=== PATIENT | female | born 2000 | race Caucasian/White ===

== ENCOUNTER 2020-05-05 18:26 | Observation (INO) | payer OTHER, SELFPAY ==
[2020-05-05] VITALS (8 sets, daily range): BP systolic 124–136; BP diastolic 62–86; PULSE 55–112; RESP 16–20; TEMP 37.3–37.4; O2SAT 97–100; BMI 22.4
--- NOTE | ~2020-05-05 | XR_ITS ---
EXAMINATION: XR abdomen/kub 1V DATE: 05/05/2020 19:20 INDICATION: Chest and abdominal burning pain. Vomiting. TECHNIQUE: A supine view of the abdomen was obtained. COMPARISON: None. FINDINGS: There are no dilated loops of bowel. There is a small volume of stool in the colon. A 2 mm calcification in right pelvis may be a phlebolith. IMPRESSION: 1. Normal bowel gas pattern. Reviewed, dictated and finalized at location A.
--- NOTE | ~2020-05-05 | CT_ITS ---
EXAMINATION: CT abdomen pelvis w con DATE: 05/05/2020 19:45 INDICATION: Epigastric abdominal pain. Nausea and vomiting. TECHNIQUE: Computed tomography (CT) of the abdomen and pelvis was performed with 100 mL Omnipaque 350 intravenous contrast. Automated exposure control and iterative reconstruction technique were employe d. The dose-length product was 219.98 mGy-cm. COMPARISON: None. FINDINGS: The visualized portions of the lung bases are clear without pneumonia or pleural effusion. The heart size is normal. No pericardial effusion. The liver demonstrates focal steatosis adjacent to ligamentum teres. The gallbladder, spleen, pancreas, adrenal glands, and kidneys are normal. There a re no dilated loops of bowel. The appendix is normal. There are no pathologically enlarged lymph node s. There is no free intraperitoneal fluid. The bones are unremarkable. IMPRESSION: 1. No etiology for the patient's symptoms. Reviewed, dictated and finalized at location A.
--- NOTE | 2020-05-05 18:49 | ED.ABDPAIN ---
HPI - Abdominal Pain General Chief Complaint: Abdominal Pain <Jonh Cervantes PA-C - Last Filed: 05/05/20 20:43> Stated Complaint: abd pain, burning <Jonh Cervantes PA-C - Last Filed: 05/05/20 20:43> Time Seen by Provider: 05/05/20 18:31 <Jonh Cervantes PA-C - Last Filed: 05/05/20 20:43> Source: patient <Jonh Cervantes PA-C - Last Filed: 05/05/20 20:43> Mode of arrival: ambulatory <Jonh Cervantes PA-C - Last Filed: 05/05/20 20:43> Limitations: no limitations <Jonh Cervantes PA-C - Last Filed: 05/05/20 20:43> History of Present Illness HPI narrative: Patient is a 19-year-old female who presents from urgent care noting nausea vomiting and intermittent abdominal pain that is been going on for over a month noting that she gets bouts of emesis denies any hematemesis diarrhea rectal bleeding urinary symptoms or vaginal complaints has been seen for this complaint in the past is currently not taking anything for her symptoms and is followed by primary care on arrival denies any pain <Jonh Cervantes PA-C - Last Filed: 05/05/20 20:43> Related Data Home Medications: Home Medications Medication Instructions Recorded Confirmed paroxetine HCl mg PO 05/05/20 <Jonh Cervantes PA-C - Last Filed: 05/05/20 20:43> Allergies/Adverse Reactions: Allergies Allergy/AdvReac Type Severity Reaction Status Date / Time No Known Allergies Allergy Verified 05/05/20 18:59 <Jonh Cervantes PA-C - Last Filed: 05/05/20 20:43> Review of Systems Review of Systems: All systems reviewed & are unremarkable except as noted in HPI and below <Jonh Cervantes PA-C - Last Filed: 05/05/20 20:43> [facility] Past Medical History Medical History: Medical History No significant past medical history <Jonh Cervantes PA-C - Last Filed: 05/05/20 20:43> Surgical History Surgical History: Surgical History No significant past surgical history <Jonh Cervantes PA-C - Last Filed: 05/05/20 20:43> Social History Social History: Social History Smoking status: Unknown if ever smoked Gender identity (if verbalized by the patient): Female <Jonh Cervantes PA-C - Last Filed: 05/05/20 20:43> Exam Narrative: Exam Narrative: GENERAL: Well-appearing, well-nourished, and in no acute distress. HEAD: Normocephalic, atraumatic. EYES: PERRLA and EOMI. ENT: Nares clear, no rhinorrhea or epistaxis. Mucous membranes moist. CHEST: Clear to auscultation. No respiratory distress. No wheezes rales or rhonchi HEART: Regular rate and rhythm. No murmur heard. Normal peripheral pulses. ABDOMEN: Soft, nontender, nondistended EXTREMITIES: Normal range of motion. No edema. SKIN: Warm, dry, no rash. NEURO: No focal deficits. Alert and oriented x3. PSYCH: Normal mood and affect. <Jonh Cervantes PA-C - Last Filed: 05/05/20 20:43> Course Course Emergency Course: Patient in the room in no distress aware of case findings treatment plan and diagnosis will be kept in hospital <Jonh Cervantes PA-C - Last Filed: 05/05/20 20:43> DESTINATION IMAGINATION COORDINATOR/PA Physician Supervision For this patient encounter, I reviewed the DESTINATION IMAGINATION COORDINATOR or PA documentation, treatment plan, and medical decision making; and I had [id number] time with this patient. <Jennifer Connor MD - Last Filed: 05/05/20 19:52> Consultations Consultation #1: Discussed case with hospitalist who is agreed to accept the patient <Jonh Cervantes PA-C - Last Filed: 05/05/20 20:43> Date: 05/05/20 <JENNY Colón Last Filed: 05/05/20 20:43> Time: 20:36 <Jonh Cervantes PA-C - Last Filed: 05/05/20 20:43> Vital Signs Vital signs: Vital Signs Temperature 37.4 C 05/05/20 18:29 Pulse Rate 112 H 05/05/20 18:29 Respiratory Rat
[2020-05-05] MEDS: FAMOTIDINE 20 MG/2 ML VIAL IV PUSH (18:58)
[2020-05-05] MEDS: SODIUM CHLORIDE 0.9% IV 1,000 ML 999 ML IV CONT ×2 (18:59→19:59)
[2020-05-05 19:11] LABS: Basophils Absolute Auto 0.1 K/mm3 (0.0-0.1); Basophils Percent Auto 0.4 % (0.2-1.2); Eosinophils Percent Auto 0.1 % (0-4.4); Hematocrit 47.5 % (37.0-47.0); Hemoglobin 16.5 g/dL (12.0-15.0); Immature Granulocyte Absolute 0.05 K/mm3 (0.00-0.031); Immature Granulocyte Percent A 0.3 % (0-0.5); Lymphocytes Absolute Auto 2.41 K/mm3 (0.9-3.2); Lymphocytes Percent Auto 15.3 % (18.3-44.2); Mean Corpuscular HGB Conc 34.7 g/dl (32-36); Mean Corpuscular Hemoglobin 29.5 pg (26-34); Mean Corpuscular Volume 84.8 fl (80-100); Mean Platelet Volume 10.9 fl (7.4-10.4); Monocytes Absolute Auto 1.5 K/mm3 (0.1-0.6); Monocytes Percent Auto 9.6 % (2.6-8.5); Neutrophils Absolute Auto 11.7 K/mm3 (1.3-6.7); Neutrophils Percent Auto 74.3 % (45.5-73.1); Platelet Count Result 375 k/mm3 (150-375); Red Cell Distribution Width 13.2 % (11.5-14.5); White Blood Count 15.8 K/mm3 (4.5-10.0)
[2020-05-05 19:17] LABS: Add Urine Microscopic? YES; Appearance Urine Clear (Clear); Bacteria Urine Trace /hpf; Bilirubin Urine Negative (Negative); Blood Urine 2+ (Negative); Color Urine Yellow (Yellow); Glucose Urine UA Negative (Negative); Ketones Urine 2+ mg/dL (Negative); Leukocyte Esterase Ur Negative LEU/UL (Negative); Mucus Urine Few /lpf; Nitrate Urine Negative (Negative); Protein Urine 1+ mg/dL (Negative); RBC Urine 0-2 /hpf (0-2); Specific Grav Ur 1.025 (1.001-1.035); Squamous Epithelial Cell Urine Moderate /hpf (Few)
[2020-05-05 19:25] LABS: Alanine Aminotransferase 30 U/L (4-35); Albumin Level 5.3 g/dL (3.5-5.1); Alkaline Phosphatase 78 U/L (38-126); Aspartate Amino Transferase 35 U/L (14-36); Bilirubin,Total 0.8 mg/dL (0.2-1.3); Blood Urea Nitrogen 19 mg/dL (7-17); Calcium 10.2 mg/dL (8.4-10.2); Carbon Dioxide 31 mmol/L (22-30); Chloride 87 mmol/L (98-107); Estimated CRCL calculation 77 ml/min; Estimated Glomerular Filt Rate > 60; Glucose 115 mg/dL (65-105); Lipase 57 U/L (23-300); Potassium 2.5 mmol/L (3.4-5.0); Sodium 135 mmol/L (137-145)
--- NOTE | 2020-05-05 19:31 | ECG_ITS ---
Measurements Intervals [place] Rate: 99 P: 68 HI: 161 QRS: 64 QRSD: 85 T: 36 QT: 336 QTc: 432 Interpretive Statements SINUS RHYTHM NORMAL ECG Electronically Signed On 05-06-2020 7:04:10 CDT by Arnoldo Leos D.O.
--- NOTE | 2020-05-05 22:15 | ADMGEN ---
This patient, Luciana Lepe, was admitted to 2 Medical Room 250-01. Patient/family oriented to hospital policies and general routines including ID bracelet, bed and alarms, visiting hours, pain management, procedures, bathroom and other care routines, personal items, smoking policy, room service/diet, and visiting hours. Valuables list has been completed. Information on how to activate the Rapid Response Team has been discussed. Patient/Family are encouraged to report perceived risks to care and to ask questions if they do not understand what they are told or what they should do.
[2020-05-05] MEDS: POTASSIUM CHLORIDE 20 MEQ PACKET (FOR LIQUID) 40 MEQ PO (22:26)
--- NOTE | 2020-05-05 23:00 | PM.IMHP ---
H&P: HPI History of Present Illness Chief complaint: Vomiting, abdominal pain Narrative: Date and time of patient contact: 05/05/2020 at 11:00 p.m. Luciana Lepe is a 19 year old female with a past medical history of anxiety and GERD who presented to the ER with 1 week of periumbilical abdominal pain and heartburn associated with vomiting. The patient reports that she has had 5 similar episodes to this over the last 3 months. She received a short course of Protonix for 14 days in December and a short course of Pepcid in March. She stop taking the Pepcid as she thought it may have been making her symptoms worse. She reports that she has been having heartburn with intermittent emesis. She reports that when she has a heartburn symptoms that will use in the last couple of hours before resolving. The pain is usually worse right before she has emesis and right after. She denies any hematemesis or coffee-ground emesis. She also eats a lot of tomato based products and juice. She thinks that her weight was around 130 lb when she was last at her doctor's office several months ago. Her weight currently is around 115 lbs. She has had a generally poor appetite and has been smoking marijuana 2 to 3 times a week to try to help. In hindsight, the patient agrees that marijuana may have actually been making her more nauseated. She denies any hematochezia or melena. She only reports the shortness of breath associated with the heartburn 10 accompanies other stomach symptoms. She denies any fevers or chills. She has not had any cough or congestion. ER staff reported the patient was still having intractable nausea and vomiting. However the time of my evaluation the patient stated she had not had any vomiting since presentation but had had some nausea. She is currently drinking the oral potassium supplement that I had ordered. She states that she has a terrible problem with anxiety. She is reluctant to take medications as she is worried about side effects. She was started on Paxil about 2 weeks ago. Review of Systems Review of Systems: Narrative: 12 systems were reviewed with pertinent positives and negatives per HPI. Except as documented in the HPI, all other systems were reviewed and are negative. [facility] Past Medical History Medical History (Updated 05/06/20 @ 01:32 by Miley Tellez DO) Anxiety GERD (gastroesophageal reflux disease) Surgical History Surgical History No significant past surgical history Family History Family History (Updated 05/05/20 @ 22:37 by Kerrie Mckay RN) Other Breast cancer Grandparent Cancer of lung Social History Social History (Updated 05/06/20 @ 01:26 by Milye Tellez, ) Social History: Primary care provider: Jonna HENDERSON Smoking status: Never smoker Alcohol intake: current Alcohol use details: She drinks an alcoholic beverage once every couple of months. Substance use: current Substance use type: marijuana Other substance usage details: marijuana help with appetite 2-3 week Living arrangements: with family Additional living arrangements comments: She lives with her boyfriend and her 2 older sisters. Her younger brother and sister live with other family members. She reports that her sisters are the family members that watch out for her. Occupation/Education: occupation Additional occupation/education comments: She works at [employer]. She wants to start going to school and is interested in studying either nursing or law. Gender identity (if verbalized by the patient): Female Spiritual care concerns: No Meds Home Medications and Allergies Home Medications Medication Instructions Recorded Confirmed Type paroxetine HCl 10 mg PO DAILY 05/05/20 05/05/20 History Allergies Allergy/AdvReac Type Severity Reaction Status Date / Time No Known Allergies Allergy Verified
[2020-05-05] MEDS: PANTOPRAZOLE SODIUM IV 40 MG VIAL IV PUSH (23:57)
[2020-05-06] VITALS (7 sets, daily range): BP systolic 110–115; BP diastolic 63–71; PULSE 55–88; RESP 16–17; TEMP 36.5–37.2; O2SAT 99–100; BMI 22.4
[2020-05-06 05:48] LABS: Basophils Percent Auto 0.5 % (0.2-1.2); Eosinophils Absolute Auto 0.1 K/mm3 (0-0.3); Eosinophils Percent Auto 0.6 % (0-4.4); Hematocrit 37.7 % (37.0-47.0); Hemoglobin 12.7 g/dL (12.0-15.0); Immature Granulocyte Absolute 0.02 K/mm3 (0.00-0.031); Immature Granulocyte Percent A 0.2 % (0-0.5); Lymphocytes Absolute Auto 3.13 K/mm3 (0.9-3.2); Lymphocytes Percent Auto 38.6 % (18.3-44.2); Mean Corpuscular HGB Conc 33.7 g/dl (32-36); Mean Corpuscular Hemoglobin 29.2 pg (26-34); Mean Corpuscular Volume 86.7 fl (80-100); Mean Platelet Volume 10.4 fl (7.4-10.4); Monocytes Percent Auto 12.1 % (2.6-8.5); Neutrophils Absolute Auto 3.9 K/mm3 (1.3-6.7); Platelet Count Result 254 k/mm3 (150-375); Red Blood Count 4.35 M/mm3 (4.2-5.4); White Blood Count 8.1 K/mm3 (4.5-10.0)
[2020-05-06 06:52] LABS: Blood Urea Nitrogen 10 mg/dL (7-17); Calcium 8.9 mg/dL (8.4-10.2); Carbon Dioxide 30 mmol/L (22-30); Chloride 101 mmol/L (98-107); Estimated CRCL calculation 87 ml/min; Estimated Glomerular Filt Rate > 60; Glucose 91 mg/dL (65-105); Potassium 3.6 mmol/L (3.4-5.0); Sodium 135 mmol/L (137-145)
[2020-05-06] MEDS: PAROXETINE 10 MG TABLET PO (09:51)
[2020-05-06] MEDS: PANTOPRAZOLE SODIUM IV 40 MG VIAL IV PUSH (09:51)
--- NOTE | 2020-05-06 13:56 | PCCCNOTE ---
On 05/06/20, the student, Yoana Adkins, provided care and completed [facility] documentation on this patient. I have reviewed the student's documentation and agree with the findings.
--- NOTE | 2020-05-06 15:52 | PM.DS ---
DS: Admitting Diagnosis Admitting Diagnosis Admitting Diagnosis: Hypokalemia DS: Discharge Diagnosis Discharge Diagnosis (1) Nausea and vomiting: Code(s): R11.2 - Nausea with vomiting, unspecified Status: Acute Assessment and Plan: Patient presented with nausea and vomiting which she reports has been ongoing intermittently for over a month. There was no evidence of infectious etiology. CT a/p was benign. There may be a component of cyclic vomiting secondary to regular marijuana use. N/V subsided and she was able to advance to a regular diet. She has discussed being evaluated by a client account representative with her PCP and will follow up on this. (2) Acute hypokalemia: Code(s): E87.6 - Hypokalemia Status: Acute Assessment and Plan: She developed acute hypokalemia at presentation secondary to vomiting which was replaced and potassium levels stabilized. (3) Acute dehydration: Code(s): E86.0 - Dehydration Status: Acute Assessment and Plan: Secondary to persistent vomiting and poor oral intake. She was rehydrated with IV fluids. (4) GERD (gastroesophageal reflux disease): Code(s): K21.9 - Gastro-esophageal reflux disease without esophagitis Status: Acute Assessment and Plan: She was given IV protonix and educated on dietary and lifestyle changes. She may continue OTC antacids as an outpatient and follow up with PCP. DS: Summary Hospital Course Reason for hospitalization: Nausea and vomiting Hospital Course: Luciana Lepe is a 19 year old female with a history of anxiety and GERD who presented to the emergency department on 05/05/20 after being evaluated at urgent care for persistent nausea and vomiting. She complained of periumbilial abdominal pain, nausea, vomiting, and heartburn ongoing approximately 1 week, but these symptoms have been recurrent for over 3 months. She denied hematemesis or coffee-ground emesis. At presentation, vitals were stable, WBC 15.8, sodium 135, potassium 2.5, glucose 115, magnesium 2.0, lipase 57, abdominal x-ray with normal bowel gas pattern and CT a/p demonstrating normal gall bladder, pancreas, and no etiology for symptoms. She was admitted to the hospitalist service on 05/05/2020 and was treated with supportive therapy including IV fluids, antiemetics, and analgesics. She was able to advance her diet from clear liquids to regular diet. Her abdominal pain resolved as did her nausea and vomiting. She began feeling much better and requested discharge. Given her symptomatic improvement and stable labs, she was determined to no longer require inpatient care. We discussed advancing her diet slowly, lifestyle modifications for GERD, and worrisome signs and symptoms for which to return. All of her questions were answered. She was discharged home in hemodynamically stable condition on the afternoon of 05/06/2020. Status at Discharge Functional status at discharge: independent ambulation Overall status at discharge: patient is progressing back to baseline Time Spent with Patient Time attestation: Total time spent providing and/or coordinating discharge services:35 minutes Time spent: Greater than 30 minutes Exam Narrative: Exam Narrative: Ms. Lepe is examined alone today. She is a well nourished, well-appearing 19 year old female who is lying supine in bed. She appears comfortable and is in NARD. At time of discharge, HR 68, BP 110/67, RR 17, T 98.9, 99% on room air Neuro: awake, alert and oriented x4, speech clear, no focal neuro deficits noted HEENMT: normocephalic, atraumatic, EOMI, sclerae anicteric, moist oral mucosa, tongue midline Neck: supple, no lymphadenopathy Respiratory: clear to auscultation bilaterally, normal respiratory effort without accessory muscle use Cardio: regular rate, regular rhythm, normal S1 and S2 Abdomen: normal to inspection, nondistended, normoactive bowel sounds, soft, nontender to palpation, no rig
== END 2020-05-06 17:16 | disposition home or self-care (01) ==
LOC: ANHED 20:46 → ANH2MED 05-06 01:02
PROVIDERS: Emergency Medicine Emergency Medical Services; Admitting Provider Internal Medicine; Emergency Provider Emergency Medicine; PCP Physician Assistant; Visit Provider Physician Assistant
DX: E87.6 Hypokalemia (principal); E86.0 Dehydration; R11.2 Nausea with vomiting, unspecified; K21.9 Gastro-esophageal reflux disease without esophagitis; F41.9 Anxiety disorder, unspecified
CPT/HCPCS: 36415; 74018; 74177; 80048; 80053; 81001; 81025; 83690; 83735; 85025; 93005; 96365; 96374; 96375; 99285; A9270; C9113; G0378; G0379; J0131; J3480; J7030; Q9967

== ENCOUNTER 2020-08-19 15:44 | Emergency (ER) | payer OTHER, SELFPAY ==
[2020-08-19 15:57] VITALS: BP 110/59; PULSE 103; RESP 16; TEMP 37; O2SAT 100
--- NOTE | 2020-08-19 16:01 | ED.GENADULT ---
HPI - General Adult General Chief complaint: Skin/Abscess/Foreign Body Stated complaint: Hand laceration Time Seen by Provider: 08/19/20 16:01 Source: patient Mode of arrival: ambulatory Limitations: no limitations History of Present Illness HPI narrative: 19-year-old female patient presents to the [facility] with complaints of right hand laceration. 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 Patient states her last tetanus shot was 2016. Related Data Home Medications Medication Instructions Recorded Confirmed No Home Medications 08/19/20 08/19/20 Allergies Allergy/AdvReac Type Severity Reaction Status Date / Time No Known Allergies Allergy Verified 08/19/20 15:59 Review of Systems Review of Systems: Narrative: CONSTITUTIONAL: Denies fever, chills, or sweats. EYES: Denies visual changes, redness, or discharge. ENT: Denies rhinorrhea, congestion, sore throat, or otalgia. CARDIOVASCULAR: Denies chest pain, palpitations, or edema. RESPIRATORY: Denies cough or dyspnea. GASTROINTESTINAL: Denies abdominal pain, nausea, vomiting, or diarrhea. GENITOURINARY: Denies dysuria or hematuria. SKIN: Denies rash or itching. Positive laceration right hand MUSCULOSKELETAL: Denies back pain, joint pain, or myalgia. NEUROLOGIC: Denies headache, numbness, or weakness. PSYCHIATRIC: Denies anxiety or depression. [facility] Past Medical History Medical History Anxiety GERD (gastroesophageal reflux disease) Surgical History Surgical History No significant past surgical history Family History Family History Other Breast cancer Grandparent Cancer of lung Social History Social History Social History: Primary care provider: Jonna HENDERSON Smoking status: Never smoker Alcohol intake: current Substance use: current Substance use type: marijuana Other substance usage details: marijuana help with appetite 2-3 week Additional living arrangements comments: She lives with her boyfriend and her 2 older sisters. Her younger brother and sister live with other family members. She reports that her sisters are the family members that watch out for her. Additional occupation/education comments: She works at [employer]. She wants to start going to school and is interested in studying either nursing or law. Gender identity (if verbalized by the patient): Female Spiritual care concerns: No Comments At the time of my signature I agree with nursing past medical history, surgical, social, and family history. There is no relevant family history pertinent to the presenting complaint. Exam Narrative: Exam Narrative: GENERAL: Well-appearing, well-nourished, and in no acute distress. HEAD: Normocephalic, atraumatic. EYES: PERRLA and EOMI. ENT: Nares clear, no rhinorrhea or epistaxis. Mucous membranes moist. NECK: Supple. No lymphadenopathy CHEST: Clear to auscultation. No respiratory distress. HEART: Regular rate and rhythm. No murmur heard. Normal peripheral pulses. ABDOMEN: Soft, nontender, nondistended, normal active bowel sounds. EXTREMITIES: The R hand is without obvious asymmetry or deformity when compared to the L hand. No swelling, erythema, atrophy, or obvious deformity. Patient has approximately 4 cm linear laceration on the palm side of the right hand at the base of the right thumb. There is no gaping wound noted. It is very superficial. No nail avulsion, tissue avulsion, partial or complete amputation, subungual hematoma, bony deformity. Normal cascade of fingers. Normal flexion and extension of fingers. FDS and FDP intact aganist restistance. No focal fullness, thobbing pain, swelling of fingertip. No tenderness to palpation. Pulses and
== END 2020-08-19 16:24 | disposition home or self-care (01) ==
PROVIDERS: Emergency Provider Nurse Practitioner Family; PCP Physician Assistant
DX: S61.411A Laceration without foreign body of right hand, initial encounter (principal); W26.8XXA Contact with other sharp object(s), not elsewhere classified, initial encounter; K21.9 Gastro-esophageal reflux disease without esophagitis
CPT/HCPCS: 99212; G0463

== ENCOUNTER 2020-09-08 11:24 | Emergency (ER) | payer OTHER, SELFPAY ==
--- NOTE | ~2020-09-08 | US_ITS ---
EXAMINATION: US OB <=14 wk fetus w TV DATE: 09/08/2020 13:45 INDICATION: Nausea and vomiting. Abdominal pain. . TECHNIQUE: Real-time transabdominal and transvaginal pelvic ultrasound was performed. COMPARISON: None. FINDINGS: TRANSABDOMINAL ULTRASOUND: The uterus measures 8.3 x 3.4 x 4.7 cm. TRANSVAGINAL ULTRASOUND: There is an intrauterine gestational sac with mean diameter of 8 mm which co rrelates with an estimated gestational age of 5 weeks and 3 days +/- 3 days. A yolk sac is identified . No pole is identified. The right ovary measures 2.5 x 1.8 x 2.3 cm. The left ovary measures 1 .8 x 1.4 x 1.3 cm. There is no free fluid in the pelvis. IMPRESSION: 1. Single intrauterine gestation with estimated date of delivery of 05/08/2021. Reviewed, dictated and finalized at location A.
[2020-09-08 11:28] VITALS: BP 146/72; PULSE 72; RESP 20; TEMP 36.2; O2SAT 100
[2020-09-08 11:35] VITALS: BP 131/65; PULSE 90; RESP 18; O2SAT 100
[2020-09-08] MEDS: ONDANSETRON INJ 4 MG/2 ML VIAL IV PUSH (11:44)
[2020-09-08] MEDS: LACTATED RINGERS 1,000 ML 999 ML IV CONT (11:44)
[2020-09-08] MEDS: PANTOPRAZOLE SODIUM IV 40 MG VIAL IV PUSH (11:44)
[2020-09-08 11:52] LABS: Basophils Absolute Auto 0.1 K/mm3 (0.0-0.1); Basophils Percent Auto 0.5 % (0.2-1.2); Eosinophils Absolute Auto 0.1 K/mm3 (0-0.3); Eosinophils Percent Auto 0.4 % (0-4.4); Hematocrit 38.4 % (37.0-47.0); Hemoglobin 13.1 g/dL (12.0-15.0); Immature Granulocyte Absolute 0.06 K/mm3 (0.00-0.031); Immature Granulocyte Percent A 0.4 % (0-0.5); Lymphocytes Absolute Auto 2.21 K/mm3 (0.9-3.2); Lymphocytes Percent Auto 16.2 % (18.3-44.2); Mean Corpuscular HGB Conc 34.1 g/dl (32-36); Mean Corpuscular Hemoglobin 30.2 pg (26-34); Mean Corpuscular Volume 88.5 fl (80-100); Mean Platelet Volume 10.4 fl (7.4-10.4); Monocytes Absolute Auto 0.9 K/mm3 (0.1-0.6); Monocytes Percent Auto 6.3 % (2.6-8.5); Neutrophils Absolute Auto 10.4 K/mm3 (1.3-6.7); Neutrophils Percent Auto 76.2 % (45.5-73.1); Platelet Count Result 351 k/mm3 (150-375); Red Blood Count 4.34 M/mm3 (4.2-5.4); Red Cell Distribution Width 12.6 % (11.5-14.5); White Blood Count 13.7 K/mm3 (4.5-10.0)
--- NOTE | 2020-09-08 11:57 | ED.NAVMDI ---
HPI - Nausea/Vomiting/Diarrhea General Chief complaint: Nausea/Vomiting/Diarrhea Stated complaint: nausea, vomiting Time Seen by Provider: 09/08/20 11:26 Source: patient Mode of arrival: ambulatory Limitations: no limitations History of Present Illness HPI Narrative: THis patient is a 19 year old female who presents for evaluation of epigasric abdominal pain with nausea and vomiting. She reports this morning she developed nausea and vomiting . She describes her emesis as phlegm. She also reports epigastric burning pain. She denies associated diarrhea, fever, chills or urinary symptoms. Her last menstrual cycle was 07/27/20 but she reports she has history of irregular menstrual cycles . She reports these symptoms are similar to previous episodes of cyclic vomiting. MD elicited complaint: nausea and vomiting Related Data Home Medications Medication Instructions Recorded Confirmed paroxetine HCl mg PO 09/08/20 Allergies Allergy/AdvReac Type Severity Reaction Status Date / Time No Known Allergies Allergy Verified 09/08/20 11:27 Review of Systems Review of Systems: All systems reviewed & are unremarkable except as noted in HPI and below PMFSH Past Medical History Medical History (Updated 09/08/20 @ 14:40 by Kitty Boland MD) Anxiety GERD (gastroesophageal reflux disease) Surgical History Surgical History No significant past surgical history Family History Family History Other Breast cancer Grandparent Cancer of lung Social History Social History Social History: Primary care provider: Jonna HENDERSON Smoking status: Never smoker Alcohol intake: current Substance use: current Substance use type: marijuana Other substance usage details: marijuana help with appetite 2-3 week Additional living arrangements comments: She lives with her boyfriend and her 2 older sisters. Her younger brother and sister live with other family members. She reports that her sisters are the family members that watch out for her. Additional occupation/education comments: She works at [employer]. She wants to start going to school and is interested in studying either nursing or law. Gender identity (if verbalized by the patient): Female Spiritual care concerns: No Exam Const: General: no acute distress and alert Orientation/consciousness: patient oriented x3 HENMT: Head: normocephalic and atraumatic Ears: TM's normal bilaterally Face and sinus: face symmetric Mouth: Yes Normal oral and palatal mucosa present, Yes lip normal and Yes oropharynx normal Eyes: EOM: EOMs intact bilaterally Chest: Chest palpation & inspection: normal inspection of the chest Resp: Effort & Inspection: normal respiratory effort and no retractions Auscultation: clear to auscultation bilaterally Cardio: Rate: regular rate Rhythm: regular rhythm Heart sounds: no murmurs GI: GI Palp: Yes Soft to palpation, Yes Tenderness to palpation present (GI) (epigastric), No Guarding due to palpation present (GI), No Rigid due to palpation and No Hernia present Skin: General skin exam: normal color Rashes: no rashes Neuro: General: patient oriented x3 and moves all extremities Extrem: General: normal to inspection Course Reevaluation(s) Reevaluation #1: I have discussed with patient that she is 5 weeks . She reports she feels better in regards to her nausea, vomiting and abdominal pain. Date: 09/08/20 Time: 14:01 Reevaluation #2: Patient has been able to tolerate PO. She is ready for discharge home Date: 09/08/20 Time: 14:38 Vital Signs Vital signs: Vital Signs Temperature 97.1 F L 09/08/20 11:28 Pulse Rate 72 09/08/20 11:28 Respiratory Rate 20 09/08/20 11:28 Blood Pressure 146/72 H 09/08/20 11:28 Pulse Oximetry 100 1
[2020-09-08 12:07] LABS: Alanine Aminotransferase 16 U/L (4-35); Albumin Level 4.7 g/dL (3.5-5.1); Alkaline Phosphatase 73 U/L (38-126); Anion Gap 16 mmol/L (8-16); Aspartate Amino Transferase 21 U/L (14-36); Bilirubin,Total 0.6 mg/dL (0.2-1.3); Blood Urea Nitrogen 7 mg/dL (7-17); Calcium 9.8 mg/dL (8.4-10.2); Carbon Dioxide 15 mmol/L (22-30); Chloride 107 mmol/L (98-107); Estimated CRCL calculation 108 ml/min; Estimated Glomerular Filt Rate > 60; Glucose 192 mg/dL (65-105); Lipase 71 U/L (23-300); Sodium 138 mmol/L (137-145)
[2020-09-08 12:10] VITALS: BP 124/66; PULSE 80; RESP 18; O2SAT 100
[2020-09-08 12:22] LABS: Alveolar/Arterial O2 Gradient 15.8 mmHg; Base Excess ABG -9.2 mEq/l (+/-2.0); Carboxyhemoglobin 0.3 % THb (0-2.0); Fractional Inspired Oxygen 21 %; HCO3 ABG 13.1 mEq/l (22.0-26.0); Methemoglobin ABG 0.1 %THb (0-1.5); Oxygen Content ABG 17.1 %vol (16.0-22.0); Oxygen Saturation ABG 98.2 % (95.0-100.0); Oxyhemoglobin 97.1 % THb (90.0-100.0); PO2 ABG 109.3 mmHg (80.0-100.0); Reduced Hemoglobin 2.5 %THb (0-5.0); Total Hemoglobin 12.4 g/dL (12.0-18.0); pH ABG 7.422 (7.350-7.450)
[2020-09-08 12:24] LABS: Device ROOM AIR; PCO2 ABG 20.6 mmHg (35.0-45.0); Site Drawn RIGHT BRACHIAL
[2020-09-08 12:43] LABS: Lactic Acid Reflex 3.2 mmol/L (0.7-2.1)
[2020-09-08 12:53] LABS: Add Urine Microscopic? YES; Appearance Urine Cloudy (Clear); Bacteria Urine Trace /hpf; Bilirubin Urine Negative (Negative); Blood Urine Negative (Negative); Color Urine Yellow (Yellow); Glucose Urine UA 3+ mg/dL (Negative); Ketones Urine 2+ mg/dL (Negative); Leukocyte Esterase Ur 1+ LEU/UL (Negative); Mucus Urine Rare /lpf; Nitrate Urine Negative (Negative); Protein Urine Negative (Negative); RBC Urine 0-2 /hpf (0-2); Specific Grav Ur 1.012 (1.001-1.035); Squamous Epithelial Cell Urine Many /hpf (Few); Urobilinogen Urine Negative mg/dL (<2.0)
[2020-09-08] MEDS: DEXTROSE 5%/LACTATED RINGERS 1,000 ML 1000 ML IV CONT (13:41)
[2020-09-08 13:45] VITALS: BP 137/90; PULSE 75; RESP 18; O2SAT 100
[2020-09-08] MEDS: METOCLOPRAMIDE HCL INJ 10 MG/2 ML VIAL IV PUSH (13:45)
[2020-09-08 14:48] VITALS: BP 125/62; PULSE 92; RESP 18; O2SAT 98
[2020-09-08 15:28] LABS: Reflex Lactic Acid Yes or No Add Lactic
== END 2020-09-08 14:50 | disposition home or self-care (01) ==
PROVIDERS: Emergency Provider General Practice; PCP Physician Assistant
DX: O21.9 Vomiting of pregnancy, unspecified (principal); Z3A.01 Less than 8 weeks gestation of pregnancy; O99.341 Other mental disorders complicating pregnancy, first trimester; F41.9 Anxiety disorder, unspecified; O99.611 Diseases of the digestive system complicating pregnancy, first trimester; K21.9 Gastro-esophageal reflux disease without esophagitis
CPT/HCPCS: 36415; 36600; 76801; 76817; 80053; 81001; 81025; 82375; 82805; 83050; 83605; 83690; 84702; 85025; 85461; 96361; 96374; 96375; 99284; C9113; J2405; J2765; J7120; J7121

== ENCOUNTER 2020-10-06 19:12 | Emergency (ER) | payer OTHER, SELFPAY ==
[2020-10-06 19:14] VITALS: BP 116/52; PULSE 99; RESP 20; TEMP 36.6; O2SAT 100
[2020-10-06 19:28] LABS: Basophils Percent Auto 0.2 % (0.2-1.2); Hematocrit 37.1 % (37.0-47.0); Hemoglobin 12.7 g/dL (12.0-15.0); Immature Granulocyte Absolute 0.07 K/mm3 (0.00-0.031); Immature Granulocyte Percent A 0.4 % (0-0.5); Lymphocytes Absolute Auto 1.52 K/mm3 (0.9-3.2); Lymphocytes Percent Auto 8.7 % (18.3-44.2); Mean Corpuscular HGB Conc 34.2 g/dl (32-36); Mean Corpuscular Hemoglobin 30.3 pg (26-34); Mean Corpuscular Volume 88.5 fl (80-100); Monocytes Absolute Auto 0.7 K/mm3 (0.1-0.6); Monocytes Percent Auto 3.8 % (2.6-8.5); Neutrophils Absolute Auto 15.1 K/mm3 (1.3-6.7); Neutrophils Percent Auto 86.9 % (45.5-73.1); Platelet Count Result 316 k/mm3 (150-375); Red Blood Count 4.19 M/mm3 (4.2-5.4); Red Cell Distribution Width 13.5 % (11.5-14.5); White Blood Count 17.4 K/mm3 (4.5-10.0)
[2020-10-06 19:45] LABS: Alanine Aminotransferase 26 U/L (4-35); Albumin Level 4.4 g/dL (3.5-5.1); Alkaline Phosphatase 50 U/L (38-126); Anion Gap 11 mmol/L (8-16); Aspartate Amino Transferase 28 U/L (14-36); Bilirubin,Total 0.6 mg/dL (0.2-1.3); Blood Urea Nitrogen 9 mg/dL (7-17); Calcium 9.9 mg/dL (8.4-10.2); Carbon Dioxide 26 mmol/L (22-30); Chloride 99 mmol/L (98-107); Estimated CRCL calculation 107 ml/min; Estimated Glomerular Filt Rate > 60; Glucose 122 mg/dL (65-105); Lipase 35 U/L (23-300); Potassium 3.4 mmol/L (3.4-5.0); Sodium 136 mmol/L (137-145)
[2020-10-06 19:52] LABS: Add Urine Microscopic? YES; Appearance Urine Cloudy (Clear); Bacteria Urine Trace /hpf; Bilirubin Urine Negative (Negative); Blood Urine Negative (Negative); Color Urine Yellow (Yellow); Glucose Urine UA Negative (Negative); Ketones Urine Trace mg/dL (Negative); Leukocyte Esterase Ur Negative LEU/UL (Negative); Mucus Urine Few /lpf; Nitrate Urine Negative (Negative); Protein Urine 1+ mg/dL (Negative); RBC Urine 0-2 /hpf (0-2); Specific Grav Ur 1.016 (1.001-1.035); Squamous Epithelial Cell Urine Many /hpf (Few); Urobilinogen Urine Negative mg/dL (<2.0); WBC Urine 0-3 /hpf
[2020-10-06 21:15] VITALS: BP 108/54; PULSE 70; RESP 16; TEMP 36.7; O2SAT 100
--- NOTE | 2020-10-06 22:38 | ED.ABDPAIN ---
HPI - Abdominal Pain General Chief Complaint: Abdominal Pain Stated Complaint: acid reflux Time Seen by Provider: 10/06/20 22:24 History of Present Illness HPI narrative: Intermittent burning epigastric pain for the past few weeks. Associated with nausea and vomiting. Not able to tolerate any solid foods. She is currently 10 weeks preganant. She was seen here once earlier in the and was discharged with medications brandon helped to control her symtpoms but those have since run out. She does not have an appointment with her OB until next month. Related Data Home Medications Medication Instructions Recorded Confirmed paroxetine HCl mg PO 09/08/20 Allergies Allergy/AdvReac Type Severity Reaction Status Date / Time No Known Allergies Allergy Verified 10/06/20 19:19 Review of Systems Review of Systems: All systems reviewed & are unremarkable except as noted in HPI and below Constitutional: Constitutional: Denies chills and Denies fever(s) Cardiovascular: Cardiovascular: Denies chest pain Respiratory: Respiratory: Denies dyspnea Gastrointestinal: Gastrointestinal: Reports abdominal pain, Denies constipation, Denies diarrhea, Reports nausea and Reports vomiting Genitourinary: Genitourinary: Denies abnormal vaginal bleeding, Denies hematuria, Denies dysuria and Denies vaginal discharge Neurologic: Denies numbness and Denies weakness PMFSH Past Medical History Medical History (Updated 10/06/20 @ 23:36 by Hunter Mathis MD) Anxiety GERD (gastroesophageal reflux disease) Surgical History Surgical History No significant past surgical history Family History Family History Other Breast cancer Grandparent Cancer of lung Social History Social History Social History: Primary care provider: Jonna HENDERSON Smoking status: Never smoker Alcohol intake: current Substance use: current Substance use type: marijuana Other substance usage details: marijuana help with appetite 2-3 week Additional living arrangements comments: She lives with her boyfriend and her 2 older sisters. Her younger brother and sister live with other family members. She reports that her sisters are the family members that watch out for her. Additional occupation/education comments: She works at [employer]. She wants to start going to school and is interested in studying either nursing or law. Gender identity (if verbalized by the patient): Female Spiritual care concerns: No Exam Const: General: healthy appearing, no acute distress and alert Orientation/consciousness: patient oriented x3 HENMT: Head: normal to inspection Neck: Neck: normal visual inspection and no lymphadenopathy Chest: Chest palpation & inspection: no tenderness Resp: Effort & Inspection: normal respiratory effort Auscultation: clear to auscultation bilaterally, no rales, no rhonchi and no wheezes Cardio: Jugular venous distension: no JVD Rate: regular rate Rhythm: regular rhythm Heart sounds: no murmurs GI: Inspection: non-distended GI Palp: Yes Soft to palpation and Yes Tenderness to palpation present (GI) (mild, epigastric) Skin: General skin exam: normal color Neuro: General: patient oriented x3 and moves all extremities Speech: normal speech Extrem: General: no edema Psych: Appearance: well kempt Affect: normal affect Procedures Other Procedure Procedure 1: Other Procedure: Bedside US Fetus grossly normal for reported dates. Minimal movement FHR 157 Course Vital Signs Vital signs: Vital Signs Temperature 36.6 C 10/06/20 19:14 Pulse Rate 99 10/06/20 19:14 Respiratory Rate 20 10/06/20 19:14 Blood Pressure 116/52 L 10/06/20 19:14 Pulse Oximetry 100 10/06/20 19:14 Temperature 36.7 C 09/22
[2020-10-06] MEDS: PANTOPRAZOLE SODIUM IV 40 MG VIAL IV PUSH (23:30)
[2020-10-06] MEDS: METOCLOPRAMIDE HCL INJ 10 MG/2 ML VIAL IV PUSH (23:33)
[2020-10-06] MEDS: DEXTROSE 5%/0.45% SOD CHL 1,000 ML 1000 ML IV CONT (23:35)
[2020-10-07 01:11] VITALS: BP 118/64; PULSE 61; RESP 20; O2SAT 100
== END 2020-10-07 01:00 | disposition home or self-care (01) ==
LOC: ANHED 22:44
PROVIDERS: General Practice; Emergency Provider Emergency Medicine; PCP Physician Assistant
DX: O21.9 Vomiting of pregnancy, unspecified (principal); O99.611 Diseases of the digestive system complicating pregnancy, first trimester; K21.9 Gastro-esophageal reflux disease without esophagitis; O99.341 Other mental disorders complicating pregnancy, first trimester; F41.9 Anxiety disorder, unspecified; Z3A.10 10 weeks gestation of pregnancy
CPT/HCPCS: 36415; 80053; 81001; 81025; 83690; 85025; 96361; 96374; 96375; 99284; C9113; J2765

== ENCOUNTER 2020-11-19 10:37 | Outpatient (CLI) | payer OTHER, SELFPAY ==
--- NOTE | ~2020-11-19 | US_ITS ---
EXAMINATION: US OB >= 14 weeks Fetus DATE: 11/19/2020 11:26 INDICATION: Routine care, second trimester TECHNIQUE: Real-time ultrasound of the pelvis was performed. COMPARISON: None. FINDINGS: There is a single living fetus in breech presentation. The placenta is posterior. heart rate is 152 beats per minute (bpm). cardiac activity and movement are noted. The amniotic fluid index is subjectively normal. The following biometric data were obtained: Biparietal diameter (BPD): 3.3 cm; head circumference (HC): 10.9 cm; abdominal circumference (AC): 10 .1 cm; femur length (FL): 1.9 cm. Estimated weight is 136 g +/- 20 g, which correlates with the 49th percentile when 05/08/2021 is used as estimated date of delivery. As single measurements, these parameters are each equal to the following estimated gestational ages w ith ranges of +/- 2 standard deviations: BPD: 16 weeks 2 days +/- 1 weeks 1 days. HC: 15 weeks 2 days +/- 1 weeks 1 days. AC: 16 weeks 1 days +/- 1 weeks 5 days. FL: 15 weeks 4 days +/- 1 weeks 3 days. estimated gestational age based solely on measurements from this exam is 15 weeks 6 days +/- 1 weeks 1 days. IMPRESSION: 1. Single living fetus in breech presentation. 2. Estimated weight is 136 g +/- 20 g, which correlates with the 49th percentile when 05/08/2021 is used as estimated date of delivery. Reviewed, dictated and finalized at location A. RANCH MANAGER IMPRESSION: 1. Single living fetus in breech presentation. 2. Estimated weight is 136 g +/- 20 g, which correlates with the 49th per centile when 05/08/2021 is used as estimated date of delivery.
== END 2020-11-19 10:38 | disposition home or self-care (01) ==
PROVIDERS: PCP Physician Assistant; Visit Provider Physician Assistant
DX: Z34.90 Encounter for supervision of normal pregnancy, unspecified, unspecified trimester (principal); Z3A.00 Weeks of gestation of pregnancy not specified
CPT/HCPCS: 76805

== ENCOUNTER 2021-01-13 12:23 | Outpatient (CLI) | payer OTHER, SELFPAY ==
--- NOTE | ~2021-01-13 | US_ITS ---
EXAMINATION: US OB /maternal detail DATE: 01/13/2021 15:40 INDICATION: Routine care. Anatomy. TECHNIQUE: Real-time ultrasound of the pelvis was performed. COMPARISON: Ultrasound 11/19/2020, 09/08/2020 FINDINGS: There is a single living fetus in variable presentation. The placenta is posterior, 8.0 cm from the cervix. heart rate is 138 beats per minute (bpm). The amniotic fluid volume is subjectively nor mal. The following biometric data were obtained: Biparietal diameter (BPD): 5.3 cm; head circumference (HC): 20.2 cm; abdominal circumference (AC): 19 .1 cm; femur length (FL): 4.3 cm. These measurements are concordant. Estimated weight is 622 g +/- 93 g, which correlates with 49th percentile when 05/08/21 is used as estimated date of delivery. As single measurements, these parameters are each equal to the following estimated gestational ages: BPD: 22 weeks 0 days. HC: 22 weeks 3 days. AC: 23 weeks 6 days. FL: 24 weeks 1 days. estimated gestational age based solely on measurements from this exam is 23 weeks 1 days +/- 1 weeks 4 days. The cerebral ventricles, cerebellum, cisterna magna, nuchal fold, and visualized portions of the spin e are normal. The heart is normal. The diaphragm, stomach, kidneys, and bladder are normal. There are two umbilical arteries to yield a 3-vessel cord. The cord insertion is normal. IMPRESSION: 1. Single living fetus in variable presentation. 2. Estimated weight is 622 g +/- 93 g, which correlates with 49th percentile when 05/08/21 is u sed as estimated date of delivery. This date was set by ultrasound on 09/08/20. 3. Normal anatomic survey. Reviewed, dictated and finalized at location A. [employer] PLANNER IMPRESSION: 1. Single living fetus in variable presentation. 2. Estimated weight is 622 g +/- 93 g, which correlates with 49th percen tile when 05/08/21 is used as estimated date of delivery. This date was set by gabriella eklsey on 09/08/20. 3. Normal anatomic survey.
== END 2021-01-13 12:24 | disposition home or self-care (01) ==
PROVIDERS: PCP Physician Assistant; Visit Provider Physician Assistant
DX: Z34.90 Encounter for supervision of normal pregnancy, unspecified, unspecified trimester (principal)
CPT/HCPCS: 76805

== ENCOUNTER 2021-01-15 05:55 | Observation (INO) | payer OTHER, SELFPAY ==
--- NOTE | 2021-01-15 05:55 | OBADM ---
This patient, Luciana Lepe, admitted to the OB room [facility] Post [facility] for observation. Patient/family oriented to hospital policies and general routines including ID bracelet, bed and alarms, visiting hours, pain management, procedures, bathroom and other care routines, personal items, smoking policy, room service/diet, and visiting hours. Patient/Family are encouraged to report perceived risks to care and to ask questions if they do not understand what they are told or what they should do.
[2021-01-15 06:27] VITALS: BP 108/55; PULSE 69
[2021-01-15 06:30] VITALS: RESP 18; TEMP 36.4; BMI 25.4
[2021-01-15 06:31] VITALS: BP 113/61; PULSE 74
[2021-01-15 06:46] VITALS: BP 126/71; PULSE 99
[2021-01-15 07:01] VITALS: BP 121/72; PULSE 92
[2021-01-15 07:16] VITALS: BP 114/61; PULSE 71
[2021-01-15] MEDS: LACTATED RINGERS 1,000 ML 999 ML IV CONT (07:43)
[2021-01-15] MEDS: ONDANSETRON INJ 4 MG/2 ML VIAL IV PUSH (07:50)
[2021-01-15 08:02] LABS: Basophils Absolute Auto 0.1 K/mm3 (0.0-0.1); Basophils Percent Auto 0.3 % (0.2-1.2); Eosinophils Percent Auto 0.2 % (0-4.4); Hematocrit 31.2 % (37.0-47.0); Hemoglobin 10.5 g/dL (12.0-15.0); Immature Granulocyte Absolute 0.15 K/mm3 (0.00-0.031); Immature Granulocyte Percent A 0.8 % (0-0.5); Lymphocytes Absolute Auto 1.63 K/mm3 (0.9-3.2); Lymphocytes Percent Auto 8.2 % (18.3-44.2); Mean Corpuscular HGB Conc 33.7 g/dl (32-36); Mean Corpuscular Hemoglobin 31.3 pg (26-34); Mean Corpuscular Volume 93.1 fl (80-100); Mean Platelet Volume 10.4 fl (7.4-10.4); Monocytes Percent Auto 4.9 % (2.6-8.5); Neutrophils Absolute Auto 17.1 K/mm3 (1.3-6.7); Neutrophils Percent Auto 85.6 % (45.5-73.1); Platelet Count Result 261 k/mm3 (150-375); Red Blood Count 3.35 M/mm3 (4.2-5.4); White Blood Count 19.9 K/mm3 (4.5-10.0)
[2021-01-15 08:07] LABS: Add Urine Microscopic? YES; Appearance Urine Cloudy (Clear); Bacteria Urine Trace /hpf; Bilirubin Urine Negative (Negative); Blood Urine Negative (Negative); Color Urine Yellow (Yellow); Glucose Urine UA Negative (Negative); Ketones Urine Negative (Negative); Leukocyte Esterase Ur Trace LEU/UL (Negative); Mucus Urine Few /lpf; Nitrate Urine Negative (Negative); Protein Urine Negative (Negative); RBC Urine 0-2 /hpf (0-2); Specific Grav Ur 1.019 (1.001-1.035); Squamous Epithelial Cell Urine Many /hpf (Few); Urobilinogen Urine Negative mg/dL (<2.0)
[2021-01-15 08:14] LABS: Alanine Aminotransferase 42 U/L (4-35); Albumin Level 3.6 g/dL (3.5-5.1); Alkaline Phosphatase 61 U/L (38-126); Anion Gap 6 mmol/L (8-16); Aspartate Amino Transferase 28 U/L (14-36); Bilirubin,Total 0.3 mg/dL (0.2-1.3); Blood Urea Nitrogen 7 mg/dL (7-17); Calcium 9.1 mg/dL (8.4-10.2); Carbon Dioxide 24 mmol/L (22-30); Chloride 106 mmol/L (98-107); Estimated Glomerular Filt Rate > 60; Glucose 100 mg/dL (65-105); Potassium 3.5 mmol/L (3.4-5.0); Sodium 136 mmol/L (137-145)
--- NOTE | 2021-01-19 07:47 | P.PNOB_ITS ---
OB - Triage/Final Diagnosis Visit Information Comments/Additional reasons for admission: I have assessed the risk for this patient, Luciana Lepe, and determined that she would benefit from observation care. Evaluation Laboratory results: Laboratory Tests 01/15/21 01/15/21 01/15/21 07:41 07:41 07:41 WBC 19.9 H RBC 3.35 L Hgb 10.5 L Hct 31.2 L MCV 93.1 MCH 31.3 MCHC 33.7 RDW 13.0 Plt Count 261 MPV 10.4 Immature Gran % (Auto) 0.8 H Neut % (Auto) 85.6 H Lymph % (Auto) 8.2 L Bull[place] % (Auto) 4.9 Eos % (Auto) 0.2 Baso % (Auto) 0.3 Lymph # (Auto) 1.63 [place] # (Auto) 1.0 H Eos # (Auto) 0.0 Baso # (Auto) 0.1 Abs Immat Gran (auto) 0.15 H Absolute Neuts (auto) 17.1 H Absolute Nucleated RBC 0.0 Nucleated RBC % 0.0 Sodium 136 L Potassium 3.5 Chloride 106 Carbon Dioxide 24 Anion Gap 6 L BUN 7 Creatinine 0.40 L Estim Creat Clear Calc Not Reportable Estimated GFR > 60 Glucose 100 Calcium 9.1 Total Bilirubin 0.3 AST 28 ALT 42 H Alkaline Phosphatase 61 Total Protein 7.0 Albumin 3.6 Urine Color Yellow Urine Appearance Cloudy H Urine pH 6.0 Ur Specific [place] 1.019 Urine Protein Negative Urine Glucose (UA) Negative Urine Ketones Negative Ur Blood (Man) Negative Urine Nitrate Negative Urine Bilirubin Negative Urine Urobilinogen Negative Leukocyte Esterase Rfl Trace H Urine RBC 0-2 Urine WBC 4-6 H Ur Squamous Epith Cells Many H Urine Bacteria Trace Hyaline Casts 3-4 H Urine Mucus Few H Final Diagnosis (1) GERD (gastroesophageal reflux disease): Qualifiers: Esophagitis presence: esophagitis presence not specified Qualified Code(s): K21.9 - Gastro-esophageal reflux disease without esophagitis Code(s): K21.9 - Gastro-esophageal reflux disease without esophagitis Status: Acute (2) Nausea and vomiting: Code(s): R11.2 - Nausea with vomiting, unspecified Status: Acute (3) Acute hypokalemia: Code(s): E87.6 - Hypokalemia Status: Acute (4) Acute dehydration: Code(s): E86.0 - Dehydration Status: Acute
== END 2021-01-15 09:25 | disposition home or self-care (01) ==
PROVIDERS: Admitting Provider Obstetrics & Gynecology; PCP Physician Assistant; Visit Provider Obstetrics & Gynecology
DX: O21.2 Late vomiting of pregnancy (principal); O99.612 Diseases of the digestive system complicating pregnancy, second trimester; Z3A.23 23 weeks gestation of pregnancy; K21.9 Gastro-esophageal reflux disease without esophagitis; E86.0 Dehydration
CPT/HCPCS: 36415; 80053; 81001; 85025; 96361; 96374; G0378; G0379; J2405; J7120

== ENCOUNTER 2021-04-22 19:38 | Inpatient (IN) | payer OTHER, SELFPAY ==
[2021-04-22] VITALS (10 sets, daily range): BP systolic 133–160; BP diastolic 79–96; PULSE 72–107; TEMP 36.6
[2021-04-22] MEDS: LACTATED RINGERS 1,000 ML 125 ML IV CONT (20:29)
[2021-04-22] MEDS: AMPICILLIN 2 GM/NS 100 ML 2 GM/100 ML BAG IVPB (20:29)
[2021-04-22] MEDS: ONDANSETRON INJ 4 MG/2 ML VIAL IV PUSH (20:30)
[2021-04-22 20:33] LABS: Basophils Percent Auto 0.1 % (0.2-1.2); Hematocrit 35.8 % (37.0-47.0); Hemoglobin 11.9 g/dL (12.0-15.0); Immature Granulocyte Absolute 0.13 K/mm3 (0.00-0.031); Immature Granulocyte Percent A 0.6 % (0-0.5); Lymphocytes Absolute Auto 0.96 K/mm3 (0.9-3.2); Lymphocytes Percent Auto 4.1 % (18.3-44.2); Mean Corpuscular HGB Conc 33.2 g/dl (32-36); Mean Corpuscular Hemoglobin 29.6 pg (26-34); Mean Corpuscular Volume 89.1 fl (80-100); Mean Platelet Volume 11.1 fl (7.4-10.4); Monocytes Absolute Auto 0.4 K/mm3 (0.1-0.6); Monocytes Percent Auto 1.9 % (2.6-8.5); Neutrophils Absolute Auto 21.7 K/mm3 (1.3-6.7); Neutrophils Percent Auto 93.3 % (45.5-73.1); Platelet Count Result 267 k/mm3 (150-375); Red Blood Count 4.02 M/mm3 (4.2-5.4); Red Cell Distribution Width 13.1 % (11.5-14.5); White Blood Count 23.2 K/mm3 (4.5-10.0)
--- NOTE | 2021-04-22 21:07 | WPDOBADMIT ---
Obstetrics - Admit Note Admission Note: record reviewed. No pertinent additions to the history and/or any subsequent changes in the physical findings that are not consistent with the expected course of the were found. Additions to the history and/or subsequent changes in the physical findings follow. None. at 37.5 with SROM. on lexapro. GBS pos. Abx, pitocin if needed. FHT category 1, toco q 3-4
[2021-04-22 21:40] LABS: Amphetamine Screen Urine Negative (Negative); Barbiturate Screen Urine Negative (Negative); Benzodiazepines Screen Urine Negative (Negative); Cannabinoid Screen Urine Positive (Negative); Cocaine Screen Urine Negative (Negative); Methadone Screen Urine Negative (Negative); Opiate Screen Urine Negative (Negative); Phencyclidine Screen Urine Negative (Negative)
[2021-04-22] MEDS: OXYTOCIN 30 UNITS/NS 500 ML 30 UNITS/500 ML BAG IV CONT (23:35)
[2021-04-23] VITALS (110 sets, daily range): BP systolic 88–163; BP diastolic 36–97; PULSE 45–123; RESP 14–16; TEMP 36.2–37.1; O2SAT 98–100; BMI 29.4
[2021-04-23] MEDS: AMPICILLIN 1 GM/NS 50 ML 1 GM/50 ML BAG IVPB (00:28)
--- NOTE | 2021-04-23 00:57 | WPDANESEPPF ---
Anes - Initial Pre Proc Eval Procedure: labor epidural Date/Time: 04/23/21 00:57 Surgeon: Rocio Conroy MD Pre Op Diagnosis: labor pain Pre Op Diagnosis: SROM Patient Data Age: 20 Gender: F Height: Weight: Last Vital Signs Temp 36.6 C 04/22/21 19:50 Pulse 66 04/23/21 00:00 BP 163/81 H 04/23/21 00:00 Allergies Allergy/AdvReac Type Severity Reaction Status Date / Time No Known Allergies Allergy Verified 10/06/20 19:19 Home Medications Medication Instructions Recorded Confirmed Type escitalopram oxalate [Lexapro] 10 mg PO DAILY #0 01/15/21 04/23/21 History ondansetron HCl 8 mg PO Q8H PRN 01/15/21 04/23/21 History [id number] 1 tablet PO DAILY 01/15/21 04/23/21 History Laboratory Tests 04/22/21 04/22/21 04/22/21 20:24 20:24 20:24 WBC 23.2 K/mm3 H K/mm3 (4.5-10.0) RBC 4.02 M/mm3 L M/mm3 (4.2-5.4) Hgb 11.9 g/dL L g/dL (12.0-15.0) Hct 35.8 % L % (37.0-47.0) MCV 89.1 fl fl (80-100) MCH 29.6 pg pg (26-34) MCHC 33.2 g/dl g/dl (32-36) RDW 13.1 % % (11.5-14.5) Plt Count 267 k/mm3 k/mm3 (150-375) MPV 11.1 fl H fl (7.4-10.4) Immature Gran % (Auto) 0.6 % H % (0-0.5) Neut % (Auto) 93.3 % H % (45.5-73.1) Lymph % (Auto) 4.1 % L % (18.3-44.2) Hale % (Auto) 1.9 % L % (2.6-8.5) Eos % (Auto) 0.0 % % (0-4.4) Baso % (Auto) 0.1 % L % (0.2-1.2) Lymph # (Auto) 0.96 K/mm3 K/mm3 (0.9-3.2) Hale # (Auto) 0.4 K/mm3 K/mm3 (0.1-0.6) Eos # (Auto) 0.0 K/mm3 K/mm3 (0-0.3) Baso # (Auto) 0.0 K/mm3 K/mm3 (0.0-0.1) Abs Immat Gran (auto) 0.13 K/mm3 H K/mm3 (0.00-0.031) Absolute Neuts (auto) 21.7 K/mm3 H K/mm3 (1.3-6.7) Absolute Nucleated RBC 0.0 K/mm3 K/mm3 (0.0-0.012) Nucleated RBC % 0.0 % % (0.0-0.2) Urine Opiates Screen Urine Methadone Screen Ur Barbiturates Screen Ur Phencyclidine Scrn Ur Amphetamine Screen U Benzodiazepines Scrn Urine Cocaine Screen U Cannabinoids Screen RPR Pending Blood Type B Positive Antibody Screen Negative 04/22/21 21:10 WBC RBC Hgb Hct MCV MCH MCHC RDW Plt Count MPV Immature Gran % (Auto) Neut % (Auto) Lymph % (Auto) Hale % (Auto) Eos % (Auto) Baso % (Auto) Lymph # (Auto) Hale # (Auto) Eos # (Auto) Baso # (Auto) Abs Immat Gran (auto) Absolute Neuts (auto) Absolute Nucleated RBC Nucleated RBC % Urine Opiates Screen Negative (Negative) Urine Methadone Screen Negative (Negative) Ur Barbiturates Screen Negative (Negative) Ur Phencyclidine Scrn Negative (Negative) Ur Amphetamine Screen Negative (Negative) U Benzodiazepines Scrn Negative (Negative) Urine Cocaine Screen Negative (Negative) U Cannabinoids Screen Positive A (Negative) RPR Blood Type Antibody Screen Patient hx anesthesia problems: none Family hx anesthesia problems: none [facility] Past Medical History Medical History (Updated 10/08/20 @ 00:00 by Seven Torres) Anxiety GERD (gastroesophageal reflux disease) Surgical History Surgical History No significant past surgical history Family History Family History Other Breast cancer Grandparent Cancer of lung Social History Social History Social History: Primary care provider: Jonna HENDERSON Smoking status: Never smoker Alcohol
[2021-04-23] MEDS: LACTATED RINGERS 1,000 ML 125 ML IV CONT ×3 (01:04→03:42)
[2021-04-23] MEDS: PHENYLEPHRINE 1,000 MCG/10 ML SYRINGE 100 MCG IV PUSH (02:05)
--- NOTE | 2021-04-23 02:22 | LDADM ---
This patient, Luciana Lepe, was admitted to Labor/Delivery/Recovery 105 on 04/22/21 at 19:38. Plans for labor, pain management and were discussed with patient. Patient/family oriented to hospital policies and general routines including ID bracelet, bed and alarms, visiting hours, pain management, procedures, bathroom and other care routines, personal items, smoking policy, room service/diet and guest tray routines, infant security routines, and visiting hours. Patient/Family are encouraged to report perceived risks to care and to ask questions if they do not understand what they are told or what they should do. See OBIX for further documentation.
--- NOTE | 2021-04-23 05:15 | PM.OBPRVD ---
OB - Delivery Note Procedure Delivery date: 04/23/21 Procedure: Delivery augmentation: pitocin Delivery monitor: external FHT and external uterine Route of delivery: Laceration Description: Perineal - 1st Degree and Labial (right) Delivery repair: vicryl Specimen: No Quantitative Blood Loss (ml): 300 Anesthesia type: Epidural Disposition: floor Narrative: With adequate expulsive efforts by the mother, the baby's head was delivered OA. The baby's anterior shoulder was delivered under the pubic symphysis without difficulty. The posterior shoulder and the rest of the baby delivered without difficulty. The infant was placed on the mothers chest and suctioned and stimulated. The cord was clamped and cut after 30 seconds. Mother and baby both stable. [place] Baby Date of : 04/23/21 Time of : 04:58 Weeks of gestation at delivery: 37 Infant gender: Female Weight (pounds): 5 Weight (ounces): 9 presentation: vertex Placenta delivery description: Spontaneous cord vessel description: 3 Vessels and Delayed Cord Clamping score one minute: 4 score five minutes: 9
[2021-04-23] MEDS: OXYTOCIN 30 UNITS/NS 500 ML 30 UNITS/500 ML BAG 125 UNITS IV CONT (05:47)
[2021-04-23 07:00] LABS: Rapid Plasma Reagin Non-Reactive (NonReactive)
[2021-04-23] MEDS: IBUPROFEN 600 MG TABLET PO (07:58)
[2021-04-23] MEDS: MULTIVIT/MIN/PREN/FOL AC/IRON TABLET 1 TAB PO (07:58)
[2021-04-23] MEDS: DOCUSATE SODIUM 100 MG CAPSULE PO (07:58)
[2021-04-23] MEDS: ESCITALOPRAM OXALATE 10 MG TABLET PO (07:59)
--- NOTE | 2021-04-23 14:43 | PCCCNOTE ---
Care Coordination. Pt. referred to Care Coordination for mother having positive THC UDS. Met with pt. at bedside and significant other was sleeping. Mother holding baby. She reports this is her first baby. She plans to return home with significant other and her older sisters. She reports having good family support and is setup with WIC in [place]. She has all necessary baby care items, but did take center resource information as well. Pt. reports she uses marijuana to help with her anxiety and appetite. Talked with pt. about watching effects of extended use including nausea/vomiting. Spoke with pt. about her anxiety and keeping in touch with her doctor if signs or symptoms feel out of control especially with post hormones. Spoke with Huyen Golden at [facility] who took pt.'s situation as information only and will make S referral for pt. Intake ID #[id number]. RN reports baby seems to be doing ok and no withdrawals.
--- NOTE | 2021-04-23 16:32 | PC.NURSE ---
Pt has stated feeling nauseous intermittently throughout the day. She leaves the baby in the nursery and takes a wheelchair to go outside for fresh air . She is accompanied by her boyfriend when leaving the unit.
--- NOTE | 2021-04-23 20:10 | PC.NURSE ---
Pt and her boyfriend went outside to get fresh air. Left at the nurses station, upon returning they just went to the room and left the infant at the desk so they could sleep. Educated about smoking exposure to infant, they stated that they understood.
[2021-04-23] MEDS: ACETAMINOPHEN 325 MG TABLET 650 MG PO (23:30)
[2021-04-24 06:06] LABS: Hematocrit 31.9 % (37.0-47.0); Hemoglobin 10.4 g/dL (12.0-15.0)
[2021-04-24 07:20] VITALS: BP 147/74; PULSE 54; RESP 16; TEMP 36.9; O2SAT 100
--- NOTE | 2021-04-24 07:24 | WPDANLDPN2 ---
Anes-Prog Note L&D Date/Time: 04/24/21 07:24 Comfortable throughout: labor and delivery Neuraxial method: epidural Epidural/Spinal procedure site: clean & non-tender Neuro status: Neuro function grossly intact. Cardiovascular status: normal Respiratory status: normal Airway patency: baseline Mental status: baseline Post-Op hydration status: normal Vital Signs: Last Vital Signs Temp 36.5 C 04/23/21 20:00 Pulse 74 04/23/21 20:00 Resp 16 04/23/21 20:00 BP 128/81 04/23/21 20:00 Pulse Ox 98 04/23/21 20:00 Pain score (VAS): 12/01 Post-procedural complaints: none Patient feedback: Patient satisfied with anesthetic care.
--- NOTE | 2021-04-24 07:41 | PM.OBPNVD ---
OB - PN: Subj Subjective Date/time seen: 04/24/21 07:41 Patient comments: no complaints baby status: doing well OB - PN: Obj Data Labs CBC & Chem 7: 04/24/21 05:32 Labs: Laboratory Results - last 24 hr 04/24/21 05:32 Hgb 10.4 L Hct 31.9 L OB - PN A/P Plan day: 1 Plan: routine care Time Spent With Patient Time: Total time spent is greater than 50% in coordination of care (as documented) at patient's floor/unit and/or counseling patient: Time with patient: less than 15 minutes Review of Systems Review of Systems: All systems reviewed & are unremarkable except as noted in HPI and below Exam Narrative: Exam Narrative: Fundus firm and vaginal flow controlled. No lower ext redness, warmth, or edema. Negative homans. Const: General: comfortable Chest: Breast/axilla inspection: normal inspection of the breasts Resp: Effort & Inspection: normal respiratory effort Cardio: Rate: regular rate GI: GI Palp: Yes Soft to palpation Psych: Appearance: grossly normal Affect: normal affect Attitude: cooperative Thought content: Yes Normal thought content present Judgement: Good judgement present (Psych)
[2021-04-24] MEDS: DOCUSATE SODIUM 100 MG CAPSULE PO ×2 (08:47→13:06)
[2021-04-24] MEDS: ONDANSETRON HCL ODT 4 MG TABLET (08:47)
[2021-04-24 12:00] VITALS: BP 109/60; PULSE 62
--- NOTE | 2021-04-24 19:24 | PC.NURSE ---
1700 mother has seemed to feed very much better since a long nap this a.m; she is caring for baby, interacting with baby, and overall seems happier. nurse suggested to FOB that he feed at the next feed; he agreed.
[2021-04-24 20:15] VITALS: BP 108/65; PULSE 71; RESP 16; TEMP 36.9; O2SAT 96
[2021-04-25] MEDS: ESCITALOPRAM OXALATE 10 MG TABLET PO (00:44)
[2021-04-25] MEDS: IBUPROFEN 600 MG TABLET PO ×2 (00:45→10:16)
--- NOTE | 2021-04-25 07:44 | P.PNOB_ITS ---
OB - PN: Subj Subjective Date/time seen: 04/25/21 07:44 Patient comments: no complaints and pain well controlled baby status: doing well [place] feeding status: exclusively bottle feeding OB - PN: Obj Data Labs CBC & Chem 7: 04/24/21 05:32 OB - PN A/P Plan day: 2 Plan: routine care and discharge home Time Spent With Patient Time: Total time spent is greater than 50% in coordination of care (as documented) at patient's floor/unit and/or counseling patient: Time with patient: less than 15 minutes Exam Narrative: Exam Narrative: NAD abdomen soft, nontender, fundus firm below the umbilicus Extremities nontender, 1+ edema
--- NOTE | 2021-04-25 07:47 | PM.OBDSVD ---
DS: Admitting Diagnosis Admitting Diagnosis Admitting Diagnosis: term IUP DS: Discharge Diagnosis Discharge Diagnosis (1) , delivered: Code(s): O80 - Encounter for full-term uncomplicated delivery Status: Acute OB - DS: Summary OB Procedures : Ultrasound OB Procedures Intrapartum: Spontaneous Vag Delivery OB Procedures: : None Peripartum Data Delivery Method: Natural Vaginal Laceration Description: None complications: none Status at Discharge Functional status at discharge: independent ambulation Time Spent with Patient Time attestation: Total time spent providing and/or coordinating discharge services: Exam Narrative: Exam Narrative: NAD abdomen soft, appropriately tender Ext non tender, 1+ edema Discharge Plan Discharge Attending physician on discharge: Ivon Mcclain Discharging Clinician: Ivon Mcclain Anticipated Discharge Date/Time: 04/25/21 11:00 Patient Disposition: Home, Self-Care Activity: may shower and pelvic rest Diet: as tolerated Patient Instructions: Antibiotic Form Stand Alone Forms: General Discharge Information Follow-up/Referrals: Rocio Conroy MD [Physician] - (4 weeks) Discharge Medications: Continued mkjmehlv-fza-Qv-FA 1 mg Tablet 1 tablet PO DAILY RF: 0 escitalopram oxalate [Lexapro] 10 mg Tablet 10 mg PO DAILY Qty: 0 RF: 0 Discontinued ondansetron HCl 8 mg Tablet 8 mg PO Q8H PRN (Reason: Nausea And Vomiting) RF: 0 Date of admission: 04/22/21 19:38 Primary Care Provider: August,Sol Santana Admitting Provider: Rocio Conroy Attending physician on admission: Rocio Conroy Condition: Stable
[2021-04-25 08:05] VITALS: BP 110/65; PULSE 62; RESP 16; TEMP 37; O2SAT 98
[2021-04-25] MEDS: DOCUSATE SODIUM 100 MG CAPSULE PO (10:16)
--- NOTE | 2021-04-25 18:49 | PC.NURSE ---
Patient and FOB viewed the discharge video Mother & Baby Care, The First Two Weeks . Patient was given the opportunity and encouraged to ask questions. Patient verbalized understanding of information shared and has been given the mother/baby guide for home reference.
== END 2021-04-25 13:29 | disposition home or self-care (01) | DRG 560 ==
LOC: ANHLDR 20:48 → ANHOB2 04-25 07:47 → ANHLDR 04-28 11:10 → ANHOB2 04-28 11:10
PROVIDERS: Admitting Provider Obstetrics & Gynecology; PCP Physician Assistant; Visit Provider Obstetrics & Gynecology
DX: O99.824 Streptococcus B carrier state complicating childbirth (principal); O70.0 First degree perineal laceration during delivery; Z3A.37 37 weeks gestation of pregnancy; Z37.0 Single live birth
CPT/HCPCS: 36415; 80307; 85014; 85018; 85025; 86592; 86850; 86900; 86901; A9270; J0290; J2370; J2405; J2590; J2795; J7120

== ENCOUNTER 2022-06-17 14:35 | Emergency (ER) | payer OTHER, SELFPAY ==
[2022-06-17 14:50] VITALS: BP 115/88; PULSE 67; RESP 18; TEMP 36.5; O2SAT 100
[2022-06-17 14:59] LABS: Basophils Absolute Auto 0.1 K/mm3 (0.0-0.1); Basophils Percent Auto 0.3 % (0.2-1.2); Hematocrit 43.6 % (37.0-47.0); Hemoglobin 13.9 g/dL (12.0-15.0); Immature Granulocyte Absolute 0.07 K/mm3 (0.00-0.031); Immature Granulocyte Percent A 0.4 % (0-0.5); Lymphocytes Absolute Auto 0.55 K/mm3 (0.9-3.2); Lymphocytes Percent Auto 2.8 % (18.3-44.2); Mean Corpuscular HGB Conc 31.9 g/dl (32-36); Mean Platelet Volume 10.2 fl (7.4-10.4); Monocytes Absolute Auto 0.5 K/mm3 (0.1-0.6); Monocytes Percent Auto 2.6 % (2.6-8.5); Neutrophils Absolute Auto 18.7 K/mm3 (1.3-6.7); Neutrophils Percent Auto 93.9 % (45.5-73.1); Platelet Count Result 285 k/mm3 (150-375); Red Blood Count 4.79 M/mm3 (4.2-5.4); Red Cell Distribution Width 13.7 % (11.5-14.5); White Blood Count 19.9 K/mm3 (4.5-10.0)
[2022-06-17 15:10] LABS: Alanine Aminotransferase 22 U/L (6-35); Albumin Level 5.2 g/dL (3.5-5.1); Alkaline Phosphatase 60 U/L (38-126); Anion Gap 14 mmol/L (8-16); Aspartate Amino Transferase 24 U/L (14-36); Bilirubin,Total 0.6 mg/dL (0.2-1.3); Blood Urea Nitrogen 12 mg/dL (7-17); Calcium 10.2 mg/dL (8.4-10.2); Carbon Dioxide 23 mmol/L (22-30); Chloride 102 mmol/L (98-107); Estimated CRCL calculation 90 ml/min; Estimated Glomerular Filt Rate > 60; Glucose 163 mg/dL (65-110); Lipase 26 U/L (23-300); Potassium 4.2 mmol/L (3.4-5.0); Sodium 139 mmol/L (137-145)
--- NOTE | 2022-06-17 15:16 | ED.NAVMDI ---
HPI - Nausea/Vomiting/Diarrhea General Chief complaint: Nausea/Vomiting/Diarrhea Stated complaint: vomiting Time Seen by Provider: 06/17/22 14:43 Related Data Home Medications Medication Instructions Recorded Confirmed escitalopram oxalate 10 mg tablet 10 mg PO DAILY ##0 01/15/21 04/23/21 (Lexapro) [id number] 1 mg 1 tablet PO DAILY 01/15/21 04/23/21 tablet Allergies Allergy/AdvReac Type Severity Reaction Status Date / Time No Known Allergies Allergy Verified 06/17/22 14:53 [facility] Past Medical History Medical History (Updated 06/18/22 @ 00:00 by Seven Torres) Anxiety GERD (gastroesophageal reflux disease) Surgical History Surgical History No significant past surgical history Family History Family History Other Breast cancer Grandparent Cancer of lung Social History Social History Social History: Primary care provider: Jonna HENDERSON Smoking status: Never smoker Alcohol intake: current Alcohol use details: She drinks an alcoholic beverage once every couple of months. Substance use: current Substance use type: marijuana Other substance usage details: marijuana help with appetite 2-3 week Additional living arrangements comments: She lives with her boyfriend and her 2 older sisters. Her younger brother and sister live with other family members. She reports that her sisters are the family members that watch out for her. Additional occupation/education comments: She works at [employer]. She wants to start going to school and is interested in studying either nursing or law. Gender identity (if verbalized by the patient): Female Sexual Orientation (if Verbalized by the Patient): Straight or Heterosexual Spiritual care concerns: Yes Course Vital Signs Vital signs: Vital Signs Temperature 36.5 C 06/17/22 14:50 Pulse Rate 67 06/17/22 14:50 Respiratory Rate 18 06/17/22 14:50 Blood Pressure 115/88 06/17/22 14:50 Pulse Oximetry 100 06/17/22 14:50 Oxygen Delivery Room Air 06/17/22 14:50 Temperature 36.5 C 07/27/22 14:50 Pulse Rate 74 06/17/22 18:17 Respiratory Rate 20 06/17/22 18:17 Blood Pressure 132/74 06/17/22 18:17 Pulse Oximetry 100 06/17/22 18:17 Oxygen Delivery Room Air 06/17/22 14:50 MDM - Nausea/Vomiting/Diarrhea Lab Data Result diagrams: 06/17/22 14:55 06/17/22 14:55 Labs: Lab Results 06/17/22 06/17/22 06/17/22 Range/Units 14:55 14:55 16:06 WBC 19.9 H (4.5-10.0) K/mm3 RBC 4.79 (4.2-5.4) M/mm3 Hgb 13.9 D (12.0-15.0) g/dL Hct 43.6 (37.0-47.0) % MCV 91.0 (80-100) fl MCH 29.0 (26-34) pg MCHC 31.9 L (32-36) g/dl RDW 13.7 (11.5-14.5) % Plt Count 285 (150-375) k/mm3 MPV 10.2 (7.4-10.4) fl Immature Gran % (Auto) 0.4 (0-0.5) % Neut % (Auto) 93.9 H (45.5-73.1) % Lymph % (Auto) 2.8 L (18.3-44.2) % [place] % (Auto) 2.6 (2.6-8.5) % Eos % (Auto) 0.0 (0-4.4) % Baso % (Auto) 0.3 (0.2-1.2) % Lymph # (Auto) 0.55 L (0.9-3.2) K/mm3 [place] # (Auto) 0.5 (0.1-0.6) K/mm3 Eos # (Auto) 0.0 (0-0.3) K/mm3 Baso # (Auto) 0.1 (0.0-0.1) K/mm3 Abs Immat Gran (auto) 0.07 H (0.00-0.031) K/mm3 Absolute Neuts (auto) 18.7 H (1.3-6.7) K/mm3 Absolute Nucleated RBC 0.0 (0.0-0.012) K/mm3 Nucleated RBC % 0.0 (0.0-0.2) % Sodium 139 (137-145) mmol/L Potassium 4.2 (3.4-5.0) mmol/L Chloride 102 (98-107) mmol/L Carbon Dioxide 23 (22-30) mmol/L Anion Gap 14 (8-16) mmol/L BUN 12 D (7-17) mg/dL Creatinine 0.60 L (0.7-1.0) mg/dL Estim Creat Clear Calc 90 ml/min Estimated GFR > 60 (59 - ) Glucose 163 H (65-110) mg/dL Hemoglobin A1c 5.0 (<5.7) % Lactic Acid (0.7
[2022-06-17] MEDS: SODIUM CHLORIDE 0.9% IV 1,000 ML 999 ML IV CONT ×2 (15:35→17:10)
[2022-06-17] MEDS: PANTOPRAZOLE SODIUM IV 40 MG VIAL IV PUSH (15:35)
[2022-06-17] MEDS: DICYCLOMINE HCL INJ 20 MG/2 ML VIAL IM (15:35)
[2022-06-17] MEDS: ONDANSETRON INJ 4 MG/2 ML VIAL IV PUSH (15:35)
[2022-06-17] MEDS: diphenhydrAMINE HCl INJ 50 MG/ML VIAL 25 MG IV PUSH (16:41)
[2022-06-17] MEDS: METOCLOPRAMIDE HCL INJ 10 MG/2 ML VIAL IV PUSH (16:42)
[2022-06-17 16:51] LABS: Appearance Urine Clear (Clear); Bilirubin Urine 1+ (Negative); Color Urine Yellow (Yellow); Glucose Urine UA Negative (Negative); Ketones Urine 3+ mg/dL (Negative); Leukocyte Esterase Ur Trace LEU/UL (Negative); Nitrate Urine Negative (Negative); Protein Urine 2+ mg/dL (Negative); Specific Grav Ur 1.025 (1.001-1.035); Urobilinogen Urine 0.2 mg/dL (<2.0)
[2022-06-17 16:55] LABS: Add Urine Microscopic? YES; Blood Urine Trace-Intact (Negative)
[2022-06-17 16:56] LABS: Mucus Urine Heavy /lpf; Squamous Epithelial Cell Urine Few /hpf (Few)
[2022-06-17 18:17] VITALS: BP 132/74; PULSE 74; RESP 20; O2SAT 100
== END 2022-06-17 18:17 | disposition home or self-care (01) ==
PROVIDERS: Emergency Provider Nurse Practitioner Family; PCP Physician Assistant
DX: A05.9 Bacterial foodborne intoxication, unspecified (principal); N39.0 Urinary tract infection, site not specified; K21.9 Gastro-esophageal reflux disease without esophagitis; F41.9 Anxiety disorder, unspecified
CPT/HCPCS: 36415; 80053; 81001; 81025; 83036; 83605; 83690; 85025; 87086; 87088; 96361; 96372; 96374; 96375; 99284; C9113; J0500; J1200; J2405; J2765; J7030

== ENCOUNTER 2022-09-08 13:23 | Outpatient (CLI) | payer OTHER, SELFPAY ==
--- NOTE | ~2022-09-08 | US_ITS ---
US breast BI complete INDICATION: Palpable bilateral breast lumps TECHNIQUE: Dedicated complete bilateral breast ultrasound including all 4 quadrants in the subareolar locations COMPARISON: No prior studies for comparison. FINDINGS: The breasts are composed of normal heterogeneous echotexture without focal solid or cystic mass. IMPRESSION: 1: Normal bilateral breast ultrasound. BI-RADS CATEGORY 1 - NEGATIVE Reviewed, dictated and finalized at location A.
== END 2022-09-08 13:24 | disposition home or self-care (01) ==
LOC: ANHIMG 13:30
PROVIDERS: PCP Physician Assistant; Visit Provider Nurse Practitioner
DX: N63.0 Unspecified lump in unspecified breast (principal)
CPT/HCPCS: 76641

== ENCOUNTER 2023-09-28 18:59 | Emergency (ER) | payer OTHER, SELFPAY ==
[2023-09-28 19:01] VITALS: BP 133/90; PULSE 83; RESP 18; TEMP 36.4; O2SAT 97
[2023-09-28 19:51] LABS: Appearance Urine Cloudy (Clear); Bacteria Urine 3+ /hpf; Bilirubin Urine 2+ (Negative); Color Urine Dark Yellow (Yellow); Glucose Urine UA Negative (Negative); Ketones Urine Trace mg/dL (Negative); Leukocyte Esterase Ur Trace LEU/UL (Negative); Mucus Urine Present /lpf; Need Manual Microscopic Reviewed; Nitrate Urine Negative (Negative); Non Pathogenic Casts >20; Protein Urine 2+ mg/dL (Negative); Specific Grav Ur 1.027 (1.001-1.035); Squamous Epithelial Cell Urine Many /hpf (Few)
[2023-09-28 19:52] LABS: Add Urine Microscopic? YES
[2023-09-28 21:18] VITALS: BP 127/79; PULSE 62
[2023-09-28 21:18] LABS: Basophils Absolute Auto 0.1 K/mm3 (0.0-0.1); Basophils Percent Auto 0.3 % (0.2-1.2); Eosinophils Percent Auto 0.2 % (0-4.4); Hematocrit 51.9 % (37.0-47.0); Hemoglobin 17.4 g/dL (12.0-15.0); Immature Granulocyte Absolute 0.06 K/mm3 (0.00-0.031); Immature Granulocyte Percent A 0.3 % (0-0.5); Lymphocytes Absolute Auto 3.35 K/mm3 (0.9-3.2); Lymphocytes Percent Auto 17.8 % (18.3-44.2); Mean Corpuscular HGB Conc 33.5 g/dl (32-36); Mean Corpuscular Hemoglobin 29.8 pg (26-34); Mean Platelet Volume 9.7 fl (7.4-10.4); Monocytes Percent Auto 10.6 % (2.6-8.5); Neutrophils Absolute Auto 13.4 K/mm3 (1.3-6.7); Neutrophils Percent Auto 70.8 % (45.5-73.1); Platelet Count Result 376 k/mm3 (150-375); Red Blood Count 5.83 M/mm3 (4.2-5.4); White Blood Count 18.9 K/mm3 (4.5-10.0)
[2023-09-28 21:19] VITALS: BP 127/80; PULSE 87
[2023-09-28 21:20] VITALS: PULSE 75
--- NOTE | 2023-09-28 21:28 | ED.GENADULT ---
HPI - General Adult General Chief complaint: Nausea/Vomiting/Diarrhea Stated complaint: nausea, vomiting Time Seen by Provider: 09/28/23 21:14 History of Present Illness HPI narrative: This is a 22-year-old female presenting ED with chief complaint of nausea and vomiting. It has been ongoing for 4 days. Is improved with hot showers. She is a daily marijuana user. this last occurred about 5 months ago. Patient denies fever chills chest pain abdominal pain or urinary symptoms. Related Data Home Medications Medication Instructions Recorded Confirmed escitalopram oxalate 10 mg tablet 10 mg PO DAILY ##0 01/15/21 04/23/21 (Lexapro) [id number] 1 mg 1 tablet PO DAILY 01/15/21 04/23/21 tablet Allergies Allergy/AdvReac Type Severity Reaction Status Date / Time No Known Allergies Allergy Verified 09/28/23 19:00 [facility] Past Medical History Medical History (Updated 09/28/23 @ 22:16 by Nick Avery MD) Anxiety GERD (gastroesophageal reflux disease) Surgical History Surgical History No significant past surgical history Family History Family History Other Breast cancer Grandparent Cancer of lung Social History Social History Social History: Primary care provider: Jonna HENDERSON Smoking status: Never smoker Alcohol intake: current Alcohol use details: She drinks an alcoholic beverage once every couple of months. Substance use: current Substance use type: marijuana Other substance usage details: marijuana help with appetite 2-3 week Living arrangements: with family Additional living arrangements comments: She lives with her boyfriend and her 2 older sisters. Her younger brother and sister live with other family members. She reports that her sisters are the family members that watch out for her. Occupation/Education: occupation Additional occupation/education comments: She works at [employer]. She wants to start going to school and is interested in studying either nursing or law. Gender identity (if verbalized by the patient): Female Sexual Orientation (if Verbalized by the Patient): Straight or Heterosexual Spiritual care concerns: Yes Exam Narrative: APPEARANCE: No apparent distress. Head: atraumatic. EYES: EOMI, NOSE: Atraumatic NECK: Trachea midline RESPIRATORY: No increased rate of breathing, CTAB CARDIOVASCULAR: RRR, no peripheral edema ABDOMINAL: Non-distended, soft nontender no guarding or rebound, CVA tenderness MUSCULOSKELETAl: No obvious deformities NEURO: Alert. Moving 4/4 extremities SKIN:: Warm, dry. Normal color PSYCHIATRIC: Anxious Course Vital Signs Vital signs: Vital Signs Temperature 97.5 F L 09/28/23 19:01 Pulse Rate 83 09/28/23 19:01 Respiratory Rate 18 09/28/23 19:01 Blood Pressure 133/90 09/28/23 19:01 Pulse Oximetry 97 09/28/23 19:01 Oxygen Delivery Room Air 09/28/23 19:01 Temperature 97.5 F L 09/28/23 19:01 Pulse Rate 75 09/28/23 21:20 Respiratory Rate 18 09/28/23 19:01 Blood Pressure 127/80 09/28/23 21:19 Pulse Oximetry 97 09/28/23 19:01 Oxygen Delivery Room Air 09/28/23 19:01 Medical Decision Making [facility] Narrative Medical decision making narrative: -Course: 22-year-old female presenting with 4 days of nausea and vomiting. Patient has had symptoms like this in the past, still smoking marijuana and finds that her symptoms improved with hot showers. Given Haldol and IV fluids with improvement in her symptoms. The patient felt so much better that she did not want wait for the rest of her results to return and asked to be discharged. Patient discharged with instructions to quit smoking marijuana. -DDX includes but is not limited to: cannabinoid hyperemesis, gastroenteritis, viral syndrome, -
[2023-09-28] MEDS: SODIUM CHLORIDE 0.9% IV 2,000 ML 999 ML IV CONT (21:38)
[2023-09-28] MEDS: FAMOTIDINE 20 MG/2 ML VIAL IV PUSH (21:39)
[2023-09-28] MEDS: HALOPERIDOL LACTATE 5 MG/ML VIAL IM (21:39)
[2023-09-28 22:14] LABS: Amphetamine Screen Urine Negative (Negative); Barbiturate Screen Urine Negative (Negative); Benzodiazepines Screen Urine Negative (Negative); Cannabinoid Screen Urine Positive (Negative); Cocaine Screen Urine Negative (Negative); Methadone Screen Urine Negative (Negative); Opiate Screen Urine Negative (Negative); Phencyclidine Screen Urine Negative (Negative)
[2023-09-28 22:24] LABS: Alanine Aminotransferase 23 U/L (6-35); Alkaline Phosphatase 95 U/L (38-126); Anion Gap 13 mmol/L (8-16); Aspartate Amino Transferase 25 U/L (14-36); Bilirubin,Total 1.1 mg/dL (0.2-1.3); Blood Urea Nitrogen 18 mg/dL (7-17); Calcium 9.7 mg/dL (8.4-10.2); Carbon Dioxide 27 mmol/L (22-30); Chloride 93 mmol/L (98-107); Estimated CRCL calculation 81 ml/min; Estimated Glomerular Filt Rate > 60; Glucose 108 mg/dL (65-110); Lipase 29 U/L (23-300); Potassium 2.7 mmol/L (3.4-5.0); Sodium 133 mmol/L (137-145)
[2023-09-28] MEDS: POTASSIUM CHLORIDE 20 MEQ ER TABLET 40 MEQ PO (22:29)
[2023-09-28 22:35] VITALS: BP 101/88; PULSE 80; RESP 18; O2SAT 97
== END 2023-09-28 22:36 | disposition home or self-care (01) ==
LOC: ANHED 21:54
PROVIDERS: Emergency Provider Emergency Medicine; PCP Physician Assistant
DX: R11.10 Vomiting, unspecified (principal); F12.90 Cannabis use, unspecified, uncomplicated
CPT/HCPCS: 36415; 80053; 80307; 81001; 81025; 83690; 85025; 87086; 87088; 96361; 96372; 96374; 99284; A9270; J1630; J7030

== ENCOUNTER 2023-11-02 17:01 | Emergency (ER) | payer OTHER, SELFPAY ==
[2023-11-02 17:03] VITALS: BP 118/71; PULSE 88; RESP 20; TEMP 36.6; O2SAT 98
--- NOTE | 2023-11-02 17:57 | ED.NAVMDI ---
HPI - Nausea/Vomiting/Diarrhea General Chief complaint: Nausea/Vomiting/Diarrhea <JENNY Penny Last Filed: 11/03/23 09:27> Stated complaint: vomiting <JENNY Penny Last Filed: 11/03/23 09:27> Time Seen by Provider: 11/02/23 19:27 <JENNY Penny Last Filed: 11/03/23 09:27> Source: patient <JENNY Penny Last Filed: 11/03/23 09:27> Mode of arrival: ambulatory <JENNY Penny Last Filed: 11/03/23 09:27> Limitations: no limitations <JENNY Penny Filed: 11/03/23 09:27> History of Present Illness HPI Narrative: This is a 23 year old female that presents to the ER for nausea and vomiting. Reports she has not been able to keep much down which prompted her to be seen. Reports some diarrhea. Does report similar symptoms in family members. Denies fevers. <JENNY Penny Last Filed: 11/03/23 09:27> Related Data Home medications: Home Medications Medication Instructions Recorded Confirmed escitalopram oxalate 10 mg tablet 10 mg PO DAILY ##0 01/15/21 04/23/21 (Lexapro) [id number] 1 mg 1 tablet PO DAILY 01/15/21 04/23/21 tablet <JENNY Penny Last Filed: 11/03/23 09:27> Allergies/Adverse reactions: Allergies Allergy/AdvReac Type Severity Reaction Status Date / Time No Known Allergies Allergy Verified 09/28/23 19:00 <JENNY Penny Last Filed: 11/03/23 09:27> Review of Systems Review of Systems: CONSTITUTIONAL: Denies fever GASTROINTESTINAL: Reports abdominal pain, nausea, vomiting, and diarrhea. GENITOURINARY: Denies dysuria <JENNY Penny Last Filed: 11/03/23 09:27> All systems reviewed & are unremarkable except as noted in HPI and below <JENNY Penny Filed: 11/03/23 09:27> [facility] Past Medical History Medical History: Medical History (Updated 11/03/23 @ 00:00 by Seven Torres) Anxiety GERD (gastroesophageal reflux disease) <Priti Raya PA-C - Last Filed: 11/03/23 09:27> Surgical History Surgical History: Surgical History No significant past surgical history <Priti Raya PA-C - Last Filed: 11/03/23 09:27> Family History Family History: Family History Other Breast cancer Grandparent Cancer of lung <Priti Raya PA-C - Last Filed: 11/03/23 09:27> Social History Social History: Social History Social History: Primary care provider: Jonna HENDERSON Smoking status: Never smoker Alcohol intake: current Alcohol use details: She drinks an alcoholic beverage once every couple of months. Substance use: current Substance use type: marijuana Other substance usage details: marijuana help with appetite 2-3 week Living arrangements: with family Additional living arrangements comments: She lives with her boyfriend and her 2 older sisters. Her younger brother and sister live with other family members. She reports that her sisters are the family members that watch out for her. Occupation/Education: occupation Additional occupation/education comments: She works at [employer]. She wants to start going to school and is interested in studying either nursing or law. Gender identity (if verbalized by the patient): Female Sexual Orientation (if Verbalized by the Patient): Straight or Heterosexual Spiritual care concerns: Yes <Priti Raya PA-C - Last Filed: 11/03/23 09:27> Exam Narrative: GENERAL: Well-appearing, well-nourished, and in no acute distress. HEAD: Normocephalic, atraumatic. EYES: EOMI. CHEST: Clear to auscultation. No respiratory distress. No wheezes rales or rhonchi HEART: Regular rate and rhythm. No murmur heard. Normal peripheral pulses. ABDOMEN: Soft, nontender, nondisten
[2023-11-02 18:03] LABS: Appearance Urine Cloudy (Clear); Bacteria Urine 1+ /hpf; Bilirubin Urine Negative (Negative); Blood Urine 2+ (Negative); Color Urine Yellow (Yellow); Glucose Urine UA Negative (Negative); Ketones Urine 2+ mg/dL (Negative); Leukocyte Esterase Ur 1+ LEU/UL (Negative); Nitrate Urine Negative (Negative); Non Pathogenic Casts 0-2; Protein Urine Trace mg/dL (Negative); Specific Grav Ur 1.027 (1.001-1.035); Squamous Epithelial Cell Urine Moderate /hpf (Few); Urobilinogen Urine 0.2 mg/dL (<2.0); WBC Urine 21-50 /hpf
[2023-11-02 18:08] LABS: Add Urine Microscopic? YES
[2023-11-02] MEDS: ONDANSETRON INJ 4 MG/2 ML VIAL IV PUSH (18:08)
[2023-11-02] MEDS: FAMOTIDINE 20 MG/2 ML VIAL IV PUSH (18:08)
[2023-11-02 18:15] LABS: Basophils Percent Auto 0.2 % (0.2-1.2); Eosinophils Percent Auto 0.1 % (0-4.4); Hematocrit 47.3 % (37.0-47.0); Hemoglobin 15.6 g/dL (12.0-15.0); Immature Granulocyte Absolute 0.03 K/mm3 (0.00-0.031); Immature Granulocyte Percent A 0.3 % (0-0.5); Lymphocytes Absolute Auto 2.69 K/mm3 (0.9-3.2); Lymphocytes Percent Auto 25.7 % (18.3-44.2); Mean Corpuscular Hemoglobin 29.3 pg (26-34); Mean Corpuscular Volume 88.7 fl (80-100); Mean Platelet Volume 9.9 fl (7.4-10.4); Monocytes Absolute Auto 1.3 K/mm3 (0.1-0.6); Monocytes Percent Auto 11.9 % (2.6-8.5); Neutrophils Absolute Auto 6.5 K/mm3 (1.3-6.7); Neutrophils Percent Auto 61.8 % (45.5-73.1); Platelet Count Result 362 k/mm3 (150-375); Red Blood Count 5.33 M/mm3 (4.2-5.4); Red Cell Distribution Width 12.7 % (11.5-14.5); White Blood Count 10.5 K/mm3 (4.5-10.0)
[2023-11-02 18:25] LABS: Alanine Aminotransferase 28 U/L (6-35); Albumin Level 5.1 g/dL (3.5-5.1); Alkaline Phosphatase 78 U/L (38-126); Anion Gap 14 mmol/L (8-16); Aspartate Amino Transferase 34 U/L (14-36); Bilirubin,Total 0.7 mg/dL (0.2-1.3); Blood Urea Nitrogen 16 mg/dL (7-17); Carbon Dioxide 28 mmol/L (22-30); Chloride 94 mmol/L (98-107); Estimated CRCL calculation 91 ml/min; Estimated Glomerular Filt Rate > 60; Glucose 96 mg/dL (65-110); Lipase 35 U/L (23-300); Potassium 3.2 mmol/L (3.4-5.0); Sodium 136 mmol/L (137-145)
[2023-11-02 18:51] LABS: Influenza A QL RT-PCR Negative (Negative); Influenza B QL RT-PCR Negative (Negative); SARS-CoV-2 RNA PCR Positive (Negative)
[2023-11-02 19:20] LABS: Magnesium 2.4 mg/dL (1.6-2.3)
[2023-11-02] MEDS: POTASSIUM CHLORIDE 20 MEQ ER TABLET 40 MEQ PO (20:24)
[2023-11-02] MEDS: ONDANSETRON HCL ODT 4 MG TABLET PO (21:49)
== END 2023-11-02 21:50 | disposition home or self-care (01) ==
PROVIDERS: Physician Assistant; Emergency Provider Emergency Medicine; PCP Physician Assistant
DX: U07.1 COVID-19 (principal); E87.6 Hypokalemia; R11.2 Nausea with vomiting, unspecified; R19.7 Diarrhea, unspecified; F41.9 Anxiety disorder, unspecified; K21.9 Gastro-esophageal reflux disease without esophagitis
CPT/HCPCS: 36415; 80053; 81001; 81025; 83690; 83735; 85025; 87086; 87636; 96374; 96375; 99284; A9270; J2405

== ENCOUNTER 2023-12-25 12:20 | Emergency (ER) | payer OTHER, SELFPAY ==
[2023-12-25 12:22] VITALS: BP 172/96; PULSE 111; RESP 18; TEMP 36.3; O2SAT 98
--- NOTE | 2023-12-25 12:45 | ED.PSYCH ---
HPI - Psych General Chief Complaint: Psychiatric Symptoms Stated Complaint: mental evaluation Time Seen by Provider: 12/25/23 12:45 Source: patient and family Mode of arrival: ambulatory Limitations: no limitations History of Present Illness HPI Narrative: 23-year-old female a history of anxiety, GERD, schizophrenia has been off her medications and was recently restarted on Zyprexa and bupropion. Her sister brings her to the ER with -- agitation/anxiety /restlessness -- patient talks to herself possibly has auditory hallucinations -- patient denies suicidal or homicidal ideation Onset (ago): day(s) Duration: constant History of same: Yes Relieving factors: none Exacerbating factors: none Context: other ( patient uses marijuana) Associated psychiatric symptoms: auditory hallucinations Associated symptoms: denies other symptoms Treatments prior to arrival: other ( recently started on Zyprexa and bupropion) Related Data Home Medications Medication Instructions Recorded Confirmed bupropion HCl 150 mg 24 hr tablet, 150 mg PO DAILY 12/25/23 12/25/23 extended release bupropion HCl 300 mg 24 hr tablet, 300 mg PO DAILY 12/25/23 12/25/23 extended release buspirone 5 mg tablet 5 mg PO DAILY 12/25/23 12/25/23 olanzapine 5 mg tablet 5 mg PO HS 12/25/23 12/25/23 Allergies Allergy/AdvReac Type Severity Reaction Status Date / Time No Known Allergies Allergy Verified 12/25/23 12:41 Review of Systems Review of Systems: All systems reviewed & are unremarkable except as noted in HPI and below Constitutional: Constitutional: Reports as per HPI and Reports no additional constitutional complaints Eyes: Eyes: Reports as per HPI and Reports no additional eye complaints ENT: Reports system reviewed and no additional complaints, except as documented and Reports as per HPI Cardiovascular: Cardiovascular: Reports as per HPI and Reports no additional cardiovascular complaints Respiratory: Respiratory: Reports as per HPI and Reports no additional respiratory complaints Gastrointestinal: Gastrointestinal: Reports as per HPI and Reports no additional gastrointestinal complaints Genitourinary: Genitourinary: Reports no additional female genitourinary complaints Musculoskeletal: Musculoskeletal: Reports no additional musculoskeletal complaints and Reports as per HPI Integumentary/Breasts: Skin/Breast: Reports system reviewed and no additional complaints, except as docu and Reports as per HPI Neurologic: Reports system reviewed and no additional complaints, except as documented and Reports as per HPI Psychiatric: Psychiatric: Reports no additional psychiatric complaints and Reports as per HPI Endocrine: Endocrine: Reports no additional endocrine complaints and Reports as per HPI Hematologic/Lymphatic: Hematologic/Lymphatic: Reports no additional hematologic/lymphatic complaints and Reports as per HPI Allergic/Immunologic: Allergic/Immunologic: Reports no additional allergic/immunologic complaints and Reports as per HPI [facility] Past Medical History Medical History (Updated 12/25/23 @ 15:09 by Jabari Murdock MD) Anxiety GERD (gastroesophageal reflux disease) Surgical History Surgical History No significant past surgical history Family History Family History Other Breast cancer Grandparent Cancer of lung Social History Social History Social History: Primary care provider: Jonna HENDERSON Smoking status: Never smoker Alcohol intake: current Alcohol use details: She drinks an alcoholic beverage once every couple of months. Substance use: current Substance use type: marijuana Other substance usage details: marijuana help with appetite 2-3 week Living arrangements: with family Additional living arrangements comments: She lives with
--- NOTE | 2023-12-25 13:11 | PC.NURSE ---
Patient uncooperative with staff for EKG, ERP Is aware. will try later.
[2023-12-25 13:51] LABS: Basophils Absolute Auto 0.06 K/mm3 (0.00-0.10); Basophils Percent Auto 0.5 % (0.0-1.0); Hematocrit 42.8 % (35.0-49.0); Hemoglobin 13.8 g/dL (12.0-15.0); Immature Granulocyte Absolute 0.04 K/mm3 (0.00-0.00); Immature Granulocyte Percent A 0.3 % (0.0-0.0); Lymphocytes Absolute Auto 1.99 K/mm3 (1.10-4.50); Lymphocytes Percent Auto 16.3 % (18.0-42.0); Mean Corpuscular HGB Conc 32.2 g/dL (32.0-36.0); Mean Corpuscular Hemoglobin 29.6 pg (27.0-31.0); Mean Corpuscular Volume 91.8 fL (78.0-102.0); Mean Platelet Volume 9.9 fl (9.2-11.8); Monocytes Absolute Auto 0.59 K/mm3 (0.10-0.90); Monocytes Percent Auto 4.8 % (2.0-11.0); Neutrophils Absolute Auto 9.6 K/mm3 (1.7-7.2); Neutrophils Percent Auto 78.1 % (50.0-70.0); Platelet Count Result 312 K/mm3 (150-420); Red Blood Count 4.66 M/mm3 (4.20-5.40); White Blood Count 12.2 K/mm3 (4.8-10.8)
[2023-12-25] MEDS: HALOPERIDOL LACTATE 5 MG/ML VIAL IM (13:58)
[2023-12-25 14:10] LABS: SARS-CoV-2 RNA PCR Negative (Negative)
--- NOTE | 2023-12-25 14:10 | PC.NURSE ---
[facility] at beside. Patient still uncooperative with staff for EKG and urine sample. ERP is aware.
[2023-12-25 14:11] LABS: Influenza A QL RT-PCR Negative (Negative); Influenza B QL RT-PCR Negative (Negative); RSV RNA, RT-PCR Negative (Negative)
[2023-12-25 14:27] LABS: Alanine Aminotransferase 23 U/L (14-59); Albumin Level 4.7 g/dL (3.4-5.0); Alkaline Phosphatase 60 U/L (46-116); Anion Gap 18 mmol/L (8-16); Aspartate Amino Transferase 16 U/L (15-37); Bilirubin,Total 0.8 mg/dL (0.00-1.00); Blood Urea Nitrogen 8 mg/dL (7-18); Calcium 9.5 mg/dL (8.5-10.1); Carbon Dioxide 22 mmol/L (21-32); Chloride 100 mmol/L (98-108); Estimated Glomerular Filt Rate > 60; Glucose 108 mg/dL (70-99); Osmolality Calculated 289 mOsm/kg (285-295); Potassium 3.4 mmol/L (3.5-5.1); Salicylate 0.3 mg/dL (2.8-20.0); Sodium 140 mmol/L (136-145); Total Protein 8.1 g/dL (6.4-8.2)
[2023-12-25 14:28] LABS: Acetaminophen < 2 ug/mL (10-30); Ethanol < 3 mg/dL (0-6)
[2023-12-25 14:32] LABS: Thyroid Stimulating Hormone 0.46 uIU/mL (0.36-3.74)
--- NOTE | 2023-12-25 15:00 | PC.NURSE ---
[facility] staff is deflecting patient home, ERP notified. Patient still uncooperative with staff for EKG and UA. ERP notified and states we no longer need. patient will be discharged.
[2023-12-25 15:20] VITALS: BP 152/78; PULSE 98; RESP 17; TEMP 36.6; O2SAT 99
== END 2023-12-25 15:20 | disposition home or self-care (01) ==
PROVIDERS: Emergency Provider Internal Medicine Critical Care Medicine
DX: F29 Unspecified psychosis not due to a substance or known physiological condition (principal); F20.9 Schizophrenia, unspecified; Z79.899 Other long term (current) drug therapy; Z20.822 Contact with and (suspected) exposure to COVID-19
CPT/HCPCS: 36415; 80053; 80307; 84443; 85025; 87637; 96372; 99284; J1630

== ENCOUNTER 2024-04-21 20:18 | Emergency (ER) | payer OTHER, SELFPAY ==
[2024-04-21 20:49] VITALS: BP 111/66; PULSE 90; RESP 18; TEMP 36.9; O2SAT 98
--- NOTE | 2024-04-21 20:54 | ED.GENADULT ---
HPI - General Adult General Chief complaint: Nausea/Vomiting/Diarrhea Stated complaint: vomiting blood Time Seen by Provider: 04/21/24 20:31 Source: patient Mode of arrival: ambulatory Limitations: no limitations History of Present Illness HPI narrative: This is a 23-year-old female who presents to the ED with chief complaint of nausea, vomiting onset x2 days. Patient reports this is been an intermittent issue for several months. She states that sometimes spicy foods will trigger this. She also reports alcohol is triggered this in the past. She is concerned because she saw some dark brown in the vomit today and was concerned for possible bleeding. Denies abdominal pain, chest pain, shortness of breath, cough, hemoptysis, rectal bleeding, diarrhea, constipation. She is in the process of getting an appointment for GI evaluation for recurrent nausea and vomiting. Related Data Home Medications Medication Instructions Recorded Confirmed bupropion HCl 150 mg 24 hr tablet, 150 mg PO DAILY 12/25/23 12/25/23 extended release bupropion HCl 300 mg 24 hr tablet, 300 mg PO DAILY 12/25/23 12/25/23 extended release buspirone 5 mg tablet 5 mg PO DAILY 12/25/23 12/25/23 olanzapine 5 mg tablet 5 mg PO HS 12/25/23 12/25/23 Allergies Allergy/AdvReac Type Severity Reaction Status Date / Time No Known Allergies Allergy Verified 12/25/23 12:41 Review of Systems Review of Systems: All systems as dictated in [facility] Past Medical History Medical History (Updated 04/21/24 @ 23:15 by Koby Ramirez PA-C) Anxiety GERD (gastroesophageal reflux disease) Surgical History Surgical History No significant past surgical history Family History Family History Other Breast cancer Grandparent Cancer of lung Social History Social History Social History: Primary care provider: Jonna HENDERSON Smoking status: Never smoker Alcohol intake: current Alcohol use details: She drinks an alcoholic beverage once every couple of months. Substance use: current Substance use type: prescription drug Other substance usage details: marijuana help with appetite 2-3 week Living arrangements: with family Additional living arrangements comments: She lives with her boyfriend and her 2 older sisters. Her younger brother and sister live with other family members. She reports that her sisters are the family members that watch out for her. Occupation/Education: occupation Additional occupation/education comments: She works at [employer]. She wants to start going to school and is interested in studying either nursing or law. Gender identity (if verbalized by the patient): Female Sexual Orientation (if Verbalized by the Patient): Straight or Heterosexual Spiritual care concerns: Yes Exam Narrative: GENERAL: Well-appearing, well-nourished, and in no acute distress. HEAD: Normocephalic, atraumatic. EYES: PERRLA and EOMI. ENT: Nares clear, no rhinorrhea or epistaxis. Mucous membranes moist. Oropharynx without tonsillar hypertrophy exudate or other lesions. Oropharynx is clear of any active bleeding or dry blood. No lesions. NECK: Supple. No adenopathy or masses. CHEST: No respiratory distress. Clear to auscultation. No wheezes rales or rhonchi HEART: Regular rate and rhythm. No murmur heard. Normal peripheral pulses. ABDOMEN: Soft, nontender, nondistended, normal active bowel sounds. MSK: Normal range of motion. No edema. SKIN: Warm, dry, no rash. NEURO: Alert and oriented x3. No focal deficits. PSYCH: Normal mood and affect. Course Vital Signs Vital signs: Vital Signs Temperature 98.4 F 04/21/24 20:49 Pulse Rate 90 04/21/24 20:49 Respiratory Rate 18 04/21/24 20:49 Blood Pressure 111/66 04/21/24 20:49 Pulse Oximetry
[2024-04-21 21:12] LABS: Appearance Urine Cloudy (Clear); Bacteria Urine 2+ /hpf; Bilirubin Urine 2+ (Negative); Blood Urine Trace (Negative); Color Urine Dark Yellow (Yellow); Glucose Urine UA Negative (Negative); Ketones Urine 1+ mg/dL (Negative); Leukocyte Esterase Ur Trace LEU/UL (Negative); Nitrate Urine Negative (Negative); Protein Urine 1+ mg/dL (Negative); Squamous Epithelial Cell Urine Moderate /hpf (Few); WBC Urine 0-5 /hpf (0-3)
[2024-04-21] MEDS: SODIUM CHLORIDE 0.9% IV 1,000 ML 999 ML IV CONT (21:17)
[2024-04-21] MEDS: METOCLOPRAMIDE HCL INJ 10 MG/2 ML VIAL IV PUSH (21:17)
[2024-04-21 21:18] LABS: Basophils Percent Auto 0.3 % (0.2-1.2); Eosinophils Percent Auto 0.2 % (0-4.4); Hematocrit 39.6 % (37.0-47.0); Hemoglobin 13.3 g/dL (12.0-15.0); Immature Granulocyte Absolute 0.04 K/mm3 (0.00-0.031); Immature Granulocyte Percent A 0.3 % (0-0.5); Lymphocytes Absolute Auto 1.64 K/mm3 (0.9-3.2); Lymphocytes Percent Auto 13.6 % (18.3-44.2); Mean Corpuscular HGB Conc 33.6 g/dl (32-36); Mean Corpuscular Volume 89.2 fl (80-100); Mean Platelet Volume 9.6 fl (7.4-10.4); Monocytes Absolute Auto 1.3 K/mm3 (0.1-0.6); Monocytes Percent Auto 10.7 % (2.6-8.5); Neutrophils Percent Auto 74.9 % (45.5-73.1); Platelet Count Result 306 k/mm3 (150-375); Red Blood Count 4.44 M/mm3 (4.2-5.4); Red Cell Distribution Width 13.1 % (11.5-14.5); White Blood Count 12.1 K/mm3 (4.5-10.0)
[2024-04-21 21:19] LABS: Specific Grav Ur 1.034 (1.001-1.035)
[2024-04-21 21:20] LABS: Add Urine Microscopic? YES
[2024-04-21 21:31] LABS: Alanine Aminotransferase 21 U/L (6-35); Albumin Level 4.8 g/dL (3.5-5.1); Alkaline Phosphatase 63 U/L (38-126); Anion Gap 7 mmol/L (4-12); Aspartate Amino Transferase 29 U/L (14-36); Bilirubin,Total 0.6 mg/dL (0.2-1.3); Blood Urea Nitrogen 12 mg/dL (7-17); Calcium 9.9 mg/dL (8.4-10.2); Carbon Dioxide 31 mmol/L (22-30); Chloride 99 mmol/L (98-107); Estimated CRCL calculation 97 ml/min; Estimated Glomerular Filt Rate > 60; Glucose 113 mg/dL (65-110); Lipase 43 U/L (23-300); Potassium 3.2 mmol/L (3.4-5.0); Sodium 137 mmol/L (137-145)
[2024-04-21] MEDS: POTASSIUM CHLORIDE INJ 40 MEQ in SODIUM CHLORIDE 0.9% IV 500 ML 130 MEQ IVPB (21:42)
[2024-04-21 22:34] VITALS: PULSE 81; RESP 16; O2SAT 97
[2024-04-22 00:31] VITALS: PULSE 75; RESP 18; O2SAT 97
[2024-04-22 01:47] VITALS: BP 102/64; PULSE 67; RESP 14; O2SAT 100
== END 2024-04-22 01:49 | disposition home or self-care (01) ==
PROVIDERS: Emergency Provider Physician Assistant
DX: R11.2 Nausea with vomiting, unspecified (principal); K21.9 Gastro-esophageal reflux disease without esophagitis; F41.9 Anxiety disorder, unspecified
CPT/HCPCS: 36415; 80048; 80076; 81001; 81025; 83690; 85025; 96365; 96366; 96375; 99284; J2765; J3480; J7030; J7040

== ENCOUNTER 2024-06-13 01:45 | Day surgery (SDC) | payer OTHER, SELFPAY ==
[2024-06-05 08:38] VITALS: BMI 32.7
[2024-06-13 14:38] VITALS: BP 130/73; PULSE 91; RESP 18; TEMP 36.3; O2SAT 100; BMI 34.1
[2024-06-13] MEDS: LACTATED RINGERS 1,000 ML 150 ML IV CONT (15:04)
--- NOTE | 2024-06-13 15:39 | WPDANESEPPF ---
Anes - Initial Pre Proc Eval Procedure: Operation Date: 06/13/24 16:00 Proposed Procedures p Esophagogastroduodenoscopy - Johnathan Villa MD Date/Time: 06/13/24 15:39 Surgeon: Johnathan Villa MD Pre Op Diagnosis: N&V, Epigastric pain Patient Data Age: 23 Gender: F Height: 1.52 m Weight: 79.2 kg Last Vital Signs Temp 97.3 F L 06/13/24 14:38 Pulse 91 06/13/24 14:38 Resp 18 06/13/24 14:38 BP 130/73 06/13/24 14:38 Pulse Ox 100 06/13/24 14:38 O2 Del Method Room Air 06/13/24 14:38 Allergies Allergy/AdvReac Type Severity Reaction Status Date / Time No Known Allergies Allergy Verified 06/13/24 14:52 Home Medications Medication Instructions Recorded Confirmed Type bupropion HCl 300 mg 24 hr tablet, 300 mg PO DAILY 12/25/23 06/13/24 History extended release metoclopramide HCl 10 mg tablet 10 mg PO Q6H PRN nausea and 04/21/24 06/13/24 Rx (Reglan) vomiting #7 tabs buspirone 5 mg tablet 15 mg PO DAILY 05/12/24 06/13/24 History omeprazole 40 mg capsule,delayed 40 mg PO DAILY #30 caps 05/12/24 06/13/24 Rx release olanzapine 10 mg-samidorphan 10 mg 1 tablet PO DAILY 06/05/24 06/13/24 History tablet (Lybalvi) Patient hx anesthesia problems: none Family hx anesthesia problems: none Results Review: All pre-operative results and documents have been reviewed as part of the pre-operative evaluation. [facility] Past Medical History Medical History Anxiety GERD (gastroesophageal reflux disease) Surgical History Surgical History No significant past surgical history Family History Family History Other Breast cancer Grandparent Cancer of lung Social History Social History (Reviewed 06/13/24 @ 15:39 by DAVID Gregory Social History: Primary care provider: Jonna Welch [employer] Years smoked: 3 Smoking status: Current every day smoker Tobacco type: e-cigarettes/vaping Alcohol intake: never Alcohol use details: She drinks an alcoholic beverage once every couple of months. Substance use: current Substance use type: marijuana Other substance usage details: DAILY AT HS Living arrangements: with family Additional living arrangements comments: She lives with her boyfriend and her 2 older sisters. Her younger brother and sister live with other family members. She reports that her sisters are the family members that watch out for her. Occupation/Education: occupation Additional occupation/education comments: She works at [employer]. She wants to start going to school and is interested in studying either nursing or law. Gender identity (if verbalized by the patient): Female Sexual Orientation (if Verbalized by the Patient): Straight or Heterosexual Spiritual care concerns: No Anes - Eval Final PreProcedure Day of Procedure 06/13/24 15:39 Patient weight: obese Heart: regular rate and rhythm Lungs: clear to auscultation Airway: Mallampati scale class II and special considerations Neurological: alert and oriented Last oral intake: >/= 8 hours ASA classification: II Emergent: no Anesthetic plan: proceed Anesthesia type and monitoring: general GIVS and standard monitoring Results Review: All pre-operative results and documents have been reviewed as part of the pre-operative evaluation. Pt vapes daily, most of the day, marijuana use nightly. Pt reports that she smoked as small amt marijuana this am. Informed Consent: The patient's anesthetic plan and its attendant risks and benefits were discussed with the patient/family/POA. Questions were solicited and answers provided to the satisfaction of the patient/family/POA.
--- NOTE | 2024-06-13 15:46 | PM.HPGS ---
History of Present Illness History of Present Illness Consent: Risks, benefits, and alternatives have been discussed and questions answered. Patient agrees to proceed with procedure. Chief complaint: N&V, Epigastric pain Narrative: Luciana Lepe is a 23 year old female with gerd and intermittent nausea that will come 1-2 times a month, she also uses marijuana. Never had egd. Review of Systems Review of Systems: All systems reviewed & are unremarkable except as noted in HPI and below PMFSH Past Medical History Medical History Anxiety GERD (gastroesophageal reflux disease) Surgical History Surgical History No significant past surgical history Family History Family History Other Breast cancer Grandparent Cancer of lung Social History Social History Social History: Primary care provider: Jonna HENDERSON Years smoked: 3 Smoking status: Current every day smoker Tobacco type: e-cigarettes/vaping Alcohol intake: never Alcohol use details: She drinks an alcoholic beverage once every couple of months. Substance use: current Substance use type: marijuana Other substance usage details: DAILY AT Living arrangements: with family Additional living arrangements comments: She lives with her boyfriend and her 2 older sisters. Her younger brother and sister live with other family members. She reports that her sisters are the family members that watch out for her. Occupation/Education: occupation Additional occupation/education comments: She works at [employer]. She wants to start going to school and is interested in studying either nursing or law. Gender identity (if verbalized by the patient): Female Sexual Orientation (if Verbalized by the Patient): Straight or Heterosexual Spiritual care concerns: No Meds Home Medications and Allergies Home Medications Medication Instructions Recorded Confirmed Type bupropion HCl 300 mg 24 hr tablet, 300 mg PO DAILY 12/25/23 06/13/24 History extended release metoclopramide HCl 10 mg tablet 10 mg PO Q6H PRN nausea and 04/21/24 06/13/24 Rx (Reglan) vomiting #7 tabs buspirone 5 mg tablet 15 mg PO DAILY 05/12/24 06/13/24 History omeprazole 40 mg capsule,delayed 40 mg PO DAILY #30 caps 05/12/24 06/13/24 Rx release olanzapine 10 mg-samidorphan 10 mg 1 tablet PO DAILY 06/05/24 06/13/24 History tablet (Lybalvi) Allergies Allergy/AdvReac Type Severity Reaction Status Date / Time No Known Allergies Allergy Verified 06/13/24 14:52 Vital Signs Vital Signs - 24 hr 06/13/24 14:38 Temperature 97.3 F L Pulse Rate 91 Respiratory Rate 18 Blood Pressure 130/73 Pulse Oximetry 100 Oxygen Delivery Room Air Exam Const: General: comfortable and no acute distress HENMT: Face/Nose/Sinus: Normal nares present Eyes: General: appearance normal, both eyes and all related structures Neck: Neck: no JVD Resp: Auscultation: clear to auscultation bilaterally Cardio: Rate: regular rate Rhythm: regular rhythm GI: Inspection: non-distended GI Palp: Yes Soft to palpation Skin: General skin exam: normal color Neuro: General: gait normal Speech: normal speech Extrem: General: normal to inspection Psych: Mental Status: mental status grossly normal Assessment and Plan Assessment and plan (1) Nausea and vomiting: Qualifiers: Vomiting type: bilious vomiting Qualified Code(s): R11.14 - Bilious vomiting Code(s): R11.2 - Nausea with vomiting, unspecified Status: Acute Assessment and Plan: egd with bx probably exacerbated by use of cannabis (2) Cannabinoid hyperemesis syndrome: Code(s): R11.2 - Nausea with vomiting, unspecified; F12.90 - Ca
[2024-06-13 16:06] VITALS: BP 106/62; PULSE 73; RESP 22; O2SAT 97
[2024-06-13 16:16] VITALS: BP 117/71; PULSE 73; RESP 20; O2SAT 99
[2024-06-13 16:26] VITALS: BP 130/87; PULSE 80; RESP 20; O2SAT 99
== END 2024-06-13 16:33 | disposition home or self-care (01) ==
PROVIDERS: Referring Provider Nurse Practitioner Family; Visit Provider Internal Medicine Gastroenterology
PROC: 0DJ08ZZ Inspection of Upper Intestinal Tract, Via Natural or Artificial Opening Endoscopic (ICD-10-PCS; CPT 43235; principal; 2024-06-13 16:00)
DX: R11.14 Bilious vomiting (principal); R10.13 Epigastric pain; K21.9 Gastro-esophageal reflux disease without esophagitis; F12.90 Cannabis use, unspecified, uncomplicated; F41.9 Anxiety disorder, unspecified; F17.290 Nicotine dependence, other tobacco product, uncomplicated
CPT/HCPCS: 43239; 88305; J2704; J7120

== ENCOUNTER 2024-09-28 09:11 | Outpatient (CLI) | payer OTHER, SELFPAY ==
--- NOTE | ~2024-09-28 | NM_ITS ---
EXAMINATION: NM hepatobiliary wo pharm DATE: 09/28/2024 11:48 INDICATION: Epigastric abdominal pain. COMPARISON: CT abdomen and pelvis 05/05/2020 TECHNIQUE: 5.2 mCi Tc-99m mebrofenin (Choletec) was administered intravenously. Scintigraphic images of the abdomen were obtained for one hour. Then, the patient drank 8 oz Ensure, and imaging was cont inued for 60 minutes. FINDINGS: There is normal clearance of radiotracer from the blood pool. There is homogeneous tracer u ptake by the liver. Activity progresses to the bowel and gallbladder. Gallbladder ejection fraction (GBEF) was 58%. Note that with this technique, normal GBEF >= 33%. IMPRESSION: 1. Normal hepatobiliary scintigraphy. Reviewed, dictated and finalized at location A. NG [facility]ER
== END 2024-09-28 09:12 | disposition home or self-care (01) ==
PROVIDERS: Visit Provider Nurse Practitioner Family
DX: R10.13 Epigastric pain (principal); R11.2 Nausea with vomiting, unspecified
CPT/HCPCS: 78226; A9537

== ENCOUNTER 2025-03-06 11:38 | Emergency (ER) | payer OTHER, SELFPAY ==
[2025-03-06 11:41] VITALS: BP 134/77; PULSE 85; RESP 16; TEMP 36.6; O2SAT 100
[2025-03-06 12:03] LABS: BEDSIDEPREGUCG Negative (Negative)
[2025-03-06] MEDS: ONDANSETRON INJ 4 MG/2 ML VIAL IV PUSH (12:10)
[2025-03-06] MEDS: FAMOTIDINE 20 MG/2 ML VIAL IV PUSH (12:10)
[2025-03-06 12:17] LABS: Basophils Percent Auto 0.2 % (0.2-1.2); Hematocrit 45.8 % (37.0-47.0); Hemoglobin 14.7 g/dL (12.0-15.0); Immature Granulocyte Absolute 0.05 K/mm3 (0.00-0.031); Immature Granulocyte Percent A 0.3 % (0-0.5); Lymphocytes Absolute Auto 1.72 K/mm3 (0.9-3.2); Lymphocytes Percent Auto 11.1 % (18.3-44.2); Mean Corpuscular HGB Conc 32.1 g/dl (32-36); Mean Corpuscular Hemoglobin 28.7 pg (26-34); Mean Corpuscular Volume 89.5 fl (80-100); Mean Platelet Volume 9.8 fl (7.4-10.4); Monocytes Absolute Auto 1.4 K/mm3 (0.1-0.6); Monocytes Percent Auto 8.9 % (2.6-8.5); Neutrophils Absolute Auto 12.4 K/mm3 (1.3-6.7); Neutrophils Percent Auto 79.5 % (45.5-73.1); Platelet Count Result 396 k/mm3 (150-375); Red Blood Count 5.12 M/mm3 (4.2-5.4); Red Cell Distribution Width 13.9 % (11.5-14.5); White Blood Count 15.5 K/mm3 (4.5-10.0)
[2025-03-06 12:29] LABS: Alanine Aminotransferase 25 U/L (6-35); Albumin Level 5.3 g/dL (3.5-5.1); Alkaline Phosphatase 90 U/L (38-126); Anion Gap 14 mmol/L (4-12); Aspartate Amino Transferase 26 U/L (14-36); Bilirubin,Total 0.6 mg/dL (0.2-1.3); Blood Urea Nitrogen 11 mg/dL (7-17); Calcium 9.8 mg/dL (8.4-10.2); Carbon Dioxide 28 mmol/L (22-30); Chloride 96 mmol/L (98-107); Estimated CRCL calculation 87 ml/min; Estimated Glomerular Filt Rate > 60; Glucose 122 mg/dL (65-110); Lipase 98 U/L (23-300); Potassium 3.1 mmol/L (3.4-5.0); Sodium 138 mmol/L (137-145)
[2025-03-06 12:34] LABS: Add Urine Microscopic? YES; Appearance Urine Cloudy (Clear); Bacteria Urine Rare /hpf; Bilirubin Urine Negative (Negative); Blood Urine 1+ (Negative); Color Urine Dark Yellow (Yellow); Glucose Urine UA Negative (Negative); Hyaline Casts Urine Present /lpf; Ketones Urine 1+ mg/dL (Negative); Leukocyte Esterase Ur Negative LEU/UL (Negative); Need Manual Microscopic Reviewed; Nitrate Urine Negative (Negative); Non Pathogenic Casts >20; Protein Urine 2+ mg/dL (Negative); Specific Grav Ur 1.023 (1.001-1.035); Squamous Epithelial Cell Urine Moderate /hpf (Few); Urobilinogen Urine 0.2 mg/dL (<2.0)
--- OUTSIDE RECORDS SUMMARY | 2025-03-06 12:52 | XMS_ITS | Data Portability ---
Author Organization [facility] Address [address] [place] [address] Assessment Encounter Date Assessment Date Assessment LastModified by Organization Details LastModified Time 06/23/2022 06/23/2022 Annual gynecological exam performed. Patient will come back in a year unless there are new symptoms. [email or web address] Not available 06/23/2022 16:58:49 08/18/2022 08/18/2022 Annual gynecological exam performed. Patient will come back in a year unless there are new symptoms. [email or web address] Not available 08/18/2022 15:47:43 10/12/2023 10/12/2023 Annual gynecological exam performed. Patient will come back in a year unless there are new symptoms. [email or web address] Not available 10/12/2023 09:24:22 Plan of Treatment Reminders Order Date Submit Date Provider Last Modified By Organization Details Last Modified Time Details Appointments None recorded . Lab hbcab (hepatit is B core Ab) igm, serum 2022 023 [facility] (Lab), [address] [place], [address], 3 21:31:48 HBsAg (hepatit is B surface Ag), serum 2022 023 [facility] (Lab), [address] [place], [address], 3 21:31:46 hepatiti s C virus Ab, serum 2022 023 [facility] (Lab), [address], [place], [address], 3 21:31:47 unlisted lab - HIV 1/2 antigen/ antibody , reflex confirma tion 2022 023 [facility] (Lab), [address], [place], [address], 3 21:31:47 RPR (rapid plasma reagin), serum 2022 023 [facility] (Lab), [address], [place], [address], 3 21:31:48 pregnanc y test, urine 2021 bobby [facility], [address], [address], [place], [address], 17:36:43 Referral breast surgery referral - Birads 1. Patient would like a breast speciali st consult for a second opinion. Please contact this patient to schedule an appointm ent with a breast speciali st.Attac hed are the patients demograp hics, most recent office visit note and imaging results. If you have any question s, please contact me at [phone].Th ank Frankie bennett, Referral 's 2021 aleeamayaCherry MD ( Breast Sergon), [address] [place] [address]. [facility] [address], [place], [address], 3 13:20:[address] referral - Nausea and vomiting Please contact this patient to schedule an appointm entAttac hed are the patients demograp hics and most recent office visit notes.If you have any question s, please contact me at [phone].Ix ank Frankie bennett, Referral 's 2021 022 [facility], [address], [address], [place], [address], 3 05:01:28 psychiat rist referral - Mixed anxiety and depressi ve disorder This patient will be given your contact nik maza to call and schedule her own appointm ent.Eric noemi are the patients demograp hics and most recent office visit notes.If you have any question s, please contact me at [phone].Th héctor bennett,Frankie german, Referral 's 2021 022 [facility], [address] [place], [address], 3 05:01:28 Procedures None recorded . Surgeries None recorded . Imaging US, breast, bilatera l, w/ axilla 2021 022 [facility], [address], [place], [address], 2 14:52:13 Medication Orders None recorded . Patient TargetsNo targets recorded. Patient InstructionsNo instructions recorded. Reason for Referral Diagram Clerk Referral for Nausea and vomiting Nausea and vomiting Nausea and vomitingPlease contact this patient to schedule an appointmentAttached are the patients demographics and most recent office visit notes.If you have any questions, please contact me at [phone].Thank you,Sarah Referral's Referring Physician: Priya Barraza CONVEYOR FEEDER OFFBEARER, Encounter Date: 06/23/2022 Psychiatrist Referral for Mi xed anxiety and depressive disorder Mixed anxiety and depressive disorder Mixed anxiety and depressive disorderThis patient will be given your contact information to call and schedule her own appointment.Attached are the patients demographics and most recent office visit notes.If you have any questions, please contact me at [phone].Thank you,Sarah Referral's Referring Physician: Priya Barraza, CONVEYOR FEEDER OFFBEARER, Encounter Date: 06/23/2022 Breast Surgery Referral for Breast lump Birads 1. Patient would like a breast specialist consult for a second opinion. Birads 1. Patient would like a breast specialist consult for a second opinion.Please contact this patient to schedule an appointment with a breast specialist.Attached are the patients demographics, most recent office visit note and imaging results.If you have any questions, please contact me at [phone].Thank you,Emmy Smith's Referring Physician: Priya Barraza, CONVEYOR FEEDER OFFBEARER, Encounter Date: 10/14/2022 Results Created Date Observation Date Name Description Value Unit Range Abnormal Flag Note LastModifiedBy Organization Detail LastModifiedTime 06/23/20 22 06/23/2022 CT/GC AND TRICH OMONA S VAGIN SHANTELLE (RRNA ), URINE chlamydia trachomatis, PCR Positi ve negati ve abnormal Posit sherman: Prese nce of C. trach omati s (by GERMÁN) Chlam ydia trach omati s RNA detec della by PCR. Not Available [facility] [address] [place], [address], 06/24/2022 14:23:53 06/23/20 22 06/23/2022 CT/GC AND TRICH OMONA S VAGIN SHANTELLE (RRNA ), URINE neisseria gonorrhoeae, PCR Negati ve negati ve Not Available [facility] [address] [place], [address], 06/24/2022 14:23:53 06/23/20 22 06/23/2022 CT/GC AND TRICH OMONA S VAGIN SHANTELLE (RRNA ), URINE trichomonas vaginalis ribosomal RNA (rrna) Positi ve negati ve abnormal Prese nce of Trich omona s vagin shantelle (by GERMÁN) Not Available [facility] [address] [place], [address], 06/24/2022 14:23:53 06/23/20 22 06/23/2022 pregn dilan test, urine HCG negati ve Not Available [place] [address], [place], [address], 06/23/2022 17:31:29 07/28/20 22 07/28/2022 CT/GC AND TRICH OMONA S VAGIN SHANTELLE (RRNA ), URINE chlamydia trachomatis, PCR Negati ve negati ve Not Available [facility] [address] [place] [address], [address], 07/29/2022 12:01:23 07/28/20 22 07/28/2022 CT/GC AND TRICH OMONA S VAGIN SHANTELLE (RRNA ), URINE neisseria gonorrhoeae, PCR Negati ve negati ve Not Available [facility] [address] [place] [address], [address], 07/29/2022 12:01:23 07/28/20 22 07/28/2022 CT/GC AND TRICH OMONA S VAGIN SHANTELLE (RRNA ), URINE trichomonas vaginalis ribosomal RNA (rrna) Negati ve negati ve Not Available [facility] [address] [place] [address], [address], 07/29/2022 12:01:23 08/18/20 22 08/18/2022 CT/GC AND TRICH OMONA S VAGIN SHANTELLE (RRNA ), URINE chlamydia trachomatis, PCR Negati ve negati ve Not Available [facility] [address] [place] [address], [address], 08/19/2022 12:27:03 08/18/20 22 08/18/2022 CT/GC AND TRICH OMONA S VAGIN SHANTELLE (RRNA ), URINE neisseria gonorrhoeae, PCR Negati ve negati ve Not Available [facility] [address] [place] [address], [address], 08/19/2022 12:27:03 08/18/20 22 08/18/2022 CT/GC AND TRICH OMONA S VAGIN SHANTELLE (RRNA ), URINE trichomonas vaginalis ribosomal RNA (rrna) Negati ve negati ve Not Available [facility] [address], [place], [address], 08/19/2022 12:27:03 09/08/20 22 09/08/2022 US, breas t, bilat eral, w/ axill a No observ ation record ed. [address], [place], [address], 09/10/2022 15:01:23 09/09/20 22 09/08/2022 US, breas t, bilat eral, w/ axill a No observ ation record ed. [place] [address] [facility] [address], [place], [address], 09/10/2022 15:01:23 Result Notes None recorded. Problems Name Problem SNOMED Code Status Onset Date Resolution Date Notes Provider Name and Address Organization Details Recorded Time Bleeding 397519298 Completed 201802/03/2021 Abnormal uterine bleeding ;Recorde d Elsewher e: No Locat ion: [facility] S ource: EHR Rehab Nurse dunia: N Alireza ce ID: [id number] Wallace lable Time: 09:45:00 AM Mavisalvaro Basurto [facility] 16:19:02 Speciali d medical examinat ion Completed 201402/03/2021 ROUTINE INVESTMENT STRATEGIST EXAMINAT ION;Dudley rded Elsewher e: No Locat ion: [facility] S ource: EHR Rehab Nurse dunia: N Nicanorti ce ID: [id number] Wallace lable Time: 10:30:00 AM Mavisalvaro Basurto [facility] 16:19:07 Pregnanc y test negative [id number] Completed 201402/03/2021 Pregnanc y examinat ion or test, negative result;R ecorded Elsewher e: No Locat ion: [facility] S ource: EHR Rehab Nurse dunia: N Nicnaorti ce ID: [id number] Wallace lable Time: 10:30:00 AM Mavis Basurto null, [facility] 16:19:04 Pregnanc y 48121533 Completed 202005/01/2021 Sarah schmitt, [facility] 17:13:28 Anxiety 99295265 Completed Escitalo pram Sarah ochoa [facility], [facility] 17:13:25 Gastroes ophageal reflux disease 180022725 Completed Sarah ochoa [facility], [facility] 17:13:25 Blood coagulat ion disorder 12948487 Completed MTHFR - baby ASA/meth yl folate Sarahbimal ochoa [facility], [facility] 17:13:25 Gastroes ophageal reflux disease 077057197 Active 2020 Ivon Mcclain MD [address], [place], [address], [facility] 16:22:28 Problem Notes None recorded. Procedures Surgical History Date Name Laterality Status Provider Name and Address Organization Details Recorded Time 08/11/2021 Date of Last Pap Smear completed Katia Lebron [facility] 08/15/2021 09:06:47 Imaging Results Imaging Date Name Status LastModified by Organiz ation Details LastModified Time 09/08/2022 US, breast, bilateral, w/ axilla completed [place] [address] [facility] [address] [place] [address], [address], 09/10/2022 15:01:23 09/08/2022 US, breast, bilateral, w/ axilla completed [address] [facility] [address], [place], [address], 09/10/2022 15:01:23 Procedure Notes None recorded. Medical Equipment None Reported. Allergies No known drug allergies Medications Name Sig Start Date Stop Date Status Note LastModified by Organization Details LastModified Time buspirone 5 mg tablet TAKE 1 TABLET BY MOUTH TWICE A DAY DIRECTED FOR 90 DAYS active Not Available Not Available No t Available paroxetin e 10 mg tablet TAKE 1 TABLET BY MOUTH EVERY DAY IN THE MORNING active Not Available Not Available No t Available promethaz ine 12.5 mg tablet 07/25 completed Not Available Not Available Not Available naltrexon e 50 mg tablet TAKE 1 TABLET BY MOUTH IN THE MORNING FOR 30 DAYS active Not Available Not Available No t Available olanzapin e 5 mg tablet TAKE 1/2 TABLET DAILY BY MOUTH AT BEDTIME active Not Available Not Available No t Available olanzapin e 10 mg tablet TAKE 1 TABLET BY MOUTH EVERY DAY AT BEDTIME active Not Available Not Available No t Available topiramat e 25 mg tablet TAKE 1 TABLET BY MOUTH EVERY DAY AT BEDTIME active Not Available Not Available No t Available metronida zole 500 mg tablet Take 1 tablet twice a day by oral route for 7 days. 07/28 completed Not Available Not Available Not Available prochlorp erazine maleate 10 mg tablet TAKE 1 TABLET BY MOUTH TWICE A DAY NEEDED 10/12 completed Not Available Not Available Not Available omeprazol e 40 mg capsule,d elayed release TAKE 1 CAPSULE BY MOUTH DAILY active Not Available Not Available No t Available risperido ne 3 mg tablet TAKE 1 TABLET BY MOUTH AT BEDTIME REASONS: PSYCHOSI S active Not Available Not Available No t Available pantopraz ole 20 mg tablet,de layed release 07/25 completed Not Available Not Available Not Available Microgest in FE 12/11 (28) 1 mg-20 mcg (21)/75 mg (7) tablet take 1 tablet by oral route every day 03/07 completed Prescrib ed Elsewher e: No Locat ion: [facility] odify By: beti danielle DateTime : 01/30/20 15 10:30:00 AM Not Available Not Available Not Available famotidin e 20 mg tablet 07/25 completed Not Available Not Available Not Available metoclopr amide 5 mg tablet 07/25 completed Not Available Not Available Not Available pantopraz ole 40 mg tablet,de layed release TAKE 1 TABLET BY MOUTH ONCE DAILY INDICATI ONS: EXCESS STOMACH SECRETIO NS active Not Available Not Available No t Available buspirone 10 mg tablet TAKE 1 TABLET TWICE A DAY BY ORAL ROUTE DIRECTED FOR 30 DAYS, FOR FOR ANXIETY. active Not Available Not Available No t Available ibuprofen 400 mg tablet take 1 tablet by oral route every 4 - 6 hours as needed 03/07 completed Prescrib ed Elsewher e: Yes Loca tion: [facility] M odify By: beti danielle DateTime : 01/30/20 10:30:00 AM Not Available Not Available Not Available progester one micronize d 200 mg capsule 07/25 completed Not Available Not Available Not Available ceftriaxo ne 500 mg solution for injection Take 500 mg by injectio n route for 1 day. 12/29 completed Not Available Not Available Not Available mirtazapi ne 15 mg tablet TAKE 1 TABLET BY MOUTH AT BEDTIME INDICATI ONS: MOOD DISORDER 10/12 completed Not Available Not Available Not Available Prozac 10 mg capsule Take 1 capsule every day by oral route. 08/11 completed Not Available Not Available Not Available hydroxyzi ne HCl 10 mg tablet TAKE 1 TABLET BY MOUTH EVERY 6 HOURS NEEDED FOR ITCHING, ALLERGIE S, OR ANXIETY FOR UP TO 20 DOSES 10/12 completed Not Available Not Available Not Available ondansetr on 4 mg disintegr ating tablet PLACE 1 TABLET EVERY 8 HOURS BY TRANSLIN GUAL ROUTE NEEDED FOR 30 DAYS. active Not Available Not Available No t Available doxycycli ne hyclate 100 mg tablet Take 1 tablet twice a day by oral route for 7 days. 07/28 completed Not Available Not Available Not Available dicyclomi ne 10 mg capsule TAKE 1 CAPSULE BY ORAL ROUTE 3 TIMES PER DAY NEEDED active Not Available Not Available No t Available risperido ne 0.5 mg tablet TAKE 1 TABLET BY MOUTH EVERY DAY AT BEDTIME FOR 7 DAYS 10/12 completed Not Available Not Available Not Available metoclopr amide 10 mg tablet 10 MG ORALLY EVERY 6 HOURS NEEDED FOR NAUSEA AND VOMITING active Not Available Not Available No t Available buspirone 15 mg tablet TAKE 1 TABLET BY MOUTH TWICE A DAY DIRECTED FOR 90 DAYS active Not Available Not Available No t Available escitalop zacarias 10 mg tablet Take 1 tablet every day by oral route. 08/11 completed Not Available Not Available Not Available Lexapro 20 mg tablet Take 1 tablet every day by oral route. 10/12 completed Not Available Not Available Not Available bupropion HCl XL 300 mg 24 hr tablet, extended release TAKE 1 TABLET BY MOUTH EVERY DAY IN THE MORNING active Not Available Not Available No t Available bupropion HCl XL 150 mg 24 hr tablet, extended release TAKE 1 TABLET BY MOUTH EVERY DAY IN THE MORNING 10/12 completed Not Available Not Available Not Available nitrofura ntoin monohydra te/macroc rystals 100 mg capsule TAKE 1 CAPSULE BY MOUTH EVERY 12 HOURS FOR 5 DAYS. TAKING WITH MEAL/ZABRINA D 06/23 completed Not Available Not Available Not Available folic acid 05/28 completed Not Available Not Available Not Available 05/28 completed Not Available Not Available Not Available ondansetr on 05/28 completed Not Available Not Available Not Available bupropion HCl XL 450 mg 24 hr tablet, extended release TAKE 1 TABLET BY MOUTH EVERY DAY IN THE MORNING active Not Available Not Available No t Available Lybalvi 10 mg-10 mg tablet TAKE 1 TABLET BY MOUTH EVERYDAY AT BEDTIME active Not Available Not Available No t Available Vitals Date Recorded Body height Body mass index (BMI) Body weight Systolic blood pressure Diastolic blood pressure Provider Name and Address Organization Details Last Updated DateTime 06/23/2022 165.1 cm 18.9 kg/m2 63981.37 g 122 mm[Hg] 69 mm[Hg] [facility] 2 17:01:08 Date Recorded Body height Body mass index (BMI) Body weight Systolic blood pressure Diastolic blood pressure Provider Name and Address Organization Details Last Updated DateTime 07/28/2022 165.1 cm 18.9 kg/m2 24316.37 g 135 mm[Hg] 85 mm[Hg] [facility] 2 14:20:41 Date Recorded Body height Body mass index (BMI) Body weight Systolic blood pressure Diastolic blood pressure Provider Name and Address Organization Details Last Updated DateTime 08/18/2022 165.1 cm 18.5 kg/m2 20684.47 g 110 mm[Hg] 65 mm[Hg] [facility] 15:48:03 Date Recorded Body height Systolic blood pressure Diastolic blood pressure Provider Name and Address Organization Details Last Updated DateTime 10/14/2022 165.1 cm 127 mm[Hg] 71 mm[Hg] Khalida Holdenneal [facility] 10/14/2022 15:19:55 Date Recorded Body height Body mass index (BMI) Body weight Systolic blood pressure Diastolic blood pressure Provider Name and Address Organization Details Last Updated DateTime 10/12/2023 165.1 cm 25.4 kg/m2 04928.55 g 125 mm[Hg] 76 mm[Hg] Jeanette Trey [facility] 3 15:55:02 Social History Question Answer Notes LastModified by Organizat ion Details LastModified Time Tobacco Smoking Status Never Smoker [email or web address] 02/03/2021 16:21:19 Are You Blind Or Do You Have Difficulty Seeing? No [email or web address] Information n ot available 07/25/2021 What Is Your Level Of Caffeine Consumption? Occasional [email or web address] Information not available 07/25/2021 In The 14 Days Before Symptom Onset, Have You Had Close Contact With A Laboratory-confirm ed COVID-19 While That Case Was Ill? No [email or web address] Information n ot available 07/25/2021 In The 14 Days Before Symptom Onset, Have You Had Close Contact With A Person Who Is Under Investigation For COVID-19 While That Person Was Ill? No Information not available 07/25/2021 Have You Been To An Area Known To Be High Risk For COVID-19? No [email or web address] Information not available 07/25/2021 Are You Deaf Or Do You Have Serious Difficulty Hearing? No [email or web address] Information not available 07/25/2021 What Type Of Diet Are You Following? REGULAR [email or web address] Information n ot available 07/25/2021 Which Illicit Or Recreational Drugs Have You Used? Marijuana Information not available 02/03/2021 Do You Use Your Seat Belt Or Car Seat Routinely? Yes [email or web address] Information not available 07/25/2021 Do You Have Smoke And Carbon Monoxide Detectors In Your Home? Yes [email or web address] Information not available 07/25/2021 Do You Feel Stressed (tense, Restless, Nervous, Or Anxious, Or Unable To Sleep At Night)? [id number] Information not available 07/25/2021 Do You Use Any Illicit Or Recreational Drugs? Yes Information not available 02/03/2021 Do You Use Sunscreen Routinely? Yes [email or web address] Information not available 07/25/2021 Have You Used IV Drugs? No [email or web address] Information not available 07/25/2021 Do You Or Have You Ever Used Any Other Forms Of Tobacco Or Nicotine? No [email or web address] Information not available 05/28/2021 Sex: Unknown Functional Status Question Answer Note LastModified by Organizat ion Details LastModified Time Do you have difficulty walking or climbing stairs? No [email or web address] Information not available 12/29/2021 Are you able to walk? YESWOREST [email or web address] Information not available 07/25/2021 Are you able to care for yourself? Yes [email or web address] Information not available 12/29/2021 Do you have difficulty dressing or bathing? No [email or web address] Information not available 12/29/2021 What is your exercise level? Occasional [email or web address] Information not available 07/25/2021 Mental Status None recorded. Family History Relationship Description Onset Age of this Age Resolved Age Notes LastModified by Organization Details LastModified Time Mother Anemia Not available 02/03/2021 16:50:22 Mother Malignant tumor of cervix Not available 2020 16:50:53 Mother Hypertensive disorder Not available 2020 16:51:35 Mother Malignant tumor of ovary Not available 2020 16:51:50 Mother Cyst of ovary Not available 2020 16:52:06 Sister Anemia Not available 02/03/2021 16:50:22 Sister Malignant tumor of cervix Not available 2020 16:50:53 Sister Hypertensive disorder Not available 2020 16:51:35 Sister Malignant tumor of ovary Not available 2020 16:51:50 Sister Cyst of ovary Not available 2020 16:52:06 Unspecified Relation Asthma Not available 021 18:58:26 Unspecified Relation Malignant tumor of breast Not available 2020 18:58:55 Medical History Condition Response Allergies (Food, seasonal, environmental ) N Other N Breast Cancer N Drug/Latex Allergies/Reactions N Blood Transfusion N Dermatologic Disorders N Lung Disease N Defects or Inherited Disease N Breast Problem N Gestational Diabetes N Hematologic disorders N Anesthesia Complications N History of STI Y Deep Vein Thrombosis N Polycystic ovary syndrome N Anxiety Disorder Y Autoimmune disease N Arthritis N Infertility N Polyps N Acid Reflux (GERD) Y History of abnormal pap N Cancer N Stroke N Varicosities N Neurologic/Epilepsy N Endometriosis N High Cholesterol N Headaches N Fibromyalgia N Kidney Disease N Heart Problems N Kidney or Bladder Problems N Thyroid Problems N GI Problems N Eating Disorder N Anemia N Art (IVF or FET) N Psychiatric Illness N Ovarian Cancer N Diabetes N Pulmonary (TB, Asthma) N Hepatitis/Liver Disease N No Past Medical History N Eczema N Urinary Tract Infection N Abuse/Domestic Violence N Asthma N Trauma/Violence N Depression/ depression Y Heart Disease N Pre-Eclampsia N Hypertension N Osteoporosis N Thrombophilias N Gynecological History Statement/Question Response Abnormal Pap N Flow Moderate Date of LMP 10/04/2023 On BCP's at Conception? N STIs/STDs Yes HPV Vaccine N Duration of Flow (days) 3 Current Control Method None Sexually Active? Y Age of first menstrual cycle 11 Date of Last Pap Smear 08/11/2021 Sexual Problems? N Desired Control Method None LMP Approximate Obstetrics History GPAL:G 3 P 1 0 2 1 Type Value Full Term 1 Spontaneous 2 Living 1 Total 3 Past Encounters Encounter ID Performer Location Encounter Start Date Encounter Closed Date Diagnosis/Indication Diagnosis SNOMED-CT Code Diagnosis ICD10 Code Diagnosis Note [id number] Keagan Conroy MD [facility] [address] [address] 02/03/2021 15:57:46 02/03/2021 17:07:09 Gastroesophageal reflux disease 587010559 K21.9 Anxiety 31453710 F41.9 Routine an tenatal care 537615296 Z34.92 [id number] [facility] [address],[place] [address] 02/26/2021 12:30:48 02/26/2021 13:06:45 Routine care 426441452 Z34.93 [id number] Ivon Mcclain MD [facility] [address] [address] 03/11/2021 10:37:21 03/11/2021 12:01:05 Routine care 223224272 Z34.03 Gastroesop hageal reflux disease 562625003 K21.9 [id number] [facility] [address] [address] 03/25/2021 15:52:41 03/26/2021 00:08:07 Routine care 231004335 Z34.93 [id number] [facility] [address] [address] 03/25/2021 16:29:38 03/25/2021 17:02:31 Reduced movement 521931927 O36.8199 [id number] Ivon Mcclain MD [facility] [address] [address] 04/16/2021 16:13:11 04/16/2021 16:58:33 Routine care 554359100 Z34.03 [id number] Ivon Mcclain MD [facility] [address] [address] 05/28/2021 15:46:59 05/28/2021 16:30:58 Anxiety 80682673 F41.9 depression 58 250755 F53.0 Mixed anxi ety and depressive disorder 226057698 F41.8 state 6192847 1 Z39.2 [id number] [facility] [address] [address] 07/25/2021 13:44:23 07/25/2021 14:35:56 Mixed anxiety and depressive disorder 146627516 F41.8 [id number] Ivon Mcclain MD [facility] [address] [address] 08/11/2021 15:44:46 08/11/2021 17:10:03 Gynecologic examination 72430179 Z01.419 depression 58 993060 F53.0 [id number] Pastora Vega [facility] [address],[place] [address] 08/18/2021 15:22:43 08/20/2021 16:44:33 Venereal disease screening [id number] Z11.3 Sexually t ransmitted infectious disease 5090433 A64 Mixed anxi ety and depressive disorder 330144086 F41.8 Switch to am dosing. RTC in 2 weeks.Pt wants to return to work. [id number] Pastora Vega [facility] [address],[place] [address] 09/04/2021 15:26:09 09/09/2021 19:58:20 Mixed anxiety and depressive disorder 324076231 F41.8 Does feel dose time change has helped. She feels that overall is doing better and would like to continue on current dose for now. Will return in 1 month for follow up. No thoughts of harming herself or others. If any worsening of symptoms she will notify us right away. [id number] Ivon Mcclain MD [facility] [address],[place] [address] 09/12/2021 15:27:45 09/15/2021 15:15:20 Gonococcal cervicitis 413201539 A54.03 Venereal d isease screening 641814320 Z11.3 Sexually t ransmitted infectious disease 1527952 A64 [id number] Ivon Mcclain MD [facility] [address],[place] [address] 09/16/2021 16:43:34 09/17/2021 18:24:02 Gonorrhea 31547406 A54.9 [id number] Pastora Vega [facility] [address],[place] [address] 09/24/2021 11:08:14 09/24/2021 13:08:06 Mixed anxiety and depressive disorder 276943150 F41.8 Discussed importance of evaluation . Pt agreed and is going to [facility] today. Info sheet given. Pt feels she needs to be taken off of work again until the new year. I would like consult note to consider this. [id number] Nita Reyna [facility] [address],[place] [address] 12/29/2021 12:00:53 12/30/2021 17:45:07 Mixed anxiety and depressive disorder 344041218 F41.8 [id number] ELAINE Mccarty [facility] [address],[place] [address] 06/23/2022 16:44:20 06/23/2022 18:03:39 Mixed anxiety and depressive disorder 460062622 F41.8 She declines any medication treatment for anxiety or depression at this timeEncour aged counseling , also referred patient to psychiatri st.ED precaution s given, to call 911 with any suicidal thoughtsTo call the office if she would like medication management RACHEL urine sent for (+) trich and gonorrhea on 09/11/2022 Condom use encouraged To call and schedule appointmen t with PCP for episodes of N/V, GI referral also sent for evaluation /managemen t. ED precaution s given (extreme abdominal pains, persistant N/V, unable to keep fluids down, etc). To avoid trigger foods, stick to bland diet, ensure adequate hydration. Urine hcg (-) todayRTC in 1 month for WWE when this is due (on or after 08/11/2022) Time spent in visit is a total of 30 mins with at least 50% of visit consisting of counseling and review of plan of care. Nausea and vomiting 1693 2000 R11.2 Venereal d isease screening 038833010 Z11.3 History of sexually transmitted disease 068687155 Z86.19 Irregular periods 020466 07 N92.6 [id number] ELAINE Mccarty [facility] [address],[place] [address] 07/28/2022 14:08:25 07/30/2022 16:21:54 Chlamydial infection 166952493 A74.9 RACHEL urine collectedC ondom use encouraged No vaginal symptomsRT C for WWEDepress ion/anxiet y symptoms have improved. Feeling better. No suicidal thoughts or thoughts of harming others. She is trying to get into counseling . Declines medication at this time.ED precaution s discussed Time spent in visit is a total of 15 mins with at least 50% of visit consisting of counseling and review of plan of care. Infection by Trichomonas 68411587 A59.9 Mixed anxi ety and depressive disorder 334176802 F41.8 [id number] ELAINE Mccarty [facility] [address],[place] [address] 08/18/2022 15:31:45 08/18/2022 16:15:34 Breast lump 62306046 N63.0 Gynecologi c examination 81596732 Z01.419 Take Calcium with Vitamin D 1200mg daily if not receiving in daily diet. It is strongly advised to have an annual flu shot and up can obtain at most pharmacies . If you have not had a TDap shot in the last 10 years you should obtain one as well. Discussed with patient & provided with informatio n regarding Gardisil vaccine to prevent the 4 strains for HPV that cause cervical cancer if under age 26. Encourage safe sexual practices, to use condoms and limit partners if not already in a monogamous relationsh ip. Do monthly self breast exams. Have mammogram yearly or every other year depending on family history. BRCA testing is now available for patients with strong genetic history of female cancer. If interested contact the office. Engage in daily exercise of low impact aerobic exercise 45-60 minutes 4-5 times weekly. Avoid tobacco and illicit drugs as well as using moderation with alcohol intake less than 1-2 8 oz beverages daily. This lifestyle behavior pattern will lead to less health conditions and longer life span. If BMI greater than 25 weight watchers or dietary consult advised. Patient received above instructio ns, and questions have been answered. If you have any questions please call or respond to this email. Patient was made aware of the patient portal and may obtain a paper copy of today's plan if desired. WWEBC - condoms. All BC methods discussed. She will consider, handouts on IUD, nexplanon, and patches given to patient.Sh e denies hx of DVT/PE, HTN, stroke/IA, cancer, liver disease, or migraine with auraNo hx of abnormal papsLast pap 08/11/2021 NILMNo pap needed today per ASCCP guidelines , next due 07/2024Urin e STI testing sentBilate ral breast lumps felt throughout , left breast with most significan t, at 12 o'clock, about 2cm in size. We agreed to bilateral breast u/s for further evaluation .Genetic testing discussed, states her sister may have had ovarian cancer at age 18. Encouraged her to find out more informatio n about this and notify us with the informatio n.RTC in 1 year or sooner if needed [facility] ion care management [id number] Z30.9 [id number] ELAINE Mccarty [place] [address],[place] [address] 10/14/2022 15:12:16 10/14/2022 17:53:34 Breast lump 51718414 N63.0 Bilateral fibrocysti c breast changesWe discussed normal fibrocysti c breast changes in young womenLeft breast with prominent lumps felt in the upper outer quadrant. Right breast with lump felt at 12 o'clock. Unable to determine fibrocysti c changes vs mass. We discussed this finding and her recent normal u/s, no cyst or masses seen - discussed option to be seen by a breast specialist - patient would like breast specialist consult for a second opinion. Referral sent, encouraged patient to schedule this appointmen t.RTC for WWE or sooner if needed Time spent in visit is a total of 15 mins with at least 50% of visit consisting of counseling and review of plan of care. [id number] ELAINE Mccarty [facility] [address],[place] [address] 10/12/2023 15:47:09 10/13/2023 09:33:35 Gynecologic examination 89470494 Z01.419 Z11.3 Z11.8 WWEBC - condomspap updatedgc/ ct/trich testing added to papblood STI panel orderedenc ouraged to attend f/u with breast specialist RTC in 1 yr or sooner if needed Take Calcium with Vitamin D daily if not receiving in daily diet.It is strongly advised to have an annual flu shot and up can obtain at most pharmacies . If you have not had a TDap shot in the last 10 years you should obtain one as well. Discussed with patient & provided with informatio n regarding Gardisil vaccine to prevent the 4 strains for HPV that cause cervical cancer if under age 26.Encoura ge safe sexual practices, to use condoms and limit partners if not already in a monogamous relationsh ip.Do monthly self breast exams.Enga ge in daily exercise of low impact aerobic exercise 45-60 minutes 4-5 times weekly. Avoid tobacco and illicit drugs as well as using moderation with alcohol intake less than 1-2 8 oz beverages daily. This lifestyle behavior pattern will lead to less health conditions and longer life span. If BMI greater than 25 dietary consult advised.Jackson sanchez received above instructio ns, and questions have been answered. If you have any questions please call or respond to this email.Chely mann was made aware of the patient portal and may obtain a paper copy of today's plan if desired. Venereal d isease screening 247332186 Z11.3 Sexually t ransmitted infectious disease 2665879 A64 Health Concerns Section Related Observation LastModified by Organization Detai ls LastModified Time None Recorded Concern Status LastModified by Organization Details LastModified Time None Recorded Advance Directives Directive None Recorded Payers Encounter Date Sequence Insurance Name Policy Number Policy Gaitan Covered Member ID Gaitan Member ID Guarantor Name 06/23/2022 1 [facility] - DOS ON OR AFTER 21 (MEDICAID REPLACEMENT - HMO) Luciana Lepe [id number] Luciana Sherley 07/28/2022 1 [facility] - DOS ON OR AFTER 21 (MEDICAID REPLACEMENT - HMO) Luciana Lepe [id number] Luciana Sherley 08/18/2022 1 [facility] - DOS ON OR AFTER 21 (MEDICAID REPLACEMENT - HMO) Luciana Lepe [id number] Luciana Sherley 10/14/2022 1 [facility] - DOS ON OR AFTER 21 (MEDICAID REPLACEMENT - HMO) Luciana Lepe [id number] Luciana Lepe 10/12/2023 1 [facility] - DOS ON OR AFTER 21 (MEDICAID REPLACEMENT - HMO) Luciana Lepe [id number] Luciana Lepe Notes Date Note Type Note Provider Name and Address Organization Details Recorded Time 2 text/html Patient here for med check for lexapro, started for anxiety and depression. She has not been taking it x 2 months. Feels like her anxiety and depression is improving some, she does not want to take medication. No suicidal thoughts or thoughts of harming others.Feels like she is worried often and does still get anxious, states she has been finding ways to cope with anxiety and she feels better off of the medication than on it.Not in any counselingCondoms for control, needs RACHEL as she never had it done for (+) trich and gonorrhea on 09/12/2021No vaginal symptomsHas been having episodes of N/V, currently feeling okay but went to [place] [facility] over the weekend. States they gave her IV fluids. States she is triggered by spicy foods and fried foods. Not currently having any N/V.Denies any fever, chills, flu-like symptomsShe is not ELAINE Mccarty [address], [place], [address], [facility] 06/23/2022 17:52:11 2 text/html Patient presents for RACHEL from recent (+) chlamydia and trichomonas infectionCompleted medication courseNotified her partner, no longer togetherNo vaginal symptoms ELAINE Mccarty [address], [place], [address], [facility] 07/28/2022 14:34:08 2 text/html Annual GYNReported bypatient.Menstrual cycle:Normal menses Urinary symptoms:No hematuria; No incontinence Vulva:No genital lesion Vagina:Normal vaginal discharge Breast:No breast pain; No breast lump; No nipple discharge Current Contraception:Condoms Sexual complaints:No sexual complaints; No pain during intercourse; Normal libido Menopausal Symptoms:No menopausal symptoms; Normal vaginal lubrication Psychological symptoms:No depression; No anxiety; No PMDD Preventive measures:Encourage self breast examination; Encourage regular exercise; Encourage no tobacco use; Encourage regular mammograms starting age 40 ELAINE Mccarty [address], [place], [address], [facility] 08/18/2022 16:04:16 2 text/html 22yo Presents for breast examLeft breast [facility]22 : bi-rads 1She still feels the lumps ELAINE Mccarty [address], [place], [address], [facility] 10/14/2022 17:00:10 3 text/html Annual GYNReported bypatient.Menstrual cycle:Normal menses Urinary symptoms:No hematuria; No incontinence Vulva:No genital lesion Vagina:Normal vaginal discharge Breast:No breast pain; No breast lump; No nipple discharge Current Contraception:Satisfied with current contraception; Condoms Sexual complaints:No sexual complaints; No pain during intercourse; Normal libido Menopausal Symptoms:No menopausal symptoms; Normal vaginal lubrication Psychological symptoms:No depression; No anxiety; No PMDD Preventive measures:Encourage self breast examination; Encourage regular exercise; Encourage no tobacco use; Encourage regular mammograms starting age 40Notes:no hx of abnormal papslast pap aw breast specialist for left breast lump 11/2022 - had normal imaging per pt. Has f/u 11/2023 ELAINE Mccarty [address], [place], [address], [facility] 10/13/2023 09:22:44 OBGyn Episode Ob Episode Information Episode Created Date Number of Fetuses Patient Bloodtype Patient rh Status Prepregnancy Weight lbs Domestic Partner Domestic Partner Phone Father Name Cake Froster Status 02/04/20 21 1 CLOSED Fetus Data First Name Last Name Admitted to NICU Weight (g) Sex Living Outcome Pediatric Complications Fetus ID Race Codes Race Delivery Type , Spontane ous 8478 Daniel Calculation Initial Daniel Date Initial Exam Date Initial Exam Provider Initial Ultrasound Date Last Menstrual Period Date Ultra Sound Weeks Gestation 0 Eighteen To Twenty Week Daniel Update Ultra Sound Date Fundal Height At Umbil Quickening Date Ultra Sound Latest Weeks Gestation Final Daniel Confirmed By Final Daniel Confirmed Date Final Daniel Date Ultra Sound Latest Days Gestation 0 0 Menstrual History Last Menstrual Date Menses Monthly On Bcp Conception Prior Menses Frequency Hcg Plus Date Menarche Onset Age Delivery Information Delivery Date Delivery Type Labor Anesthesia Weeks Gestation Incision Type Labor Labor Length Hrs Delivered By Post Complications Tubal Sterilization Discharge Date Comments 8 Discharge Information Feeding Method Contraceptive Method Maternal HG B and HCT Levels Ob Episode Information Episode Created Date Number of Fetuses Patient Bloodtype Patient rh Status Prepregnancy Weight lbs Domestic Partner Domestic Partner Phone Father Name Cake Froster Status 02/04/20 21 1 B Positive 124 Tirso CLOSED Fetus Data First Name Last Name Admitted to NICU Weight (g) Sex Living Outcome Pediatric Complications Fetus ID Race Codes Race Delivery Type 2523.10 55 F true Full Term 8480 Vaginal Delivery Problems Problem Notes records reviewed - need hep c. Had gc/ch/trich with us already. Problem Name Start Date End Date Resolution Snomed Code Not e Blood coagulation disorder [id number] MTHFR - baby ASA/methyl folate Anxiety 04933177 Escitalopr am Gastroesophageal reflux disease 016582409 Daniel Calculation Initial Daniel Date Initial Exam Date Initial Exam Provider Initial Ultrasound Date Last Menstrual Period Date Ultra Sound Weeks Gestation 05/13/2021 02/03/2021 09/08/2020 08/06/2020 5 Eighteen To Twenty Week Daniel Update Ultra Sound Date Fundal Height At Umbil Quickening Date Ultra Sound Latest Weeks Gestation Final Daniel Confirmed By Final Daniel Confirmed Date Final Daniel Date Ultra Sound Latest Days Gestation 0 [email or web address] 02/03/2021 05/08/20 21 0 Pre-donna Flowsheet Flowsheet Date 02/03/2021 Lobato Score Blood Edema Fundus Height Fundus Units Glucose Ketones Leukocytes Nitrite Labor Signs Protein Cervic Dilation Cervic Effacement Cervic Station 26 Type Weight in lbs Pre/Post Dialysis Refused Weight 138.018150658866 BP Diastolic BP Location Tested BP Systolic BP Type 67 R arm 112 sitting Fetus Heart Rate Present A 145 Fetus Movement Comments this patient is a 20-year-ol d 3 para 0020 at about 26 weeks gestation with good dating, she presents for transfer of care. She is known to have the MTHFR gene mutation. She is taking a baby aspirin. She is asked to start methyl folate. She was getting B12 shots at her previous provider. We will begin routine care Flowsheet Date 02/26/2021 Lobato Score Blood Edema Fundus Height Fundus Units Glucose Ketones Leukocytes Nitrite Labor Signs Protein Cervic Dilation Cervic Effacement Cervic Station none 29 trace Type Weight in lbs Pre/Post Dialysis Refused Weight 146.371485820815 BP Diastolic BP Location Tested BP Systolic BP Type 70 114 Fetus Heart Rate Present A 140 Fetus Movement A Yes Comments Doing well. 28 week labs tod ay. Encouraged tdap. Pt asked about water . Informed that [facility] does not offer water . Discussed alternatives. Pt verbalized understanding. Having a girl Nova ! Flowsheet Date 03/11/2021 Lobato Score Blood Edema Fundus Height Fundus Units Glucose Ketones Leukocytes Nitrite Labor Signs Protein Cervic Dilation Cervic Effacement Cervic Station neg trace 30 trace Type Weight in lbs Pre/Post Dialysis Refused Weight 145.0321116272 BP Diastolic BP Location Tested BP Systolic BP Type 67 109 Fetus Heart Rate Present A 145 Fetus Movement A Yes Comments Doing ok except GERD bad and having some N/V again because of it. Will get pepcid or zantac OTC. Good FM. Taking iron for anemia. Flowsheet Date 03/25/2021 Lobato Score Blood Edema Fundus Height Fundus Units Glucose Ketones Leukocytes Nitrite Labor Signs Protein Cervic Dilation Cervic Effacement Cervic Station none 34 Type Weight in lbs Pre/Post Dialysis Refused Weight 150.231108686798 BP Diastolic BP Location Tested BP Systolic BP Type 74 112 Fetus Heart Rate Present A 140 Fetus Movement A Yes Comments Doing well. Has noticed a li ttle decrease in movement. NST today. Discussed kick counts and importance of regular movement. Pt will let us know if she has less than 10 kicks per hour. Pt discontinued depression/anxiety meds 4 months ago. Increase in anxiety/depression. Discussed medication options and pt is interested in starting zoloft. We discussed risks and benefits in detail and pt wants to proceed. Counseling encouraged. No thoughts of harming herself or others. If any worsening of symptoms she will let us know right away. Pt feeling a little stressed because they are moving to be in a better environment. Planning move to [place]. Plans to continue care with us. Flowsheet Date 03/25/2021 Lobato Score Blood Edema Fundus Height Fundus Units Glucose Ketones Leukocytes Nitrite Labor Signs Protein Cervic Dilation Cervic Effacement Cervic Station Type Weight in lbs Pre/Post Dialysis Refused BP Diastolic BP Location Tested BP Systolic BP Type Fetus Heart Rate Present Fetus Movement Comments Flowsheet Date 04/16/2021 Lobato Score Blood Edema Fundus Height Fundus Units Glucose Ketones Leukocytes Nitrite Labor Signs Protein Cervic Dilation Cervic Effacement Cervic Station neg trace 35 trace 2cm 50% Type Weight in lbs Pre/Post Dialysis Refused Weight 154.360437380064 BP Diastolic BP Location Tested BP Systolic BP Type 82 134 Fetus Heart Rate Present A 150 Fetus Movement A Yes Comments Doing well. Getting uncomfor table. GERD is better. Only took zoloft for 2 days, but mood not good, anxious, going to try to restart. GBS done and discussed. Precautions given. Menstrual History Last Menstrual Date Menses Monthly On Bcp Conception Prior Menses Frequency Hcg Plus Date Menarche Onset Age 0908/06/2020 Genetic Screening And Infection History Question Response Note Mental Retardation/Autism false Patient's Age Will Be 35 Years Or Older At Estim ated Date of Delivery false Thalassemia (Prydeinig, Occitan, Mediterranean, Or Background): MCV < 80 false Neural Tube Defect (Meningomyelocele, Spina Bifi da, Or Anencephaly) false Congenital Heart Defect false Down Syndrome false Milton-Sachs (eg, Anabaptism, Cajun, Panamanian-R[place]) f alse Frank Disease false Sickle Cell Disease Or Trait () false Hemophilia Or Other Blood Disorders false Muscular Dystrophy false Cystic Fibrosis false Nobles's Chorea false Intellectual Disability/Autism false If Yes, Was Person Tested For Fragile X? false Other Inherited Genetic Or Chromosomal Disorder false Maternal Metabolic Disorder (eg, Type 1 Diabetes , PKU) false Patient Or Baby's Father Had A Child With Defects Not Listed Above false Recurrent Loss, Or A Stillbirth false Medications (including Suppl ements, Vitamins, Herbs, OTC Drugs), Illicit/Recreational Drugs, Alcohol false If Yes, Agent(s) And Strength/Dosage false Any Other Genetic History false Live With Someone With TB Or Exposed To TB false Patient Or Partner Has History Of Genital Herpes false Rash Or Viral Illness Since Last Menstrual Perio d false History Of STD, Gonorrhea, Chlamydia, HPV, Syphi lis false Other Infection History false History of HIV false History of Hepatitis false Prior GBS-infected child false Hemoglobinopathy Or Carrier false Other Structural Defect false Recent Travel History Outside of Country false Delivery Information Delivery Date Delivery Type Labor Anesthesia Weeks Gestation Incision Type Labor Labor Length Hrs Delivered By Post Complications Tubal Sterilization Discharge Date Comments 1 Jarod hull [facility] Health[facility] id[facility] 37.6 false Ivon Mcclain MD Gbs+ Discharge Information Feeding Method Contraceptive Method Maternal HG B and HCT Levels Ob Episode Information Episode Created Date Number of Fetuses Patient Bloodtype Patient rh Status Prepregnancy Weight lbs Domestic Partner Domestic Partner Phone Father Name Cake Froster Status 02/04/20 21 1 CLOSED Fetus Data First Name Last Name Admitted to NICU Weight (g) Sex Living Outcome Pediatric Complications Fetus ID Race Codes Race Delivery Type , Spontane ous 8479 Daniel Calculation Initial Daniel Date Initial Exam Date Initial Exam Provider Initial Ultrasound Date Last Menstrual Period Date Ultra Sound Weeks Gestation 0 Eighteen To Twenty Week Daniel Update Ultra Sound Date Fundal Height At Umbil Quickening Date Ultra Sound Latest Weeks Gestation Final Daniel Confirmed By Final Daniel Confirmed Date Final Daniel Date Ultra Sound Latest Days Gestation 0 0 Menstrual History Last Menstrual Date Menses Monthly On Bcp Conception Prior Menses Frequency Hcg Plus Date Menarche Onset Age Delivery Information Delivery Date Delivery Type Labor Anesthesia Weeks Gestation Incision Type Labor Labor Length Hrs Delivered By Post Complications Tubal Sterilization Discharge Date Comments 7 Discharge Information Feeding Method Contraceptive Method Maternal HG B and HCT Levels
--- OUTSIDE RECORDS SUMMARY | 2025-03-06 12:52 | XMS_ITS | Clinical Summary ---
Author Organization [facility] Address [address] [place] [address] Care Team Providers Care Upper Shaper Name Role Phone Sol Koch PA-C Primary Care Provider + Source Comments [facility],non-owned Affiliates and Associated Physician Practices is amultiple site organization consisting of ambulatory clinics and hospital sitesin [place], [place], [place] and [place]. This disclosure is being madepursuant to the Care Everywhere program and may not contain all information available regarding this patient. Last updated 18.[facility] Allergies No known active allergies Medications * This document contains information received from the source organization and may not represent a complete record from that organization. * Be aware that medications may not be up to date on this document. Alwaysverify current medications with the patient. mirtazapine (Remeron) 15 MG tabletIndications: Mood Disorder Take 1 (one) tablet by mouth at bedtime Reasons: Mood Disorder 30 tablet 1 01/27/20 23 Active Additional Information Patient not taking.Reported on 02/10/2024 risperiDONE (RisperDAL) 3 MG tabletIndications: Psychosis Take 1 (one) tablet by mouth at bedtime Reasons: Psychosis 30 tablet 1 01/27/20 23 Active Additional Information Patient not taking.Reported on 02/10/2024 pantoprazole EC (Protonix) 40 MG tabletIndications: Gastric Hypersecretory Conditions Take 1 (one) tablet by mouth once daily Reasons: Excess Stomach Secretions 30 tablet 1 01/28/20 23 Active Additional Information Patient not taking.Reported on 02/10/2024 buPROPion XL 24hr (Wellbutrin-XL) 300 MG tablet Take 1 (one) tablet by mouth every morning 12/22/19 Active busPIRone (Buspar) 10 MG tablet TAKE 1 TABLET BY MOUTH TWICE A DAY DIRECTED 01/24/20 24 Active Active Problems Problem Noted Date Diagnosed Date Depressive disorder 01/26/2023 Cannabis use disorder, moderate, dependence 12/2022 Psychotic disorder 01/20/2023 Social History Tobacco Use Types Packs/Day Years Used Date Smoking Tobacco: Former Cigarettes Smokeless Tobacco: Never Tobacco Cessation:Counseling Given: Not Answered Alcohol Use Standard Drinks/Week Comments Never 0 (1 standard drink = 0.6 oz pur e alcohol) AUDIT-C Answer Date Recorded Q1: How often do you have a drink containing alc ohol? 2-4 times a month 01/20/2023 Q2: How many drinks containi ng alcohol do you have on a typical day when you are drinking? 3 or 4 01/20/2023 Q3: How often do you have si x or more drinks on one occasion? Weekly 01/20/2023 Comments Unknown Sex and Gender Information Value Date Recorded Sex Assigned at Female 12/15/2022 1:14 PM LOSS PREVENTION AGENT Legal Sex Female 11:48 AM LOSS PREVENTION AGENT Gender Identity Female 12/15/2022 1:14 PM LOSS PREVENTION AGENT Sexual Orientation Straight 12/15/2022 1: 14 PM LOSS PREVENTION AGENT Last Filed Vital Signs Vital Sign Reading Time Taken Comments Blood Pressure 104/60 02/10/2024 2:20 PM CDT Pulse 73 02/10/2024 2:20 PM CDT Temperature 36.7 C (98.1 F) 01/26/2023 8:01 AM LOSS PREVENTION AGENT Respiratory Rate 18 01/26/2023 8:01 AM LOSS PREVENTION AGENT Oxygen Saturation 98% 02/10/2024 2:20 PM CDT Inhaled Oxygen Concentration - - Weight 46.2 kg (101 lb 12.8 oz) 01/21/2023 1:04 PM LOSS PREVENTION AGENT Height 157.5 cm (5' 2 ) 01/20/2023 3:20 PM LOSS PREVENTION AGENT Body Mass Index 18.62 01/20/2023 3:20 PM LOSS PREVENTION AGENT Plan of Treatment Health Maintenance Due Date Last Done Comments PAP SMEAR 1999 HPV VACCINE (1 - 3-dose series) 2014 HEPATITIS C SCREENING 09/25/2017 DTAP/TDAP/TD VACCINES (1 - Tdap) 2018 HEPATITIS B VACCINE (1 of 3 - 19+ 3-dose series) 2018 COVID-19 VACCINE (1 - 2023-2 5 season) 2024 CHLAMYDIA/GONORRHEA SCREENING 10/12/2024, 10/12/2023, 08/18/2022 DEPRESSION SCREENING 11/22/2024 INFLUENZA VACCINE (Season Ended) 2025 09/27/2020 ZOSTER VACCINE (1 of 2) 2049 HIV SCREENING Completed 02/26/2021 HIB VACCINE Aged Out No longer eligi ble based on patient's age to complete this topic MENINGOCOCCAL (Group B) VACCINE SHARED DECISION-MAKING Aged Out No longer eligible based on patient's age to complete this topic MENINGOCOCCAL GROUPS A/C/Y/W VACCINE Aged Out No longer eligible b ased on patient's age to complete this topic PNEUMOCOCCAL VACCINE Aged Out No long er eligible based on patient's age to complete this topic Insurance * Guarantor: SHERLEYAURELIO Account Type Relation to Patient Date of Phone Billing Address Personal/Family [address] [place] [address] [facility] SELF PAY NO INSURANCE Member Subscriber Plan / Payer (Ef fective for All Dates) Name:Aurelio Lepe Member ID:Not on file Relation to Subscriber:Not on file Name:AURELIO LEPE Subscriber ID:Not on file Address: [address] [place] [phone] Payer ID:Not on file Group ID:Not on file Type:Self Pay Address: [place], [place] * Guarantor: YAIMA LEPENEY Account Type Relation to Patient Date of Phone Billing Address Personal/Family [address] [place] [phone] [facility] SELF PAY NO INSURANCE Member Subscriber Plan / Payer (Ef fective for All Dates) Name:Aurelio Lepe Member ID:Not on file Relation to Subscriber:Not on file Name:AURELIO LEPE Subscriber ID:Not on file Address: [address] [place] [phone] Payer ID:Not on file Group ID:Not on file Type:Self Pay Address: [place], [place] * Guarantor: AURELIO LEPE Account Type Relation to Patient Date of Phone Billing Address Personal/Family [address] [place] [phone] [facility] SELF PAY NO INSURANCE Member Subscriber Plan / Payer (Ef fective for All Dates) Name:Aurelio Lepe Member ID:Not on file Relation to Subscriber:Not on file Name:AURELIO LEPE Subscriber ID:Not on file Address: [address] [place] [phone] Payer ID:Not on file Group ID:Not on file Type:Self Pay Address: [place], [place] [employer] [facility] Advance Directives * Full Code (Latest Code Status on File) Date Activated Date Inactivated Comments 01/20/2023 5:02 PM 01/26/2023 3:17 PM Care Teams Upper Shaper Relationship Specialty Start Date End Date Sol Koch PA-C [address] [place] [phone] PCP - General Physician Cremator 12/15/22
--- OUTSIDE RECORDS SUMMARY | 2025-03-06 12:52 | XMS_ITS | Patient Health Record ---
Author Organization [facility] Address [address] [place] [address] Care Team Providers Care Apparel Fashion Designer Name Role Phone Ginette Canonica Primary Care Provider [phone] Allergies No Known Allergies Reason For Referral No Information Medications Medication SIG (Take, Route, Frequency, Duration) Notes Start Date End Date Status Mirtazapine 30 MG 1 tablet at bedtime Orally Once a day for 30 days Active Pantoprazole Sodium 40 MG 1 tablet Orall y Once a day for 30 days Active risperiDONE 3 MG TAKE 1 TABLET BY ALLEGRA TH EVERY DAY for 30 Active Omeprazole 20 MG 1 capsule 30 minutes before morning meal Orally Once a day for 30 day(s) Not-Taking Dicyclomine HCl 10 MG 1 tablet as needed Orally Three times a day Not-Taking Ivabradine HCl 5 MG 2 tablet as needed Orally Twice a day Not-Taking Ondansetron 4 MG 1 tablet on the tong ue and allow to dissolve Orally every 4 hours as needed Not-Taking PARoxetine HCl 10 MG 1 tablet in the mor judy Orally Once a day for 30 day(s) Not-Taking Social History Sex Assigned At : Social History Observation Description Sex Assigned At Female Problems Problem Type SNOMED Code ICD Code Onset Dates Problem Status W/U Status Risk Notes Problem Bipolar 1 disorder (314507990) Bipolar 1 disorder (F31.9) Active confirmed Plan Of Treatment No Information Insurance Providers Payer Name Payer Address Payer Phone Subscriber Number Group Number Insured Name Patient Relationship to Insured Coverage Start Date Coverage End Date [facility] Attn Claims Department [address] [place] [address] [phone] [facility] [id number] Luciana Lepe Self - patient is the insured 3 Medical (General) History Surgical History Surgery Date(Month/Year) Hospitalization History Reason Date(Month/Year) - [facility] 01/2023
--- OUTSIDE RECORDS SUMMARY | 2025-03-06 12:52 | XMS_ITS | Referral Summary ---
Author Organization [facility] Address [address] [place] [address] Care Team Providers Care Medical Coder Name Role Phone Sol Koch Primary Care Provider Allergies No known active allergies Medications dicyclomine (BENTYL) 10 mg capsuleIndications :Abdominal Pain with Cramps,Irritable Bowel Syndrome Take 1 capsule (10 mg total) by mouth 4 (four) times a day before meals and nightly for 20 doses 20 capsule 2 Active prochlorperazine (COMPAZINE) 10 mg tablet Take 1 tablet (10 mg total) by mouth 2 (two) times a day as needed for nausea or vomiting 10 tablet 2 Active ondansetron ODT (ZOFRAN-ODT) 4 mg disintegrating tablet Take 1 tablet (4 mg total) by mouth every 8 (eight) hours as needed for nausea or vomiting 20 tablet 2 Active hydrOXYzine (ATARAX) 10 mg tabletIndications: anxiety,Pruritus of Skin,Urticaria Take 1 tablet (10 mg total) by mouth every 6 (six) hours as needed for itching, allergies or anxiety for up to 20 doses 20 tablet 2 Active Social History Tobacco Use Types Packs/Day Years Used Date Smoking Tobacco: Never Assessed Personal Safety Answer Date Recorded Getting School Help Needed Not on file 11/21 Comments Unknown Sex and Gender Information Value Date Recorded Sex Assigned at Not on file Legal Sex Female 11:59 AM CDT Gender Identity Not on file Sexual Orientation Not on file Last Filed Vital Signs Vital Sign Reading Time Taken Comments Blood Pressure 123/78 11/08/2022 9:35 PM DOWN FILLER Pulse 52 11/08/2022 9:35 PM DOWN FILLER Temperature 36.7 C (98 F) 11/08/2022 3:39 PM DOWN FILLER Respiratory Rate 14 11/08/2022 9:35 PM DOWN FILLER Oxygen Saturation 98% 11/08/2022 9:35 PM DOWN FILLER Inhaled Oxygen Concentration - - Weight 54.4 kg (120 lb) 11/08/2022 3:39 PM DOWN FILLER Height 152.4 cm (5') 11/08/2022 3:39 PM DOWN FILLER Body Mass Index 23.44 11/08/2022 3:39 PM DOWN FILLER Plan of Treatment Not on file Insurance [facility] Care Teams Medical Coder Relationship Specialty Start Date End Date Sol Koch PA [address] [place] [address] PCP - General Physician Rn Acls 11/08/22
--- OUTSIDE RECORDS SUMMARY | 2025-03-06 12:52 | XMS_ITS | Clinical Summary ---
Author Organization [facility] Address [address] [place] [address] Care Team Providers Care Boat Assembler Name Role Phone Sol Koch Primary Care Provider [phone] Allergies No known active allergies Medications dicyclomine [...] Comments Blood Pressure 123/78 11/08/2022 9:35 PM MUSKRAT TRAPPER Pulse 52 11/08/2022 9:35 PM MUSKRAT TRAPPER Temperature 36.7 C (98 F) 11/08/2022 3:39 PM MUSKRAT TRAPPER Respiratory Rate 14 11/08/2022 9:35 PM MUSKRAT TRAPPER Oxygen Saturation 98% 11/08/2022 9:35 PM MUSKRAT TRAPPER Inhaled Oxygen Concentration - - Weight 54.4 kg (120 lb) 11/08/2022 3:39 PM MUSKRAT TRAPPER Height 152.4 cm (5') 11/08/2022 3:39 PM MUSKRAT TRAPPER Body Mass Index 23.44 11/08/2022 3:39 PM MUSKRAT TRAPPER Plan of Treatment Health Maintenance Due Date Last Done Comments Cervical Cancer Screening 1999 Depression Screening 1999 Hepatitis C Screening 1999 HPV Vaccines (1 - 3-dose series) 2014 Regular Well Visit/Exam 18-64 2017 DTaP/Tdap/Td Vaccine (7 - Td or Tdap) 08/10/2023 08/10/2013, 05/28/2005, 07/19/2001, Additional history exists Influenza Vaccine (#1) 2024 09/27/2020 Pneumococcal vaccine <65 Completed 04/07/2001, 10/23 Hepatitis B Screening Completed 10/11/2001 , 04/07/2001, 02/23/2001 Varicella Vaccines Completed 08/10/2013, 11/10/2000 Insurance [facility] Care Teams Boat Assembler Relationship Specialty Start Date End Date Sol Kohc PA [address] [place] [address] PCP - General Physician Inspector Paper Products 11/08/22
--- NOTE | 2025-03-06 13:11 | ED.NAVMDI ---
HPI - Nausea/Vomiting/Diarrhea General Chief complaint: Nausea/Vomiting/Diarrhea Stated complaint: Nausea, vomiting- stomach on fire Time Seen by Provider: 03/06/25 12:05 History of Present Illness HPI Narrative: Patient for last few days has had nausea, vomiting, burning epigastric pain, this has been going on and off for months seems to be worse after certain spicy foods she does also smoke marijuana. Hot showers help her feel better Related Data Home Medications ?Medication ?Instructions ?Recorded ?Confirmed ?Last Taken ?Type bupropion HCl 300 mg 24 hr tablet, 300 mg PO DAILY 12/25/23 09/12/24 06/13/24 10:00 History extended release buspirone 5 mg tablet 15 mg PO DAILY 05/12/24 09/12/24 06/13/24 10:00 History olanzapine 10 mg-samidorphan 10 mg 1 tablet PO DAILY 06/05/24 09/12/24 Unknown History tablet (Lybalvi) Allergies Allergy/AdvReac Type Severity Reaction Status Date / Time No Known Allergies Allergy Verified 03/06/25 11:39 Review of Systems Review of Systems: All systems reviewed & are unremarkable except as noted in HPI and below PMFSH Past Medical History Medical History (Updated 03/06/25 @ 14:03 by Gracie Mehta MD) GERD (gastroesophageal reflux disease) Anxiety Surgical History Surgical History No significant past surgical history Family History Family History Other Breast cancer Grandparent Cancer of lung Social History Social History Social History: Primary care provider: Jonna HENDERSON Years smoked: 3 Smoking status: Never smoker Tobacco type: e-cigarettes/vaping Alcohol intake: current Alcohol use details: She drinks an alcoholic beverage once every couple of months. Substance use: current Substance use type: prescription drug Other substance usage details: marijuana help with appetite 2-3 week Living arrangements: with family Additional living arrangements comments: She lives with her boyfriend and her 2 older sisters. Her younger brother and sister live with other family members. She reports that her sisters are the family members that watch out for her. Occupation/Education: occupation Additional occupation/education comments: She works at [employer]. She wants to start going to school and is interested in studying either nursing or law. Gender identity (if verbalized by the patient): Female Sexual Orientation (if Verbalized by the Patient): Straight or Heterosexual Spiritual care concerns: Yes Exam Narrative: EXAMINATION OF ORGAN SYSTEMS/BODY AREAS: Constitutional: Vital signs per nursing GENERAL: Appears uncomfortable in nauseous HEAD: Normal with no signs of head trauma. EYES: EOMI, conjunctiva normal ENT: Hearing grossly intact LUNGS: Nonlabored breathing. HEART: [Regular rate and rhythm] ABD: [Soft], [nontender to palpation] EXT: Normal range of motion SKIN: [No rashes or lesions.] NEURO: [Alert and oriented x 3. No gross focal sensory or strength deficits.] PSYCH: Normal affect Course Vital Signs Vital signs: Vital Signs Temperature 97.8 F 03/06/25 11:41 Pulse Rate 85 03/06/25 11:41 Respiratory Rate 16 03/06/25 11:41 Blood Pressure 134/77 03/06/25 11:41 Pulse Oximetry 100 03/06/25 11:41 Oxygen Delivery Room Air 03/06/25 11:41 Temperature 97.8 F 03/06/25 11:41 Pulse Rate 71 03/06/25 14:12 Respiratory Rate 16 03/06/25 14:12 Blood Pressure 121/69 03/06/25 14:12 Pulse Oximetry 98 03/06/25 14:12 Oxygen Delivery Room Air 03/06/25 11:41 MDM - Nausea/Vomiting/Diarrhea MDM Narrative Medical decision making narrative: Patient presenting with nausea vomiting epigastric pain, chronic marijuana exam, symptoms worse with spicy foods, I suspect are the GERD/PUD versus cannabinoid hyperemesis, labs obtained showing leukocytosis likely from her throwing up, low potassium which is repleted, possible UTI given ceftriaxone, she is treated with several rounds of medications including Zofran, Pepcid, then Haldol, Protonix, Maalox, and on re-evaluation she feels much better, symptoms completely resolved, she is ready to go home. Repeat abdomen normal and no further emesis. Return precautions discussed, dietary restrictions as well as cessation of marijuana discussed. Patient agreeable to this plan, she already has follow-up with GI coming up. Scripts for symptomatic management and UTI sent to pharmacy Lab Data 03/06/25 12:04 03/06/25 12:04 Labs: Lab Results 03/06/25 03/06/25 Range/Units 12:02 12:04 WBC 15.5 H (4.5-10.0) K/mm3 RBC 5.12 (4.2-5.4) M/mm3 Hgb 14.7 (12.0-15.0) g/dL Hct 45.8 (37.0-47.0) % MCV 89.5 (80-100) fl MCH 28.7 (26-34) pg MCHC 32.1 (32-36) g/dl RDW 13.9 (11.5-14.5) % Plt Count 396 H (150-375) k/mm3 MPV 9.8 (7.4-10.4) fl Immature Gran % (Auto) 0.3 (0-0.5) % Neut % (Auto) 79.5 H (45.5-73.1) % Lymph % (Auto) 11.1 L (18.3-44.2) % [place] % (Auto) 8.9 H (2.6-8.5) % Eos % (Auto) 0.0 (0-4.4) % Baso % (Auto) 0.2 (0.2-1.2) % Lymph # (Auto) 1.72 (0.9-3.2) K/mm3 [place] # (Auto) 1.4 H (0.1-0.6) K/mm3 Eos # (Auto) 0.0 (0-0.3) K/mm3 Baso # (Auto) 0.0 (0.0-0.1) K/mm3 Abs Immat Gran (auto) 0.05 H (0.00-0.031) K/mm3 Absolute Neuts (auto) 12.4 H (1.3-6.7) K/mm3 Absolute Nucleated RBC 0.000 (0.0-0.012) K/mm3 Nucleated RBC % 0.0 (0.0-0.2) % Sodium 138 (137-145) mmol/L Potassium 3.1 L (3.4-5.0) mmol/L Chloride 96 L (98-107) mmol/L Carbon Dioxide 28 (22-30) mmol/L Anion Gap 14 H (4-12) mmol/L BUN 11 (7-17) mg/dL Creatinine 0.83 (0.7-1.0) mg/dL Estim Creat Clear Calc 87 ml/min Estimated GFR > 60 (59 - ) Glucose 122 H (65-110) mg/dL Calcium 9.8 (8.4-10.2) mg/dL Total Bilirubin 0.6 (0.2-1.3) mg/dL AST 26 (14-36) U/L ALT 25 (6-35) U/L Alkaline Phosphatase 90 (38-126) U/L Total Protein 9.0 H (6.3-8.2) g/dL Albumin 5.3 H (3.5-5.1) g/dL Lipase 98 (23-300) U/L Urine Color Dark yellow (Yellow) Urine Appearance Cloudy H (Clear) Urine pH 6.0 (5.0-9.0) Ur Specific [place] 1.023 (1.001-1.035) Urine Protein 2+ H (Negative) mg/dL Urine Glucose (UA) Negative (Negative) mg/dL Urine Ketones 1+ H (Negative) mg/dL Ur Blood (Man) 1+ H (Negative) Urine Nitrate Negative (Negative) Urine Bilirubin Negative (Negative) Urine Urobilinogen 0.2 (<2.0) mg/dL Add Ur Microanalysis Reviewed Leukocyte Esterase Rfl Negative (Negative) JIGAR/UL Urine RBC 11-20 H (0-2) /hpf Urine WBC 11-20 H (0-3) /hpf Ur Squamous Epith Cells Moderate (Few) /hpf Urine Bacteria Rare /hpf Urine Casts >20 Hyaline Casts Present (None) /lpf POC Urine HCG, Qual Negative (Negative) Discharge Plan Discharge Clinical Impression: Nausea and vomiting Qualifiers: Vomiting type: bilious vomiting Qualified Code(s): R11.14 - Bilious vomiting Patient Disposition: Home Condition: Stable Instructions: Antibiotic Form, Diet for Stomach Ulcers and Gastritis (ED), Acute Nausea and Vomiting (ED) Additional Instructions: Please follow up with your GI doctor as scheduled; avoid marijuana or any spicy/fried foods, alcohol, or caffeine; and take the meds as prescribed. You can always return if you feel worrse. Patient Language: Citizen Of [place] Prescriptions: New famotidine 20 mg tablet 20 mg PO DAILY Qty: 30 0RF alum-mag hydroxide-simeth [Maalox Advanced] 200-200-20 mg/5 mL suspension 10 ml PO QID PRN (Reason: dyspepsia) Qty: 200 0RF Rx Instructions: administer between meals and at bedtime ondansetron 4 mg tablet,disintegrating 4 mg PO Q8H PRN (Reason: nausea and vomiting) Qty: 14 0RF nitrofurantoin monohyd/m-cryst [Macrobid] 100 mg capsule 100 mg PO Q12H 5 Days Qty: 10 0RF Rx Instructions: must administer with a meal/food No Action bupropion HCl 300 mg tablet extended release 24 hr 300 mg PO DAILY buspirone 5 mg tablet 15 mg PO DAILY omeprazole 40 mg capsule,delayed release(DR/EC) 40 mg PO DAILY Qty: 30 4RF Lybalvi 10-10 mg tablet 1 tablet PO DAILY Follow-up/Referrals: UNKNOWN,DOCTOR [Primary Care Provider] -
--- OUTSIDE RECORDS SUMMARY | 2025-03-06 13:13 | XMS_ITS | Clinical Summary ---
Author Organization [email or web address] Address [address] [facility] [place] [address] Care Team Providers Care Supervisor Shuttle Fitting Name Role Phone Sol Koch PA-C Primary Care Provider + Source Comments [email or web address],non-owned Affiliates and Associated Physician Practices is amultiple site organization consisting of ambulatory clinics and hospital sitesin [place], [place], [place] and [place]. This disclosure is being madepursuant to the Care Everywhere program and may not contain all information available regarding this patient. Last updated 18.[email or web address] Allergies No known active allergies Medications * [...] Sex Assigned at Female 12/15/2022 1:14 PM MANAGER PLANNING Legal Sex Female 11:48 AM MANAGER PLANNING Gender Identity Female 12/15/2022 1:14 PM MANAGER PLANNING Sexual Orientation Straight 12/15/2022 1: 14 PM MANAGER PLANNING Last Filed Vital Signs Vital Sign Reading Time Taken Comments Blood Pressure 104/60 02/10/2024 2:20 PM CDT Pulse 73 02/10/2024 2:20 PM CDT Temperature 36.7 C (98.1 F) 01/26/2023 8:01 AM MANAGER PLANNING Respiratory Rate 18 01/26/2023 8:01 AM MANAGER PLANNING Oxygen Saturation 98% 02/10/2024 2:20 PM CDT Inhaled Oxygen Concentration - - Weight 46.2 kg (101 lb 12.8 oz) 01/21/2023 1:04 PM MANAGER PLANNING Height 157.5 cm (5' 2 ) 01/20/2023 3:20 PM MANAGER PLANNING Body Mass Index 18.62 01/20/2023 3:20 PM MANAGER PLANNING Plan of Treatment Health Maintenance Due Date [...] Phone Billing Address Personal/Family [address] [place] [address] [facility] SELF PAY NO INSURANCE Member Subscriber Plan / Payer (Ef fective for All Dates) Name:Aurelio Lepe Member ID:Not on file Relation to Subscriber:Not on file Name:AURELIO LEPE Subscriber ID:Not on file Address: [address] [place] [phone] Payer ID:Not on file Group ID:Not on file Type:Self Pay Address: [place], [place] * Guarantor: YAIMA LEPENEY Account Type Relation to Patient Date of Phone Billing Address Personal/Family [address] [place] [phone] [facility] SELF PAY NO INSURANCE Member Subscriber Plan / Payer (Ef fective for All Dates) Name:Aurelio Lepe Member ID:Not on file Relation to Subscriber:Not on file Name:AURELIO LEPE Subscriber ID:Not on file Address: [address] [place] [phone] Payer ID:Not on file Group ID:Not on file Type:Self Pay Address: [place], [place] * Guarantor: AURELIO LEPE Account Type Relation to Patient Date of Phone Billing Address Personal/Family [address] [place] [phone] [facility] SELF PAY NO INSURANCE Member Subscriber Plan / Payer (Ef fective for All Dates) Name:Aurelio Lepe Member ID:Not on file Relation to Subscriber:Not on file Name:AURELIO LEPE Subscriber ID:Not on file Address: [address] [place] [phone] Payer ID:Not on file Group ID:Not on file Type:Self Pay Address: [place], [place] [employer] [facility] Advance Directives * Full Code (Latest Code Status on File) Date Activated Date Inactivated Comments 01/20/2023 5:02 PM 01/26/2023 3:17 PM Care Teams Supervisor Shuttle Fitting Relationship Specialty Start Date End Date Sol Koch PA-C [address] [place] [phone] PCP - General Physician Metal Fabricator Apprentice 12/15/22
--- OUTSIDE RECORDS SUMMARY | 2025-03-06 13:14 | XMS_ITS | Referral Summary ---
Author Organization [facility] Address [address] [place] [address] Care Team Providers Care Watch Inspector Name Role Phone Sol Koch Primary Care Provider [phone] Allergies No known active allergies Medications dicyclomine [...] Comments Blood Pressure 123/78 11/08/2022 9:35 PM APPLICATION SYSTEMS ENGINEER Pulse 52 11/08/2022 9:35 PM APPLICATION SYSTEMS ENGINEER Temperature 36.7 C (98 F) 11/08/2022 3:39 PM APPLICATION SYSTEMS ENGINEER Respiratory Rate 14 11/08/2022 9:35 PM APPLICATION SYSTEMS ENGINEER Oxygen Saturation 98% 11/08/2022 9:35 PM APPLICATION SYSTEMS ENGINEER Inhaled Oxygen Concentration - - Weight 54.4 kg (120 lb) 11/08/2022 3:39 PM APPLICATION SYSTEMS ENGINEER Height 152.4 cm (5') 11/08/2022 3:39 PM APPLICATION SYSTEMS ENGINEER Body Mass Index 23.44 11/08/2022 3:39 PM APPLICATION SYSTEMS ENGINEER Plan of Treatment Not on file Insurance [facility] Care Teams Watch Inspector Relationship Specialty Start Date End Date Sol Koch PA [address] [place] [address] PCP - General Physician Bio Medical Technician 11/08/22
--- OUTSIDE RECORDS SUMMARY | 2025-03-06 13:14 | XMS_ITS | Clinical Summary ---
Author Organization [facility] Address [address] [place] [address] Care Team Providers Care Business Editor Name Role Phone Sol Koch Primary Care Provider [phone] Allergies No known active allergies Medications dicyclomine [...] Comments Blood Pressure 123/78 11/08/2022 9:35 PM SALES ESTIMATOR Pulse 52 11/08/2022 9:35 PM SALES ESTIMATOR Temperature 36.7 C (98 F) 11/08/2022 3:39 PM SALES ESTIMATOR Respiratory Rate 14 11/08/2022 9:35 PM SALES ESTIMATOR Oxygen Saturation 98% 11/08/2022 9:35 PM SALES ESTIMATOR Inhaled Oxygen Concentration - - Weight 54.4 kg (120 lb) 11/08/2022 3:39 PM SALES ESTIMATOR Height 152.4 cm (5') 11/08/2022 3:39 PM SALES ESTIMATOR Body Mass Index 23.44 11/08/2022 3:39 PM SALES ESTIMATOR Plan of Treatment Health Maintenance Due Date Last Done Comments Cervical Cancer Screening 1999 Depression Screening 1999 Hepatitis C Screening 1999 HPV Vaccines (1 - 3-dose series) 2014 Regular Well Visit/Exam 18-64 2017 DTaP/Tdap/Td Vaccine (7 - Td or Tdap) 08/10/2023 08/10/2013, 05/28/2005, 07/19/2001, Additional history exists Influenza Vaccine (Season Ended) 2025 09/27/20 Pneumococcal vaccine <65 Completed 04/07/2001, 10/23 Hepatitis B Screening Completed 10/11/2001 , 04/07/2001, 02/23/2001 Varicella Vaccines Completed 08/10/2013, 11/10/2000 Insurance [facility] Care Teams Business Editor Relationship Specialty Start Date End Date Sol Koch PA [address] [place] [address] PCP - General Physician Threader Operator 11/08/22
[2025-03-06] MEDS: HALOPERIDOL LACTATE 5 MG/ML VIAL 2.5 MG IV PUSH (13:29)
[2025-03-06] MEDS: MAG HYDROX/AL HYDROX/SIMETH 30 ML UDC PO (13:30)
[2025-03-06] MEDS: POTASSIUM CHLORIDE 20 MEQ ER TABLET 40 MEQ PO (13:31)
[2025-03-06] MEDS: PANTOPRAZOLE SODIUM IV 40 MG VIAL IV PUSH (13:32)
[2025-03-06 14:12] VITALS: BP 121/69; PULSE 71; RESP 16; O2SAT 98
== END 2025-03-06 14:12 | disposition home or self-care (01) ==
PROVIDERS: Emergency Medicine; Emergency Provider Emergency Medicine
DX: R11.14 Bilious vomiting (principal); K21.9 Gastro-esophageal reflux disease without esophagitis; F41.9 Anxiety disorder, unspecified; Z79.899 Other long term (current) drug therapy
CPT/HCPCS: 36415; 80053; 81001; 81025; 83690; 85025; 96365; 96375; 99284; A9270; J0696; J1630; J2405; J2470

== ENCOUNTER 2025-08-18 14:24 | Emergency (ER) | payer OTHER, SELFPAY ==
[2025-08-18] VITALS (8 sets, daily range): BP systolic 121–142; BP diastolic 73–86; PULSE 74–100; RESP 13–25; TEMP 36.4; O2SAT 99–100
--- OUTSIDE RECORDS SUMMARY | 2025-08-18 14:27 | XMS_ITS | Clinical Summary ---
Author Organization [facility] Address [address] [place] [address] Care Team Providers Care Product Tester Name Role Phone Sol Koch Primary Care Provider [phone] Allergies No known active allergies Medications dicyclomine [...] Comments Blood Pressure 123/78 11/08/2022 9:35 PM ELECTRICAL PROSPECTING OBSERVER Pulse 52 11/08/2022 9:35 PM ELECTRICAL PROSPECTING OBSERVER Temperature 36.7 C (98 F) 11/08/2022 3:39 PM ELECTRICAL PROSPECTING OBSERVER Respiratory Rate 14 11/08/2022 9:35 PM ELECTRICAL PROSPECTING OBSERVER Oxygen Saturation 98% 11/08/2022 9:35 PM ELECTRICAL PROSPECTING OBSERVER Inhaled Oxygen Concentration - - Weight 54.4 kg (120 lb) 11/08/2022 3:39 PM ELECTRICAL PROSPECTING OBSERVER Height 152.4 cm (5') 11/08/2022 3:39 PM ELECTRICAL PROSPECTING OBSERVER Body Mass Index 23.44 11/08/2022 3:39 PM ELECTRICAL PROSPECTING OBSERVER Plan of Treatment Health Maintenance Due Date Last Done Comments Cervical Cancer Screening 1999 Depression Screening 1999 Hepatitis C Screening 1999 HPV Vaccines (1 - 3-dose series) 2014 Regular Well Visit/Exam 18-64 2017 DTaP/Tdap/Td Vaccine (7 - Td or Tdap) 08/10/2023 08/10/2013, 05/28/2005, 07/19/2001, Additional history exists Influenza Vaccine (#1) 2025 09/27/2020 Pneumococcal vaccine <65 Completed 04/07/2001, 10/23 Hepatitis B Screening Completed 10/11/2001 , 04/07/2001, 02/23/2001 Varicella Vaccines Completed 08/10/2013, 11/10/[address] [facility] Care Teams Product Tester Relationship Specialty Start Date End Date Sol Koch PA [address] [place] [address] PCP - General Physician Corral Boss 11/08/22
--- OUTSIDE RECORDS SUMMARY | 2025-08-18 14:27 | XMS_ITS | Patient Health Record ---
Author Organization [facility] Address [address] [place] [address] Care Team Providers Care Psychiatric Aide Name Role Phone Poppy Cano Primary Care Provider [phone] Allergies No Known Allergies Reason For Referral No Information Medications Medication SIG (Take, Route, Frequency, Duration) Notes Start Date End Date Status Mirtazapine 30 MG 1 tablet at bedtime Orally Once a day; Duration: 30 days Active Pantoprazole Sodium 40 MG 1 tablet Orall y Once a day; Duration: 30 days Active risperiDONE 3 MG TAKE 1 TABLET BY ALLEGRA TH EVERY DAY; Duration: 30 Active Omeprazole 20 MG 1 capsule 30 minutes before morning meal Orally Once a day; Duration: 30 day(s) Not-Taking Dicyclomine HCl 10 MG 1 tablet as needed Orally Three times a day Not-Taking Ivabradine HCl 5 MG 2 tablet as needed Orally Twice a day Not-Taking Ondansetron 4 MG 1 tablet on the tong ue and allow to dissolve Orally every 4 hours as needed Not-Taking PARoxetine HCl 10 MG 1 tablet in the mor judy Orally Once a day; Duration: 30 day(s) Not-Taking Social History Sex Assigned At : Social History Observation Description Sex Assigned At Female Problems Problem Type SNOMED Code ICD Code Onset Dates Problem Status W/U Status Risk Notes Problem Bipolar 1 disorder (843428043) Bipolar 1 disorder (F31.9) Active confirmed Plan Of Treatment No Information Insurance Providers Payer Name Payer Address Payer Phone Subscriber Number Group Number Insured Name Patient Relationship to Insured Coverage Start Date Coverage End Date [facility] Att Claims Department [address] [facility] [place] [address] [phone] [id number] Luciana Lepe Self - patient is the insured 3 Medical (General) History Surgical History Surgery Date(Month/Year) Hospitalization History Reason Date(Month/Year) - [facility] 01/2023
--- OUTSIDE RECORDS SUMMARY | 2025-08-18 14:27 | XMS_ITS | Clinical Summary ---
Author Organization [facility] Address [address] [place] [address] Care Team Providers Care Folding Machine Tender Name Role Phone Sol Koch PA-C Primary Care Provider + Source Comments [facility],non-owned Affiliates and Associated Physician Practices is amultiple site organization consisting of ambulatory clinics and hospital sitesin [place], [place], [place] and [place]. This disclosure is being madepursuant to the Care Everywhere program and may not contain all information available regarding this patient. Last updated 18.[facility] Allergies No known active allergies Medications * [...] Sex Assigned at Female 12/15/2022 1:14 PM PACKAGE LINER Legal Sex Female 11:48 AM PACKAGE LINER Gender Identity Female 12/15/2022 1:14 PM PACKAGE LINER Sexual Orientation Straight 12/15/2022 1: 14 PM PACKAGE LINER Last Filed Vital Signs Vital Sign Reading Time Taken Comments Blood Pressure 104/60 02/10/2024 2:20 PM CDT Pulse 73 02/10/2024 2:20 PM CDT Temperature 36.7 C (98.1 F) 01/26/2023 8:01 AM PACKAGE LINER Respiratory Rate 18 01/26/2023 8:01 AM PACKAGE LINER Oxygen Saturation 98% 02/10/2024 2:20 PM CDT Inhaled Oxygen Concentration - - Weight 46.2 kg (101 lb 12.8 oz) 01/21/2023 1:04 PM PACKAGE LINER Height 157.5 cm (5' 2) 01/20/2023 3:20 PM PACKAGE LINER Body Mass Index 18.62 01/20/2023 3:20 PM PACKAGE LINER Plan of Treatment Health Maintenance Due Date Last Done Comments HPV VACCINE (1 - 3-dose series) 2014 HEPATITIS C SCREENING 09/25/2017 DTAP/TDAP/TD VACCINES (1 - Tdap) 2018 HEPATITIS B VACCINE (1 of 3 - 19+ 3-dose series) 2018 CHLAMYDIA/GONORRHEA SCREENING 10/12/2024, 08/18/2022 DEPRESSION SCREENING 11/22/2024 COVID-19 VACCINE (1 - 2023-2 5 season) 2025 INFLUENZA VACCINE (#1) 2025 09/27/2020 PAP SMEAR 10/12/2026 10/12/2023 ZOSTER VACCINE (1 of 2) 2049 HIV [...] Phone Billing Address Personal/Family [address] [place] [address] [facility] SELF PAY NO INSURANCE Member Subscriber Plan / Payer (Ef fective for All Dates) Name:Aurelio Lepe Member ID:Not on file Relation to Subscriber:Not on file Name:AURELIO LEPE Subscriber ID:Not on file Address: [address] [place] [phone] Payer ID:Not on file Group ID:Not on file Type:Self Pay Address: [place], [place] * Guarantor: YAIMA LEPENEY Account Type Relation to Patient Date of Phone Billing Address Personal/Family [address] [place] [phone] [facility] SELF PAY NO INSURANCE Member Subscriber Plan / Payer (Ef fective for All Dates) Name:Aurelio Lepe Member ID:Not on file Relation to Subscriber:Not on file Name:AURELIO LEPE Subscriber ID:Not on file Address: [address] [place] [phone] Payer ID:Not on file Group ID:Not on file Type:Self Pay Address: [place], [place] * Guarantor: AURELIO LEPE Account Type Relation to Patient Date of Phone Billing Address Personal/Family [address] [place] [phone] [facility] SELF PAY NO INSURANCE Member Subscriber Plan / Payer (Ef fective for All Dates) Name:Aurelio Lepe Member ID:Not on file Relation to Subscriber:Not on file Name:AURELIO LEPE Subscriber ID:Not on file Address: [address] [place] [phone] Payer ID:Not on file Group ID:Not on file Type:Self Pay Address: [place], [place] [employer] [facility] Advance Directives * Full Code (Latest Code Status on File) Date Activated Date Inactivated Comments 01/20/2023 5:02 PM 01/26/2023 3:17 PM Care Teams Folding Machine Tender Relationship Specialty Start Date End Date Sol Koch PA-C [address] [place] [phone] PCP - General Physician Electrical Superintendent 12/15/22
--- NOTE | 2025-08-18 15:37 | PC.NURSE ---
patient states she hasn't been able to eat or drink in at least a week. patient states that she has to get into shower after she eats to keep anything down. c/o constipation for last week. last BM yesterday, states she is not having flatulence. denies abdominal surgeries.
--- NOTE | 2025-08-18 16:18 | ED.NAVMDI ---
HPI - Nausea/Vomiting/Diarrhea General Chief complaint: Nausea/Vomiting/Diarrhea Stated complaint: N/V Time Seen by Provider: 08/18/25 15:36 History of Present Illness HPI Narrative: Patient is a 24-year-old female who presents to the ER with complaints of vomiting for the past week and a half. She also endorses burning to her belly below her sternum. Patient reports her last bowel movement was yesterday and it was small. She reports her last menstrual period was July 23, 2025. Patient denies any urinary symptoms, back pain, or recent fevers. She endorses a history of anxiety, psychosis, depression, and bipolar disorder. Patient denies any recent alcohol use, and endorses intermittent marijuana use. Related Data Home Medications ?Medication ?Instructions ?Recorded ?Confirmed ?Last Taken ?Type bupropion HCl 300 mg 24 hr tablet, 300 mg PO DAILY 12/25/23 07/17/25 06/13/24 10:00 History extended release buspirone 5 mg tablet 15 mg PO DAILY 05/12/24 07/17/25 06/13/24 10:00 History cariprazine 1.5 mg capsule 1.5 mg PO DAILY 07/17/25 07/17/25 Unknown History (Vraylar) Allergies Allergy/AdvReac Type Severity Reaction Status Date / Time No Known Allergies Allergy Verified 07/17/25 14:06 Review of Systems Review of Systems: All systems reviewed & are unremarkable except as noted in HPI and below PMFSH Past Medical History Medical History (Updated 08/18/25 @ 18:36 by Alma Bravo APRN) GERD (gastroesophageal reflux disease) Anxiety Surgical History Surgical History No significant past surgical history Family History Family History Other Breast cancer Grandparent Cancer of lung Social History Social History Social History: Primary care provider: Jonna HENDERSON Years smoked: 3 Smoking status: Never smoker Tobacco type: e-cigarettes/vaping Alcohol intake: current Alcohol use details: She drinks an alcoholic beverage once every couple of months. Substance use: current Substance use type: prescription drug Other substance usage details: marijuana help with appetite 2-3 week Living arrangements: with family Additional living arrangements comments: She lives with her boyfriend and her 2 older sisters. Her younger brother and sister live with other family members. She reports that her sisters are the family members that watch out for her. Occupation/Education: occupation Additional occupation/education comments: She works at [employer]. She wants to start going to school and is interested in studying either nursing or law. Gender identity (if verbalized by the patient): Female Sexual Orientation (if Verbalized by the Patient): Straight or Heterosexual Spiritual care concerns: Yes Exam Narrative: GENERAL: Well appearing, well-nourished, non-toxic, in no acute distress. HEAD: Normocephalic, atraumatic. NECK: Supple. No adenopathy, no masses. RESPIRATORY: Airway patent, respirations nonlabored. Clear to auscultation bilaterally, no rales, rhonchi, wheezing. CARDIOVASCULAR: Mild tachycardia without murmurs, rubs, or gallops. Peripheral pulses 2+ and equal bilaterally. ABDOMINAL: Soft, nontender, nondistended, no hepatosplenomegaly. Normoactive BS. MUSCULOSKELETAL: Moves all extremities. Strength/ROM intact without gross deformities. SKIN: Warm, dry, pallor. No rashes. NEURO: A&O X3. Speech clear. Cranial nerves II-XII intact. No ataxic movements. PSYCHIATRIC: Anxious Course Vital Signs Vital signs: Vital Signs Temperature 36.4 C L 08/18/25 14: Pulse Rate 89 08/18/25 14: Respiratory Rate 18 08/18/25 14:27 Blood Pressure 136/77 08/18/25 14:27 Pulse Oximetry 99 08/18/25 14:27 Temperature 36.4 C L 08/18/25 14: Pulse Rate 82 08/18/25 17:24 Respiratory Rate 16 08/18/25 17:24 Blood Pressure 122/79 08/18/25 17:24 Pulse Oximetry 100 08/18/25 17:24 MDM - Nausea/Vomiting/Diarrhea MDM Narrative Medical decision making narrative: Patient is a 24-year-old female who presents to the ER with complaints of vomiting for the past week and a half. She also endorses burning to her belly below her sternum. Patient reports her last bowel movement was yesterday and it was small. She reports her last menstrual period was July 23, 2025. Patient denies any urinary symptoms, back pain, or recent fevers. She endorses a history of anxiety, psychosis, depression, and bipolar disorder. Patient denies any recent alcohol use, and endorses intermittent marijuana use. Labs Ordered: CBC, CMP, lipase, UA, UDS Imaging Ordered: None necessary Medications Ordered: 1 L normal saline IV, GI cocktail Results: Patient's white blood cell count of 12.7, platelet count of 383. Her chemistries 135, BUN of 6. Patient's urinalysis indicates patient has a UTI. Diagnosis: Urinary tract infection, GERD Patient Education/Shared MDM: Results of lab work shared with patient. She endorses improvement of symptoms following GI cocktail. Patient strongly advised to maintain hydration status upon discharge and follow-up with her PCP in the next 2-3 days. She will be discharged home with a prescription for Pepcid, Bactim, and Pyridium. Strict return precautions provided. Patient verbalized understanding and is in agreement with plan. Vital signs stable at time of discharge. All questions answered. Differential Diagnosis Differential diagnosis: Likely gastroenteritis, drug-induced nausea and vomiting, dehydration and other (Urinary tract infection, GERD) Lab Data Attestation: I reviewed the patient's lab results. 08/18/25 16:02 08/18/25 16:02 Labs: Lab Results 08/18/25 08/18/25 08/18/25 Range/Units 16:01 16:02 16:22 WBC 12.7 H (4.5-10.0) K/mm3 RBC 4.74 (4.2-5.4) M/mm3 Hgb 14.0 (12.0-15.0) g/dL Hct 43.1 (37.0-47.0) % MCV 90.9 (80-100) fl MCH 29.5 (26-34) pg MCHC 32.5 (32-36) g/dl RDW 14.0 (11.5-14.5) % Plt Count 383 H (150-375) k/mm3 MPV 9.6 (7.4-10.4) fl Immature Gran % (Auto) 0.4 (0-0.5) % Neut % (Auto) 64.4 (45.5-73.1) % Lymph % (Auto) 25.9 (18.3-44.2) % Dolores % (Auto) 8.5 (2.6-8.5) % Eos % (Auto) 0.4 (0-4.4) % Baso % (Auto) 0.4 (0.2-1.2) % Lymph # (Auto) 3.28 H (0.9-3.2) K/mm3 Dolores # (Auto) 1.1 H (0.1-0.6) K/mm3 Eos # (Auto) 0.1 (0-0.3) K/mm3 Baso # (Auto) 0.1 (0.0-0.1) K/mm3 Abs Immat Gran (auto) 0.05 H (0.00-0.031) K/mm3 Absolute Neuts (auto) 8.1 H (1.3-6.7) K/mm3 Absolute Nucleated RBC 0.000 (0.0-0.012) K/mm3 Nucleated RBC % 0.0 (0.0-0.2) % Sodium 135 L (137-145) mmol/L Potassium 3.4 (3.4-5.0) mmol/L Chloride 99 (98-107) mmol/L Carbon Dioxide 27 (22-30) mmol/L Anion Gap 9 (4-12) mmol/L BUN 6 L D (7-17) mg/dL Creatinine 0.74 (0.7-1.0) mg/dL Estim Creat Clear Calc 86 ml/min Estimated GFR > 60 (59 - ) Glucose 94 (65-110) mg/dL Calcium 9.8 (8.4-10.2) mg/dL Total Bilirubin 0.5 (0.2-1.3) mg/dL AST 33 (14-36) U/L ALT 23 (6-35) U/L Alkaline Phosphatase 74 (38-126) U/L Total Protein 8.0 (6.3-8.2) g/dL Albumin 4.6 (3.5-5.1) g/dL Lipase 41 (23-300) U/L Urine Color Dark yellow (Yellow) Urine Appearance Cloudy H (Clear) Urine pH 6.0 (5.0-9.0) Ur Specific Micro 1.027 (1.001-1.035) Urine Protein Trace (Negative) mg/dL Urine Glucose (UA) Negative (Negative) mg/dL Urine Ketones Trace H (Negative) mg/dL Ur Blood (Man) Negative (Negative) Urine Nitrate Negative (Negative) Urine Bilirubin 1+ H (Negative) Urine Urobilinogen 1.0 (<2.0) mg/dL Add Ur Microanalysis Reviewed Leukocyte Esterase Rfl Trace H (Negative) JIGAR/UL Urine RBC 0-2 (0-2) /hpf Urine WBC 6-10 H (0-3) /hpf Ur Squamous Epith Cells Moderate (Few) /hpf Urine Bacteria Rare /hpf Urine Casts 0-2 POC Urine HCG, Qual Negative (Negative) Urine Opiates Screen Negative (Negative) Urine Methadone Screen Negative (Negative) Ur Barbiturates Screen Negative (Negative) Ur Phencyclidine Scrn Negative (Negative) Ur Amphetamine Screen Negative (Negative) U Benzodiazepines Scrn Negative (Negative) Urine Cocaine Screen Negative (Negative) U Cannabinoids Screen Positive A (Negative) Discharge Plan Discharge Clinical Impression: Urinary tract infection, Epigastric pain GERD (gastroesophageal reflux disease) Qualifiers: Esophagitis presence: esophagitis presence not specified Qualified Code(s): K21.9 - Gastro-esophageal reflux disease without esophagitis Patient Disposition: Home Condition: Stable Instructions: Antibiotic Form, Urinary Tract Infection in Women (ED) Additional Instructions: Please return to the ER with any worsening symptoms. Follow-up with primary care provider in the next 2-3 days. Take all medications as prescribed. Complete your full dose of antibiotics. Please remember to drink lots of water. Patient Language: Frisian Prescriptions: New sulfamethoxazole-trimethoprim [Bactrim DS] 800-160 mg tablet 1 tablet PO Q12H 5 Days Qty: 10 0RF phenazopyridine [Pyridium] 200 mg tablet 200 mg PO TID Qty: 6 0RF famotidine [Pepcid] 40 mg tablet 40 mg PO BID Qty: 30 0RF No Action bupropion HCl 300 mg tablet extended release 24 hr 300 mg PO DAILY buspirone 5 mg tablet 15 mg PO DAILY Vraylar 1.5 mg capsule 1.5 mg PO DAILY omeprazole 40 mg capsule,delayed release(DR/EC) 40 mg PO DAILY Qty: 30 2RF famotidine 40 mg tablet 40 mg PO BID Qty: 60 3RF nitrofurantoin monohyd/m-cryst [Macrobid] 100 mg capsule 100 mg PO Q12H 5 Days Qty: 10 0RF Rx Instructions: must administer with a meal/food Follow-up/Referrals: Shashank Rodriguez MD [Physician, Family Practice] Referral Note: primary care provider UNKNOWN,DOCTOR [Primary Care Provider] Stand Alone Forms: Work/School Release IP Time of Disposition: 18:38
[2025-08-18 16:19] LABS: Hematocrit 43.1 % (37.0-47.0); Hemoglobin 14.0 g/dL (12.0-15.0); Immature Granulocyte Percent A 0.4 % (0-0.5); Lymphocytes Absolute Auto 3.28 K/mm3 (0.9-3.2); Mean Corpuscular HGB Conc 32.5 g/dl (32-36); Mean Corpuscular Hemoglobin 29.5 pg (26-34); Mean Corpuscular Volume 90.9 fl (80-100); Nucleated Red Blood Cells Absolute Auto 0.000 K/mm3 (0.0-0.012); Nucleated Red Blood Cells Perc 0.0 % (0.0-0.2); Platelet Count Result 383 k/mm3 (150-375); Red Blood Count 4.74 M/mm3 (4.2-5.4); White Blood Count 12.7 K/mm3 (4.5-10.0)
[2025-08-18 16:26] LABS: BEDSIDEPREGUCG Negative (Negative)
[2025-08-18] MEDS: SODIUM CHLORIDE 0.9% IV 1,000 ML 999 ML IV CONT (16:29)
[2025-08-18] MEDS: BELLADONNA ALK/PHENOB ELIX 10 ML, MAG HYDROX/ALUMINUM HYD/SIMETH 30 ML, LIDOCAINE 2% VI... PO (16:29)
[2025-08-18 16:33] LABS: Alanine Aminotransferase 23 U/L (6-35); Albumin Level 4.6 g/dL (3.5-5.1); Alkaline Phosphatase 74 U/L (38-126); Anion Gap 9 mmol/L (4-12); Aspartate Amino Transferase 33 U/L (14-36); Bilirubin,Total 0.5 mg/dL (0.2-1.3); Blood Urea Nitrogen 6 mg/dL (7-17); Calcium 9.8 mg/dL (8.4-10.2); Carbon Dioxide 27 mmol/L (22-30); Chloride 99 mmol/L (98-107); Estimated CRCL calculation 86 ml/min; Estimated Glomerular Filt Rate > 60; Glucose 94 mg/dL (65-110); Lipase 41 U/L (23-300); Potassium 3.4 mmol/L (3.4-5.0); Sodium 135 mmol/L (137-145); Total Protein 8.0 g/dL (6.3-8.2)
[2025-08-18 16:38] LABS: Add Urine Microscopic? YES; Appearance Urine Cloudy (Clear); Glucose Urine UA Negative (Negative); Leukocyte Esterase Ur Trace LEU/UL (Negative); Need Manual Microscopic Reviewed; Nitrate Urine Negative (Negative); Non Pathogenic Casts 0-2; Specific Grav Ur 1.027 (1.001-1.035)
[2025-08-18 18:06] LABS: Cannabinoid Screen Urine Positive (Negative)
[2025-08-18] MEDS: SULFAMETHOXAZOLE/TRIMETHOPRIM 800/160 MG DS TABLET 1 TAB PO (18:46)
== END 2025-08-18 18:52 | disposition home or self-care (01) ==
PROVIDERS: Emergency Medicine; Emergency Provider Registered Nurse
DX: N39.0 Urinary tract infection, site not specified (principal); K21.9 Gastro-esophageal reflux disease without esophagitis; R10.13 Epigastric pain; F17.290 Nicotine dependence, other tobacco product, uncomplicated; F12.90 Cannabis use, unspecified, uncomplicated
CPT/HCPCS: 36415; 80053; 80307; 81001; 81025; 83690; 85025; 96360; 99283; A9270; J7030